=== PATIENT | female | born 1985 | race Caucasian/White ===

== ENCOUNTER 2019-08-16 16:07 | Emergency (ER) | payer OTHER, SELFPAY ==
--- NOTE | 2019-08-16 16:17 | PC.NURSE ---
Paper documentation exists on this patient due to [employer] downtime on 08/16/19 from 1520 to [???] .
--- NOTE | 2019-08-16 16:49 | ED_ITS ---
HPI - Wound/Laceration General Chief Complaint: Wound/Laceration Time Seen by Provider: 08/16/19 16:29 Source: patient Mode of arrival: ambulatory Limitations: no limitations History of Present Illness HPI narrative: This is a 33-year-old female that presents emergency department for laceration sustained 2 days ago. Reports she was in [place] walking into a spot and hit her escobedo on a concrete wall. Reports she has been cleaning the area daily. Reports she declined any treatment initially. Reports she is worried about infection due to being on immunosuppressive medications. Reports she is up-to-date on tetanus. Denies fever, erythema, or abnormal drainage. Review of Systems Review of Systems: Narrative: CONSTITUTIONAL: Denies fever SKIN: Reports laceration. Denies erythema All systems reviewed & are unremarkable except as noted in HPI and below PMFSH Past Medical History Medical History (Updated 08/16/19 @ 17:00 by Heidi Purcell PA-C) History of systemic lupus erythematosus Social History Social History (Updated 08/16/19 @ 16:55 by Heidi Purcell PA-C) Substance use: never Gender identity (if verbalized by the patient): Female Exam Narrative: Exam Narrative: GENERAL: Well-appearing, well-nourished, and in no acute distress. HEAD: Normocephalic, atraumatic. EYES: EOMI. EXTREMITIES: Normal range of motion. 1cm linear laceration into subcutaneous tissue over left escobedo. No edema, erythema or abnormal drainage. SKIN: Warm, dry, no rash. NEURO: No focal deficits. Alert and oriented x3. PSYCH: Normal mood and affect MDM - Wound/Laceration MDM Narrative Medical decision making narrative: Patient presents the emergency department for left escobedo laceration sustained 2 days ago. Patient is afebrile and nontoxic- appearing. No erythema or normal drainage to the wound to suggest infection at this time. With patient being on immunosuppressive medications and having an open wound, I will start her on a prophylactic antibiotic. She is already up-to-date on tetanus. She was instructed on wound care. She is to follow-up with primary care doctor. She was given warnings to return to the ER Critical Care Time Critical Care Time Critical Care Time: No Discharge Plan Discharge Clinical Impression: Laceration Patient Disposition: Home, Self-Care Condition: Stable Instructions: Antibiotic Form, Laceration Without Closure (ED) Additional Instructions: Return to the emergency department if you experience fever, redness or swelling of your wound, abnormal drainage from your wound, or any other symptoms that are concerning to you. Apply antibiotic ointment daily. Do not soak the wound. Clean with mild soap and water daily Follow-up with your primary care doctor Prescriptions: New cephalexin 500 mg capsule 500 mg PO Q6H 5 Days Qty: 20 RF: 0 Follow-up/Referrals: Isak Lou MD [Primary Care Provider] - 1 Week Time of Disposition: 16:50
[2019-08-16 17:02] VITALS: BP 113/73; PULSE 110; RESP 18; TEMP 37.2; O2SAT 99
== END 2019-08-16 17:03 | disposition home or self-care (01) ==
PROVIDERS: Emergency Provider Emergency Medicine; PCP Family Medicine
DX: S81.812A Laceration without foreign body, left lower leg, initial encounter (principal); M32.9 Systemic lupus erythematosus, unspecified; W22.01XA Walked into wall, initial encounter
CPT/HCPCS: 99283

== ENCOUNTER 2020-01-12 12:37 | Outpatient (CLI) | payer OTHER, SELFPAY ==
--- NOTE | ~2020-01-12 | MR_ITS ---
EXAMINATION: MR lumbar spine wo con DATE: 01/12/2020 13:27 INDICATION: Low back pain. TECHNIQUE: Magnetic resonance imaging (MRI) of the lumbar spine was performed without intravenous con trast. Sequences included sagittal T2-weighted FSE, sagittal T2-weighted FS FSE, sagittal T1-weighted FSE, and axial T2-weighted FSE. COMPARISON: Lumbar spine radiographs 04/22/2015 FINDINGS: Bone alignment is normal. Vertebral body heights are normal. There is moderately decreased disc height at L5-S1. The distal spinal cord signal intensity is normal. The conus medullaris is at T 12. The following disc levels are specifically discussed: L1-L2: The disc does not extend beyond the endplate margin. There is mild bilateral facet joint osteo arthritis. There is no neural foraminal stenosis. There is no central canal stenosis. L2-L3: There is a left central extrusion. There is mild bilateral facet joint osteoarthritis. There i s mild bilateral neural foraminal stenosis. There is mild central canal stenosis. L3-L4: The disc is bulging and has an annular fissure. There is mild bilateral facet joint osteoarthr itis. There is mild bilateral neural foraminal stenosis. There is mild central canal stenosis. L4-L5: There is a broad-based central extrusion. There is mild bilateral facet joint osteoarthritis. There is mild bilateral neural foraminal stenosis. There is mild central canal stenosis. L5-S1: The disc is bulging and has an annular fissure. There is mild bilateral facet joint osteoarthr itis. There is mild bilateral neural foraminal stenosis. There is mild central canal stenosis. IMPRESSION: 1. Moderate lumbar spondylosis. Reviewed, dictated and finalized at location A.
== END 2020-01-12 12:38 | disposition home or self-care (01) ==
PROVIDERS: PCP Family Medicine; Visit Provider Anesthesiology Pain Medicine
DX: M47.896 Other spondylosis, lumbar region (principal)
CPT/HCPCS: 72148

== ENCOUNTER 2020-05-20 09:30 | Outpatient (RCR) | payer OTHER, SELFPAY ==
--- NOTE | 2020-03-05 16:39 | PTOPEVAL ---
Thank you for referring Raine Bucio to [facility] The patient is scheduled to be seen for therapy? 2x/week for 8 weeks. Please review, sign, date and return this plan of care MIGUELANGEL. I agree with and certify that the following plan of care is medically necessary. Referring Physician Date Admitting Provider: Attending Provider: Hari Lima, *PT Outpatient Evaluation Start: 03/05/20 09:24 Freq: Status: Active Protocol: Document 03/05/20 09:22 REBECCA (Rec: 03/05/20 10:04 [email or web address] [id number]) Therapy Assessment Status Assessment Status Assessment Status Evaluation Outpatient Past Medical History Past Medical History Source of Past Medical History Patient Neurological History Hx Neurological Disorders No Significant History Cardiovascular History Hx Cardiac Disorders No Significant History Respiratory History Hx Respiratory Disorders No Significant History Musculoskeletal History Hx Arthritis Yes: RA and OA of back Hx Back Pain Yes: chronic Endocrine History Hx Systemic Lupus Erythematosus Yes Evaluation Information Problem Diagnosis lumbago Onset 08/29 Cause unknown. Additional Evaluation Detail last bout of therapy [id number] for back and feet and again in 2018 for back she has not been working since 07/2018 Subjective Information She has been having back pain Query Text:As Reported By Patient/ since 08/29. She did take Family narcotics for the pain, but was weaned off in October. She was seen at the ED 01/26 due to the increased pain. She had a steriod injection to her back without relief. She performs stretching to keep the back from locking up . She reports left hip pain that radiating to back and left LE. Reports her left LE turns out when walking. She feels like her back pain is a disease that just attacks her. Reports difficulty with sleeping, walking or standing for prolonged time. She is limited with lifting to light objects due to the pain. She is unable to lift her 38# child. She does not
--- NOTE | 2020-04-01 12:52 | PCPTNOTE ---
Patient did not show up for scheduled appointment this date. Pt states she was running late for her appointment and was not going to make it. She was rescheduled for a treatment next wk. Then reschedule her re-eval.
--- NOTE | 2020-04-14 10:32 | PTOPEVAL ---
Thank you for referring Raine Bucio to [facility].? She has attended 7 therapy visits with limited progress with strength, function and tolerance with HEP. The patient is scheduled to be seen for therapy? 1-2 x/week for 3-4 weeks for 6 additional therapy visits. Please review, sign, date and return this plan of care MIGUELANGEL. I agree with and certify that the following plan of care is medically necessary. Referring Physician Date Attending Provider: Hari Lima, *PT Outpatient Evaluation Start: 03/05/20 09:24 Freq: Status: Active Protocol: Document 04/14/20 08:00 CAP (Rec: 04/14/20 08:50 CAP [id number]) Therapy Assessment Status Assessment Status Assessment Status Re-evaluation Evaluation Information Problem Diagnosis lumbago Onset 08/29 Cause unknown. Additional Evaluation Detail last bout of therapy [id number] for back and feet and again in 2018 for back she has not been working since 07/2018 She has been having back pain since 08/29. She did take narcotics for the pain, but was weaned off in October. She was seen at the ED 01/26 due to the increased pain. She had a steriod injection to her back without relief. Subjective Information She is performing the Query Text:As Reported By Patient/ exercises to keep the back Family loose. She reports no changes in the left hip pain that radiating to back and left LE. She sleeps on an incline with pillows due the pain. Denies any progress with her yousif with walking or standing. She is limited with lifting to light objects of 20-25# due to the pain. She is unable to lift her 38# child. She is performing only light food task of warming up food. Her sister helps with information systems professor and food prep. Pain Assessment Timing of Pain Assessment Timing of Pain Assessment Re-assessment Pain Scale Pain Scale Used Numeric (1 - 10) Self Report Pain Assessment Left Back Reported Pain Level 7 Pain Description Aching,Dull,Radiating,Sharp
--- NOTE | 2020-04-23 09:51 | PCPTNOTE ---
Patient arrived to appointment 30 min early and was unable to stay for her scheduled visit time.
--- NOTE | 2020-05-01 13:50 | PCPTNOTE ---
Patient called & cancelled scheduled appointment this date due to being sick.
--- NOTE | 2020-05-12 10:58 | PTOPEVAL ---
Thank you for referring Raine Bucio to [facility].? The patient is scheduled to be seen for therapy? 1 x/week for 3-4 weeks. Please review, sign, date and return this plan of care MIGUELANGEL. I agree with and certify that the following plan of care is medically necessary. Referring Physician Date Attending Provider: Hari Lima, Referring Provider: *PT Outpatient Evaluation Start: 03/05/20 09:24 Freq: Status: Active Protocol: Document 05/12/20 09:55 REBECCA (Rec: 05/12/20 10:34 REBECCA [id number]) Therapy Assessment Status Assessment Status Assessment Status Re-evaluation/Progress Note Evaluation Information Problem Diagnosis lumbago Onset 08/29 Cause unknown. Additional Evaluation Detail last bout of therapy [id number] for back and feet and again in 2018 for back she has not been working since 07/2018 She has been having back pain since 08/29. She did take narcotics for the pain, but was weaned off in October. She was seen at the ED 01/26 due to the increased pain. She had a steriod injection to her back without relief. Subjective Information She reports increased pain Query Text:As Reported By Patient/ with lifting, walking > 30 min Family , standing > 30 min, prolonged sitting. She does feel like the exercises are helping. She is performing HEP 5-7x/wk. She report pain is staying in the back vs radiating into the hip region. She sleeps occasionally incline with pillows due the pain. She is unable to lift light objects of 20-25# due to the pain. Pain Assessment Timing of Pain Assessment Timing of Pain Assessment Re-assessment Pain Scale Pain Scale Used Numeric (1 - 10) Self Report Pain Assessment Left Back Reported Pain Level 6 Pain Description Aching,Dull,Radiating,Sharp Pain Frequency Chronic,Continuous Lowest Pain Intensity 5 Greatest Pain Intensity 8 Pain Aggravating Factors ADL's,Bending,Exercise/ Activity,Lifting,Prolonged
--- NOTE | 2020-05-20 09:43 | PCPTNOTE ---
Patient did not show up for scheduled appointment this date.Called pt to inform her she had exceeded the cancellation/no show policy. Her remaining appointments will be removed.
--- NOTE | 2020-05-22 09:37 | PCPTNOTE ---
Admitting Provider: Attending Provider: Hari LimaMD Patient:Raine Bucio Date of :1985 Discharge Note Patient has not returned for any further treatments since 05/12/2020, therefore she will be discharged at this time. Patient?s initial visit was on 03/05/2020 09:15 and she had a total of 9 visits. She had 5 no show/cancelled visits. No changes in function or goals since update on 05/12/20. The goals have been partially met. Thank you for referring this patient to [facility]. Please review, sign, date and return this discharge summary MIGUELANGEL. I have been updated about the patient's current status and I agree with discharge from the above service at this time. Referring Physician Date
== END 2020-05-22 11:49 | disposition home or self-care (01) ==
LOC: ANHPT 09:30
PROVIDERS: PCP Family Medicine; Visit Provider Anesthesiology Pain Medicine
DX: M54.5 Low back pain (principal)
CPT/HCPCS: 97014; 97110; 97140; 97163; 97530; G0283

== ENCOUNTER 2020-05-25 10:02 | Outpatient (CLI) | payer OTHER, SELFPAY ==
--- NOTE | ~2020-05-25 | XR_ITS ---
EXAMINATION: XR chest 2V DATE: 05/25/2020 10:21 INDICATION: Encounter for therapeutic drug monitoring. Lupus and rheumatoid arthritis. TECHNIQUE: Frontal and lateral views of the chest were obtained. COMPARISON: Chest single view 03/01/2008 FINDINGS: The chest demonstrates clear lungs without pneumonia, pleural effusion, or pneumothorax. Th e heart size is normal. There are bilateral breast implants. IMPRESSION: 1. No acute cardiopulmonary disease. Reviewed, dictated and finalized at location A. GER GAS
== END 2020-05-25 10:03 | disposition home or self-care (01) ==
LOC: ANHIMG 10:09
PROVIDERS: PCP Family Medicine; Visit Provider Internal Medicine Rheumatology
DX: Z51.81 Encounter for therapeutic drug level monitoring (principal)
CPT/HCPCS: 71046

== ENCOUNTER 2021-01-14 11:48 | Emergency (ER) | payer MEDICARE, MEDICAID, SELFPAY ==
--- NOTE | ~2021-01-14 | XR_ITS ---
EXAMINATION: XR chest 1V DATE: 01/14/2021 12:31 INDICATION: Speech deficit. TECHNIQUE: A single frontal view of the chest was obtained. COMPARISON: Chest 2 views 05/25/2020 FINDINGS: The chest demonstrates clear lungs without pneumonia, pleural effusion, or pneumothorax. Th e heart size is normal. Breast implants are noted. IMPRESSION: 1. No acute cardiopulmonary disease. Reviewed, dictated and finalized at location A.
--- NOTE | ~2021-01-14 | CT_ITS ---
EXAMINATION: CT brain wo con DATE: 01/14/2021 12:27 INDICATION: Expressive aphasia TECHNIQUE: Computed tomography (CT) of the head was performed without intravenous contrast. The mA wa s adjusted according to patient size. Iterative reconstruction technique was employed. Exam dose: 68 1.00 mGy-cm total exam DLP. COMPARISON: 10/14/2007 CT brain FINDINGS: No intracranial mass lesion or hemorrhage or cerebrovascular accident is evident. No midlin e shift or mass effect effect. Normal ortega-white matter differentiation. Normal ventricular size. No subdural or epidural hematoma. The mastoid air cells and included paranasal sinuses are normally aerated. The frontal sinuses are vi rtually undeveloped. No fracture or bone destruction of the cranial vault. IMPRESSION: No significant abnormality Reviewed, dictated and finalized at Location A. Reviewed, dictated and finalized at location A. IMPRESSION: No significant abnormality
[2021-01-14 12:02] VITALS: BP 112/45; PULSE 100; RESP 16; TEMP 37.5; O2SAT 99
--- NOTE | 2021-01-14 12:04 | ECG_ITS ---
Measurements Intervals [place] Rate: 88 P: 73 WI: 122 QRS: 30 QRSD: 91 T: 53 QT: 370 QTc: 450 Interpretive Statements SINUS RHYTHM POSSIBLE LEFT ATRIAL ENLARGEMENT BORDERLINE ST-T WAVE ABNORMALITY- ANTEROLAT/INF LEADS BORDERLINE ECG Electronically Signed On 01-14-2021 15:32:27 CDT by Tad Munguia D.O.
[2021-01-14 12:20] LABS: Basophils Percent Auto 0.3 % (0.2-1.2); Eosinophils Percent Auto 0.1 % (0-4.4); Hematocrit 38.5 % (37.0-47.0); Immature Granulocyte Absolute 0.02 K/mm3 (0.00-0.031); Immature Granulocyte Percent A 0.3 % (0-0.5); Lymphocytes Absolute Auto 0.94 K/mm3 (0.9-3.2); Lymphocytes Percent Auto 12.1 % (18.3-44.2); Mean Corpuscular HGB Conc 33.8 g/dl (32-36); Mean Corpuscular Hemoglobin 31.2 pg (26-34); Mean Corpuscular Volume 92.3 fl (80-100); Mean Platelet Volume 9.1 fl (7.4-10.4); Monocytes Absolute Auto 0.4 K/mm3 (0.1-0.6); Neutrophils Absolute Auto 6.4 K/mm3 (1.3-6.7); Neutrophils Percent Auto 82.2 % (45.5-73.1); Platelet Count Result 236 k/mm3 (150-375); Red Blood Count 4.17 M/mm3 (4.2-5.4); Red Cell Distribution Width 12.5 % (11.5-14.5); White Blood Count 7.8 K/mm3 (4.5-10.0)
[2021-01-14 12:40] LABS: Prothrombin Time 13.2 Seconds (11.1-14.7); Troponin I < 0.012 ng/mL (0.000-0.034)
[2021-01-14 12:48] LABS: Anion Gap 5 mmol/L (8-16); Blood Urea Nitrogen 12 mg/dL (7-17); Calcium 9.4 mg/dL (8.4-10.2); Carbon Dioxide 29 mmol/L (22-30); Chloride 105 mmol/L (98-107); Estimated CRCL calculation 45 ml/min; Estimated Glomerular Filt Rate 43; Glucose 98 mg/dL (65-105); Potassium 4.5 mmol/L (3.4-5.0); Sodium 139 mmol/L (137-145)
[2021-01-14 14:52] VITALS: BP 106/52; PULSE 65; RESP 16; TEMP 37.2; O2SAT 99
--- NOTE | 2021-01-14 15:35 | ED.GENADULT ---
HPI - General Adult General Chief complaint: Neuro Symptoms/Deficit Stated complaint: difficulty speaking for 2 months Time Seen by Provider: 01/14/21 15:08 Source: patient and RN notes reviewed Mode of arrival: ambulatory Limitations: no limitations History of Present Illness HPI narrative: Patient is a 35-year-old female who presents for evaluation of some difficulty with expressing herself noting that she knows what she wants to say but has difficulty getting the words out this is been going on for 2 months patient has not seen primary care for above presents per request of primary patient notes she has had some intermittent mild head denies any other deficits or complaints or similar occurrence Related Data Allergies Allergy/AdvReac Type Severity Reaction Status Date / Time No Known Allergies Allergy Verified 01/14/21 15:31 Review of Systems Review of Systems: All systems reviewed & are unremarkable except as noted in HPI and below PMFSH Past Medical History Medical History History of systemic lupus erythematosus Social History Social History Smoking status: Former smoker Alcohol intake: never Substance use: never Gender identity (if verbalized by the patient): Female Exam Narrative: Exam Narrative: GENERAL: Well-appearing, well-nourished, and in no acute distress. HEAD: Normocephalic, atraumatic. EYES: PERRLA and EOMI. ENT: Nares clear, no rhinorrhea or epistaxis. Mucous membranes moist. CHEST: Clear to auscultation. No respiratory distress. No wheezes rales or rhonchi HEART: Regular rate and rhythm. No murmur heard. Normal peripheral pulses. ABDOMEN: Soft, nontender, nondistended EXTREMITIES: Normal range of motion. No edema. SKIN: Warm, dry, no rash. NEURO: No focal deficits. Alert and oriented x3. Cranial nerves II through XII grossly intact. Normal speech. Normal gait. Cerebellar intact. No pronator drift. Equal rn allergy. PSYCH: Normal mood and affect. Course Course Emergency Course: Patient evaluated for expressive aphasia no concerning findings on her evaluation today will be discharged back for follow-up with her primary care for reevaluation referrals if necessary provided with reasons to return. ABCs and vital signs intact and stable Vital Signs Vital signs: Vital Signs Temperature 99.5 F 01/14/21 12:02 Pulse Rate 100 01/14/21 12:02 Respiratory Rate 16 01/14/21 12:02 Blood Pressure 112/45 L 01/14/21 12:02 Pulse Oximetry 99 01/14/21 12:02 Temperature 99.0 F 01/14/21 14:52 Pulse Rate 65 01/14/21 14:52 Respiratory Rate 16 01/14/21 14:52 Blood Pressure 106/52 L 01/14/21 14:52 Pulse Oximetry 99 01/14/21 14:52 Medical Decision Making MDM Narrative Medical decision making narrative: On presentation patient is with no focal neurological deficits on exam. Subarachnoid hemorrhage is felt to be unlikey at this time. There is no history of fever, and neck is supple without meningismus, making meningitis unlikely. No traumatic history or signs of trauma on exam. No risk factors for CVA, risk factors reviewed. NO ocular signs on exam and in history to suggest acute glaucoma. Patients headache is felt to be a reasonable candidate for outpatient evaluation Vital Signs Vital Signs: Vital Signs Temperature 99.5 F 01/14/21 12:02 Pulse Rate 100 01/14/21 12:02 Respiratory Rate 16 01/14/21 12:02 Blood Pressure 112/45 L 01/14/21 12:02 Pulse Oximetry 99 01/14/21 12:02 Temperature 99.0 F 01/14/21 14:52 Pulse Rate 65 01/14/21 14:52 Respiratory Rate 16 01/14/21 14:52 Blood Pressure 106/52 L 01/14/21 14:52 Pulse Oximetry 99 01/14/21 14:52 Lab Data Result diagrams: 01/14/21 12:08 01/14/21 12:08 Labs: Lab Results 01/14/21 01/14/21 01/14/21 Range/Units 12:08 12:08 12:08 WBC 7.8 (4.
== END 2021-01-14 16:12 | disposition home or self-care (01) ==
LOC: ANHED 16:00
PROVIDERS: Emergency Provider Emergency Medicine
DX: F80.1 Expressive language disorder (principal); M32.9 Systemic lupus erythematosus, unspecified; Z87.891 Personal history of nicotine dependence
CPT/HCPCS: 36415; 70450; 71045; 80048; 84484; 85025; 85610; 85730; 93005; 99284

== ENCOUNTER 2021-02-05 10:30 | Emergency (ER) | payer MEDICARE, MEDICAID, SELFPAY ==
--- NOTE | ~2021-02-05 | XR_ITS ---
EXAMINATION: XR ankle LT min 3V EXAM DATE: 02/05/2021 11:14 INDICATION: Initial encounter following injury, with pain of the left ankle laterally. TECHNIQUE: Left ankle frontal, lateral and oblique projections obtained and reviewed. Comparison is m inocente to prior examination from 11/13/2018. FINDINGS: The left ankle mortise appears intact. There are no acute fractures or dislocations ident ified. There is no subcutaneous gas. There is soft tissue swelling ankle laterally. There are no r adiopaque foreign bodies. IMPRESSION: 1. XR ankle LT min 3V exam without acute osseous findings. 2. Soft tissue swelling. Reviewed, dictated and finalized at location B.
[2021-02-05 11:00] VITALS: BP 112/68; PULSE 95; RESP 12; O2SAT 99
[2021-02-05 11:06] VITALS: BP 111/71; PULSE 98; RESP 14; TEMP 37.4; O2SAT 99
[2021-02-05] MEDS: IBUPROFEN 600 MG TABLET PO (11:13)
--- NOTE | 2021-02-05 12:09 | ED.GENADULT ---
HPI - General Adult General Chief complaint: Extremity Injury, Lower <Thony Neumann PA-C - Last Filed: 02/05/21 12:14> Stated complaint: fall, Left ankle injury <Thony Neumann PA-C - Last Filed: 02/05/21 12:14> Time Seen by Provider: 02/05/21 10:42 <Thony Neumann PA-C - Last Filed: 02/05/21 12:14> Source: patient and RN notes reviewed <Thony Neumann PA-C - Last Filed: 02/05/21 12:14> Mode of arrival: ambulatory <Thony Neumann PA-C - Last Filed: 02/05/21 12:14> Limitations: no limitations <Thony Neumann PA-C - Last Filed: 02/05/21 12:14> History of Present Illness HPI narrative: Patient 35-year-old female who presents with left ankle injury that occurred last night after rolling the ankle while walking notes abrasion to the escobedo patient notes aching pain at the ankle joint worse with weightbearing and activity denies any other injuries or complaints presents in no distress has not taken anything for her symptoms <Thony Neumann PA-C - Last Filed: 02/05/21 12:14> Related Data Allergies/adverse reactions: Allergies Allergy/AdvReac Type Severity Reaction Status Date / Time No Known Allergies Allergy Verified 01/14/21 15:31 <Thony Neumann PA-C - Last Filed: 02/05/21 12:14> Review of Systems Review of Systems: All systems reviewed & are unremarkable except as noted in HPI and below <Thony Neumann PA-C - Last Filed: 02/05/21 12:14> [facility] Past Medical History Medical History: Medical History History of systemic lupus erythematosus <Thony Neumann PA-C - Last Filed: 02/05/21 12:14> Social History Social History: Social History Smoking status: Former smoker Alcohol intake: never Substance use: never Gender identity (if verbalized by the patient): Female <Thony Neumann PA-C - Last Filed: 02/05/21 12:14> Exam Narrative: GENERAL: Well-appearing, well-nourished, and in no acute distress. HEAD: Normocephalic, atraumatic. EYES: PERRLA and EOMI. ENT: Nares clear, no rhinorrhea or epistaxis. Mucous membranes moist. NECK: Supple. No adenopathy or masses. CHEST: Clear to auscultation. No respiratory distress. No wheezes rales or rhonchi HEART: Regular rate and rhythm. No murmur heard. Normal peripheral pulses. ABDOMEN: Soft, nontender, nondistended. EXTREMITIES: Bruising swelling and tenderness of the left ankle joint, abrasion of the left escobedo SKIN: Warm, dry, no rash. NEURO: No focal deficits. Alert and oriented x3. Cranial nerves II through XII grossly intact, neurovascularly intact PSYCH: Normal mood and affect. <Thony Neumann PA-C - Last Filed: 02/05/21 12:14> Course Course Emergency Course: Patient in the room no distress aware of case findings treatment plan diagnosis Eze wrap crutches applied will be discharged home provided with orthopedic follow-up <Thony Neumann PA-C - Last Filed: 02/05/21 12:14> Vital Signs Vital signs: Vital Signs Pulse Rate 95 02/05/21 11:00 Respiratory Rate 12 02/05/21 11:00 Blood Pressure 112/68 02/05/21 11:00 Pulse Oximetry 99 02/05/21 11:00 Temperature 99.4 F 02/05/21 11:06 Pulse Rate 98 02/05/21 11:06 Respiratory Rate 14 02/05/21 11:06 Blood Pressure 111/71 02/05/21 11:06 Pulse Oximetry 99 02/05/21 11:06 <Thony Neumann PA-C - Last Filed: 02/05/21 12:14> Vital Signs Pulse Rate 95 02/05/21 11:00 Respiratory Rate 12 02/05/21 11:00 Blood Pressure 112/68 02/05/21 11:00 Pulse Oximetry 99 02/05/21 11:00 Temperature 99.4 F 02/05/21 11:06 Pulse Rate 98 02/05/21 11:06 Respiratory Rate 14 02/05/21 11:06 Blood Pressure 111/71 02/05/21 11:06 Pulse Oximetry 99 02/05/21 11:06 <Tami Dominguez MD - Last Filed: 02/05/21 17:14> Medical Decision Making MDM Shanika M
== END 2021-02-05 12:25 | disposition home or self-care (01) ==
PROVIDERS: Emergency Provider General Practice
DX: S93.402A Sprain of unspecified ligament of left ankle, initial encounter (principal); S96.912A Strain of unspecified muscle and tendon at ankle and foot level, left foot, initial encounter; M32.9 Systemic lupus erythematosus, unspecified; Z87.891 Personal history of nicotine dependence; X50.9XXA Other and unspecified overexertion or strenuous movements or postures, initial encounter; Y93.01 Activity, walking, marching and hiking
CPT/HCPCS: 73610; 99283; A9270

== ENCOUNTER 2022-03-18 09:45 | Emergency (ER) | payer OTHER, SELFPAY ==
[2022-03-18] VITALS (9 sets, daily range): BP systolic 118–122; BP diastolic 65–68; PULSE 86–100; RESP 13–20; O2SAT 96–100
--- NOTE | ~2022-03-18 | XR_ITS ---
EXAMINATION: XR chest 1V portable INDICATION: Shortness of breath and fever, COVID 19 positive TECHNIQUE: Portable AP chest at 1057 hours COMPARISON: 01/14/2021 FINDINGS: The lungs are free of acute opacities. No pleural effusion or pneumothorax. The cardiomedia stinal silhouette is normal. IMPRESSION: 1. No acute cardiopulmonary abnormality. Reviewed, dictated and finalized at location B.
--- NOTE | 2022-03-18 10:36 | ED.URI ---
HPI - URI/Sore Throat General Chief Complaint: Upper Respiratory Infection Stated Complaint: covid+, cough Time Seen by Provider: 03/18/22 09:58 History of Present Illness HPI Narrative: 36-year-old female history of rheumatoid arthritis presents emergency room for evaluation of a productive cough. Patient states that she was diagnosed with COVID on Monday and has been experiencing a productive cough since. has been taking Mucinex DM and Robitussin with little resolution of symptoms. Also complains of a labile temperature. Has been taking Tylenol and ibuprofen for her fevers and body aches. Denies any shortness of breath or difficulty breathing. Related Data Home Medications Medication Instructions Recorded Confirmed celecoxib 200 mg capsule 200 mg PO DAILY 02/17/21 04/02/21 duloxetine 20 mg capsule,delayed 20 mg PO DAILY 02/17/21 04/02/21 release etanercept 50 mg/mL (1 mL) 50 mg subcut WEEKLY 02/17/21 04/02/21 subcutaneous syringe (Enbrel) gabapentin 300 mg capsule 300 mg PO TID 02/17/21 04/02/21 hydroxychloroquine 200 mg tablet 200 mg PO DAILY 02/17/21 04/02/21 prednisone 50 mg tablet 60 mg PO DAILY 02/17/21 04/02/21 Allergies Allergy/AdvReac Type Severity Reaction Status Date / Time No Known Allergies Allergy Verified 03/18/22 10:16 Review of Systems Review of Systems: CONSTITUTIONAL: Denies fever, chills, or sweats. EYES: Denies visual changes, redness, or discharge. ENT: Denies rhinorrhea, congestion, sore throat, or otalgia. CARDIOVASCULAR: Denies chest pain, palpitations, or edema. RESPIRATORY: Reports cough GASTROINTESTINAL: Denies abdominal pain, nausea, vomiting, or diarrhea. GENITOURINARY: Denies dysuria or hematuria. SKIN: Denies rash or itching. MUSCULOSKELETAL: Denies back pain, joint pain, or myalgia. NEUROLOGIC: Denies headache, numbness, dizziness, or weakness. PSYCHIATRIC: Denies anxiety or depression. [facility] Past Medical History Medical History Anxiety Arthritis History of systemic lupus erythematosus Family History Family History Mother Skin cancer Depression Anxiety Social History Social History Smoking status: Former smoker Alcohol intake: never Substance use: never Gender identity (if verbalized by the patient): Female Exam Narrative: GENERAL: Well-appearing, well-nourished, no physical limitations, and in no acute distress. HEAD: Normocephalic, atraumatic. EYES: Conjunctivae normal, PERRLA and EOMI. CHEST: Clear to auscultation. No respiratory distress. No wheezes rales or rhonchi. No tenderness. HEART: Regular rate and rhythm. No murmur heard. Normal peripheral pulses. EXTREMITIES: Normal range of motion. No edema. No clubbing or cyanosis SKIN: Warm, dry, no rash. No noted wounds NEURO: No focal deficits. Alert and oriented x3. MAEW. CN's II-XI intact bilaterally, normal gait PSYCH: Cooperative. Normal mood and affect. Course Vital Signs Vital signs: Vital Signs Pulse Rate 86 03/18/22 10:08 Respiratory Rate 13 03/18/22 10:08 Pulse Oximetry 98 03/18/22 10:08 Pulse Rate 87 03/18/22 11:00 Respiratory Rate 14 03/18/22 11:00 Blood Pressure 118/68 03/18/22 10:15 Pulse Oximetry 100 03/18/22 11:04 Oxygen Delivery Room Air 03/18/22 11:04 MDM - URI/Sore Throat Imaging Data Radiologist's impression: Impressions Chest X-Ray 03/18/22 11:02 IMPRESSION: 1. No acute cardiopulmonary abnormality. Discharge Plan Discharge Clinical Impression: COVID, Upper respiratory infection, Cough Patient Disposition: Home, Self-Care Condition: Stable Instructions: Antibiotic Form, COVID-19 (Coronavirus Disease 2019) (ED) Prescriptions: New prednisone 20 mg tablet 60 mg PO DAILY 5 Days Qty: 15 0RF albuterol sulfate [Proventil
--- NOTE | 2022-03-18 11:04 | PC.NURSE ---
Patient report given to JOHANA Summers. All questions answered and care of patient transferred.
== END 2022-03-18 11:41 | disposition home or self-care (01) ==
PROVIDERS: Emergency Provider Nurse Practitioner Family; PCP Nurse Practitioner Family
DX: U07.1 COVID-19 (principal); M06.9 Rheumatoid arthritis, unspecified; F41.9 Anxiety disorder, unspecified; M32.9 Systemic lupus erythematosus, unspecified; Z87.891 Personal history of nicotine dependence
CPT/HCPCS: 71045; 96372; 99283; J1100

== ENCOUNTER 2024-08-16 10:36 | Emergency (ER) | payer MEDICARE, SELFPAY ==
--- NOTE | ~2024-08-16 | CT_ITS ---
CLINICAL INDICATION: Abdominal pain COMPARISON: 08/15/2006 TECHNIQUE: Multiple contiguous axial images of the abdomen and pelvis were performed following the ad ministration of with 100 mL Omnipaque-350 intravenous contrast The dose-length product (DLP) was 296.14 mGy-cm. Automated exposure control and iterative reconstruction technique were employed. FINDINGS/OBSERVATIONS: Visualized lower thorax: The bilateral lung bases are clear. The heart is of normal size, without pericardial effusion. Small hiatal hernia is present. Liver: The liver enhances homogeneously and is enlarged measuring 22 cm in longitudinal dimension. Trace per iportal edema. Gallbladder and biliary system: The gallbladder is only minimally distended, and otherwise unremarkable. Pancreas: The pancreas enhances homogeneously without ductal dilatation. Spleen: The spleen enhances homogeneously and is not enlarged measuring 10 cm in longitudinal dimension. Kidneys: The bilateral kidneys enhance symmetrically without hydronephrosis or renal calculi. Adrenal glands: Unremarkable. Gastrointestinal tract: Moderate fecal stasis. Appendix: The appendix is not definitively visualized. However, no pericecal inflammatory change is identified suggest the presence of acute appendicitis. Vasculature: Unremarkable. No aneurysmal dilatation or significant stenosis. Lymph nodes: No pathologically enlarged or morphologically suspicious lymph nodes within the retroperitoneum or at the root of the mesentery. Pelvic structures: The bladder is only minimally distended and otherwise unremarkable. The uterus is anteverted and anteflexed. Body wall and musculoskeletal: Trace degenerative disease of the level of L5/S1. IMPRESSION: No acute intra-abdominal pathology. Innumerable nonacute findings, as detailed above. Reviewed, dictated and finalized at location A. RWALKER
[2024-08-16 10:40] VITALS: BP 118/90; PULSE 60; RESP 14; TEMP 36.5; O2SAT 100
--- OUTSIDE RECORDS SUMMARY | 2024-08-16 11:19 | XMS_ITS | Encounter Summary ---
Author Organization [facility] [employer] Address [address] [place] [address] Care Team Providers Care Purchaser Name Role Phone Isaac Verdugo MD Primary Care Provider [phone] Encounter Details Date Type Department Care Team (Late st Contact Info) Description 08/20/2007 Outpatient Historical [facility] Conversion, History Social History Tobacco Use Types Packs/Day Years Used Date Smoking Tobacco: Never Assessed Comments Unknown Sex and Gender Information Value Date Recorded Sex Assigned at Not on file Legal Sex Female 3:53 AM ISSUER Gender Identity Not on file Sexual Orientation Not on file documented as of this encounter Plan of Treatment Not on file documented as of this encounter Visit Diagnoses Not on filedocumented in this encounter Care Teams Purchaser Relationship Specialty Start Date End Date Isaac Verdugo MD PCP - General 07/18/08 09/10/19 documented as of this encounter
--- OUTSIDE RECORDS SUMMARY | 2024-08-16 11:19 | XMS_ITS | Data Portability ---
Author Organization [facility] Address [address] [place] [address] Assessment Encounter Date Assessment Date Assessment LastModified by Organization Details LastModified Time 06/23/2021 06/23/2021 Annual gynecological exam performed. Patient will come back in a year unless there are new symptoms. Not available 06/23/2021 12:50:11 06/28/2022 06/28/2022 Annual gynecological exam performed. Patient will come back in a year unless there are new symptoms. [email or web address] Not available 06/28/2022 14:37:54 Plan of Treatment Reminders Order Date Submit Date Provider Last Modified By Organization Details Last Modified Time Details Appointments None recorded. Lab None recorded. Referral urogynecolo gist referral - Please contact Faby to schedule an appt. If you have any questions or require further information , please contact me at [phone]. Thank you, LANIE Dennis 2020 021 [email or web address] Marcello Hercules MD, [address], [place], [address], 10:04:45 gastroenter ology surgery referral - External hemorrhoids Please contact this patient to schedule an appointment . This patients insurance is [employer] [place].Rojas ched are the patients demographic s and most recent office visit notes.If you have any questions, please contact me at [phone].Thank you,Nunu, Referral's 2021 022 [email or web address] [email or web address] Baljit Guevara MD, [address] [place], [address], 3 16:52:17 Procedures None recorded. Surgeries None recorded. Imaging None recorded. Medication Orders None recorded. Patient TargetsNo targets recorded. Patient InstructionsNo instructions recorded. Reason for Referral Urogynecologist Referral for Urinary incontinence Please contact Faby to schedule an appt. If you have any questions or require further information, please contact me at [phone]. Thank you, LANIE Dennis Referring Physician: Dawna Car, [employer], Encounter Date: 06/23/2021 Gastroenterology Surgery Ref erral for External hemorrhoids External hemorrhoids External hemorrhoidsPlease contact this patient to schedule an appointment. This patients insurance is [employer] Integrated Medicare-Medicaid.Attached are the patients demographics and most recent office visit notes.If you have any questions, please contact me at [phone].Thank you,Agueda Eddy's Referring Physician: Dawna Car [employer]CH[employer], Encounter Date: 06/28/2022 Results Created Date Observation Date Name Description Value Unit Range Abnormal Flag Note LastModifiedBy Organization Detail LastModifiedTime 06/23/20 21 06/23/2021 urina lysis , dipst ick Leukocytes neg Not Available Starla yadav [address], [place], [address], 06/23/2021 16:16:22 06/23/20 21 06/23/2021 urina lysis , dipst ick Nitrite neg Not Available [place] [address], [place], [address], 06/23/2021 16:16:22 06/23/20 21 06/23/2021 urina lysis , dipst ick Urobilinogen 0.2 Not Available Ce orellana [address], [place], [address], 06/23/2021 16:16:22 06/23/20 21 06/23/2021 urina lysis , dipst ick Protein neg Not Available [place] [address], [place], [address], 06/23/2021 16:16:22 06/23/20 21 06/23/2021 urina lysis , dipst ick pH 5 Not Available [place] [address], [place], [address], 06/23/2021 16:16:22 06/23/20 21 06/23/2021 urina lysis , dipst ick Specific [place] 1.020 Not Available Dhiraj hernandez [address], [place], [address], 06/23/2021 16:16:22 06/23/20 21 06/23/2021 urina lysis , dipst ick Ketone neg Not Available [place] [address], [place], [address], 06/23/2021 16:16:22 06/23/20 21 06/23/2021 urina lysis , dipst ick Bilirubin neg Not Available Domingo woody [address], [place], [address], 06/23/2021 16:16:22 06/23/20 21 06/23/2021 urina lysis , dipst ick Glucose neg Not Available [place] [address], [place], [address], 06/23/2021 16:16:22 06/23/20 21 06/23/2021 urina lysis , dipst ick Appearance clear Not Available Starla yadav [address], [place], [address], 06/23/2021 16:16:22 06/23/20 21 06/23/2021 urina lysis , dipst ick Color straw Not Available [place] [address], [place], [address], 06/23/2021 16:16:22 06/24/20 21 06/24/2021 CULTU RE: URINE result report SEE RESULT S BELOW Test: Cultu re: Urine Speci men Sourc e: Urine Voide d Speci men Type: Urine Speci men Date: 06/24 12:12 PM Resul t Date: 06/25 9:55 PM Resul t Statu s: Final resul t Abnor mal: No Resul ting Lab: [facility] [address] [facility] [address] [facility] [address] Tel: CULTU RE ----- ----- ----- --- No growt h in 1 day (dete ction level of 10,00 0 colon ies / ml.) Not Available [facility] (Lab) [address], [place], [address], 06/25/2021 22:58:30 06/24/20 21 06/24/2021 IMAGE GUIDE D PAP AND HPV REGAR DLESS image guided Pap, HPV regardless of Pap result SEE RESULT S BELOW CASE REPOR T: Cytol ogy Gynec ologi tommy Repor t Case: [id number] Autho naty lim Provi swapnil: Braxton Sena Colle cted: 06/24 1352 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 Elect ruby miller alise d by Jonny Mobley on 07/06 at 3:36 PM ----- ----- ----- ----- ----- ----- ----- ----- ----- ----- ----- ----- ----- ----- ----- ----- ----- ---- HPV RESUL TS: HPV mRNA E6/E7 : No HPV mRNA Detec tangela NOTE: This high risk HPV mRNA assay detec ts fourt een high- risk HPV types (16, 18, 31, 33, 35, 39, 45, 51, 52, 56, 58, 59, 66, 68) witho ut diffe renti ation . COMME NT: Note: This speci men was revie wed by a Cytot echno logis t and/o r Patho logis t (as indic ated in this repor t) after evalu ation using the Thinp rep Imagi ng Syste m. CLINI TOMMY INFOR MATIO N: Menst rual Statu s: LMP (if appli cable ): Clini tommy Histo ry/Pr eviou s Pap: Type of Neopl piero (if appli cable ): Signi fican t Clini tommy Findi ngs: Other Histo ry: Hormo gregory (if appli cable ): PAP EDUCA SOMMER L NOTE: The Pap Test is a scree michaela test with an inher ent false negat aris rate. Liqui d-bas e sampl ing may decre ase, but will not elimi antoinette, false negat aris resul ts. A negat aris resul t does not precl ude the prese nce and/o r devel opmen t of disea se, since the prese nce of abnor mal cells in the sampl e depen ds on the locat ion of the lesio n and sampl ing techn ique. Alondra nued regul ar scree michaela is the best metho d of cance r preve ntion . If repor tangela cytol ogic findi ng do not corre late with physi tommy and/o r histo rical findi ngs, furth er inves tigat ion is recom ina d, as clini kamila barrera nted. Not Available [facility] (Lab) [address], [place], [address], 07/06/2021 16:40:25 06/24/20 21 06/24/2021 TRICH OMONA S VAGIN BRENDA (RRNA ) trichomonas vaginalis ribosomal RNA (rrna) Negati ve negati ve Not Available [facility] (Lab) [address], [place], [address], 07/06/2021 16:40:25 06/24/20 21 06/24/2021 CT/GC (DENIA) , THINP REP VIAL chlamydia trachomatis, PCR Negati ve negati ve Not Available [facility] (Lab) [address], [place], [address], 07/06/2021 16:40:26 06/24/20 21 06/24/2021 CT/GC (DENIA) , THINP REP VIAL neisseria gonorrhoeae, PCR Negati ve negati ve Not Available [facility] (Lab) [address], [place], [address], 07/06/2021 16:40:26 06/28/20 22 06/28/2022 IMAGE GUIDE D PAP AND HPV REGAR DLESS image guided Pap, HPV regardless of Pap result SEE RESULT S BELOW CASE REPOR T: Cytol ogy Gynec ologi tommy Repor t Case: [id number] Autho naty carina Provi swapnil: Braxton Sena Colle cted: 06/28 1734 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 Funga l organ isms morph ologi kamila consi stent with Alka da spp. Elect ruby miller alise d by Lucas Toth, CT on 06/30 at 11:07 AM ----- ----- ----- ----- ----- ----- ----- ----- ----- ----- ----- ----- ----- ----- ----- ----- ----- ---- HPV RESUL TS: HPV mRNA E6/E7 : No HPV mRNA Detec tangela NOTE: This high risk HPV mRNA assay detec ts fourt een high- risk HPV types (16, 18, 31, 33, 35, 39, 45, 51, 52, 56, 58, 59, 66, 68) witho ut diffe renti ation . COMME NT: Note: This speci men was revie wed by a Cytot echno logis t and/o r Patho logis t (as indic ated in this repor t) after evalu ation using the Thinp rep Imagi ng Syste m. CLINI TOMMY INFOR MATIO N: Menst rual Statu s: LMP (if appli cable ): Clini tommy Histo ry/Pr eviou s Pap: Type of Neopl piero (if appli cable ): Signi fican t Clini tommy Findi ngs: Other Histo ry: Hormo gregory (if appli cable ): PAP EDUCA SOMMER L NOTE: The Pap Test is a scree michaela test with an inher ent false negat aris rate. Liqui d-bas ed sampl ing may decre ase, but will not elimi antoinette, false negat aris resul ts. A negat aris resul t does not precl ude the prese nce and/o r devel opmen t of disea se, since the prese nce of abnor mal cells in the sampl e depen ds on the locat ion of the lesio n and sampl ing techn ique. Alondra nued regul ar scree michaela is the best metho d of cance r preve ntion . If repor tangela cytol ogic findi ng do not corre late with physi tommy and/o r histo rical findi ngs, fur er inves tigat ion is recom ina d, as clini kamila barrera nted. Not Available [facility] (Lab) [address], [place], [address], 06/30/2022 12:11:16 Result Notes Documentation Provider Name and Address Organization Details Recorded Time Pap, Ig + Hr Hpv : ok to file neg no pp la,rma Dawna Car, [facility]- [address], [place], [address], [place] [facility] 07/11/2021 20:06:51 Problems Name Problem SNOMED Code Status Onset Date Resolution Date Notes Provider Name and Address Organization Details Recorded Time Human papillom avirus deoxyrib onucleic acid detected , high risk on cervical specimen 540726790 Completed 201606/22/2021 Cervical high risk HPV DNA test positive ;Practic e ID: [address] [facility] 14:40:11 Acute vaginiti s [id number] Completed 201606/22/2021 Acute vaginiti s;Practi ce ID: [address] [facility] 14:39:08 Syphilis test finding [id number] Completed 201606/22/2021 Encntr screen for infectio ns w sexl mode of transmis s;Practi ce ID: [address] [facility] 14:40:42 Infectio n screenin g Completed 201606/22/2021 Encounte r for screenin g for oth infec/pa rastc diseases ;Practic e ID: [address] [facility] 14:40:13 Pregnanc y test negative [id number] Completed 201606/22/2021 Encounte r for pregnanc y test, result negative ;Practic e ID: [address] [facility] 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 14:40:37 Pelvic and perineal pain [id number] Completed 201606/22/2021 Pelvic and perineal pain;Pra ctice ID: [address] [facility] 14:40:22 Lesion of ovary Completed 201606/22/2021 Other ovarian cyst, right side;Pra ctice ID: [address] [facility] 14:40:03 Low grade squamous intraepi thelial lesion on vaginal Papanico laou smear [id number] 9105 Completed 201606/22/2021 Low grade intrepit h lesion cyto smr vagn (LGSIL); Practice ID: [address] [facility] 14:40:18 Herpes simplex [id number] Completed 201606/22/2021 Herpesvi ral infectio n, unspecif ied;Prac chandrakant ID: [address] [facility] 14:40:09 Low grade squamous intraepi thelial lesion on cervical Papanico laou smear [id number] 105 Completed 201706/22/2021 Low grade intrepit h lesion cyto smr crvx (LGSIL); Practice ID: [address] [facility] 14:40:17 Surveill ance of contrace ption Completed 201706/22/2021 Encounte r for surveill ance of contrace ptives, unspecif ied;Prac chandrakant ID: [address] [facility] 14:40:40 Condylom a acuminat um of the anogenit al region [id number] Completed 201406/22/2021 Condylom a acuminat um;Recor ded Elsewher e: No Locat ion: [facility] S ource: EHR Molding Cutter jessi: N Practi ce ID: 0001 Diomedes lable Time: 03:30:00 PM [facility] 14:39:14 Primigra florence [id number] Completed 201406/22/2021 Supervis ion of normal first pregnanc y;Record ed Elsewher e: No Locat ion: [facility] S ource: EHR Molding Cutter jessi: N Practi ce ID: 0001 Diomedes lable Time: 02:00:00 PM [facility] 14:40:32 Speciali zed medical examinat ion Completed 201306/22/2021 Routine gynecolo gical examinat ion;Prac chandrakant ID: [address] [facility] 14:40:38 Pregnanc y test positive [id number] Completed 201306/22/2021 Positive Pregnanc y Test;Pra ctice ID: 0001 Ashley Scott [facility], [facility] 14:40:30 Antenata l screenin g Completed 201306/22/2021 ANTENATA L SCREENIN G NEC;Prac chandrakant ID: 0001 Ashley arciniega [facility] 14:39:10 Ultrason ography Completed 201306/22/2021 Antenata l screenin g for malforma tion using ultrason ics;Prac chandrakant ID: 0001 Ashley arciniega [facility] 14:40:43 Congenit al malforma tion [id number] Completed 201306/22/2021 Antenata l screenin g for malforma tion using ultrason ics;Prac chandrakant ID: [address] [facility] 14:39:16 anatomy study Completed 201406/22/2021 [facility] ANATMC SURVEY;P moisés ID: 0001 Ashley arciniega [facility] 14:40:06 Delivery normal [id number] Completed 201406/22/2021 Normal delivery ;Practic e ID: 0001 Ashley arciniega [facility] 14:40:00 Single live [id number] Completed 201406/22/2021 Mother with single liveborn ;Practic e ID: [address] [facility] 14:40:33 Inflamma tory disorder of breast 648562453 Completed 201406/22/2021 Inflamma tory disease of breast;P moisés ID: [address] [facility] 14:40:14 Postpart um care Completed 201406/22/2021 Postpart um care and examinat ion of lactatin g mother;P moisés ID: [address] [facility] 14:40:27 Depressi ve disorder [id number] Completed 201406/22/2021 DEPRESSI VE DISORDER NEC;Prac chandrakant ID: [address] [facility] 14:40:01 Mental disorder s during pregnanc y, childbir th and the puerperi um [id number] Completed 201406/22/2021 Mental disorder s of mother, complica ting pregnanc y, childbir th, or the puerperi um, unspecif ied as to episode of care;Pra ctice ID: [address] [facility] 14:40:19 Fissure of nipple [id number] Completed 201406/22/2021 Fissure of nipple;P ractice ID: 0001 Ashley arciniega, [facility] 14:40:08 Uses combined oral contrace ption [id number] Completed 201506/22/2021 Encounte r for initial prescrip tion of contrace ptive pills;Pr actice ID: [address] [facility] 14:39:13 Placenta previa without hemorrha ge - not delivere d [id number] Completed 201406/22/2021 Placenta previa without hemorrha ge, antepart um;Pract ice ID: [address] [facility] 14:40:25 Congenit al OR acquired abnormal ity of cervix affectin g pregnanc y Completed 201406/22/2021 Other congenit al or acquired abnormal ity of cervix, antepart um conditio n or complica tion;Pra ctice ID: [address] [facility] 14:39:17 Acute upper respirat ory infectio n [id number] Completed 201406/22/2021 Acute upper respirat ory infectio ns of unspecif ied site;Pra ctice ID: [address] [facility] 14:39:07 Antenata l ultrasou nd scan for slow growth [id number] Completed 201406/22/2021 Antenata l screenin g for growth retardat ion using ultrason ics;Prac chandrakant ID: [address] [facility] 14:39:[address] Concept Completed 201706/22/2021 Encntr for general adult medical exam w/o abnormal findings ;Recorde d Elsewher e: No Locat ion: Domingo woody [facility] S ource: EHR Molding Cutter jessi: N Practi ce ID: 0001 Diomedes lable Time: 03:29:00 PM Ashley Scott [facility] 14:40:35 Evaluati on finding Completed 201606/22/2021 Unsp abnormal cytolog findings in specmn from cervix uteri;Re corded Elsewher e: No Locat ion: [facility] S ource: EHR Molding Cutter jessi: N Practi ce ID: 0001 Diomedes lable Time: 03:00:00 PM [facility] 14:40:05 Cyst of ovary Completed 201606/22/2021 Unspecif ied ovarian cyst, unspecif ied side;Rec orded Elsewher e: No Locat ion: [facility] S ource: EHR Molding Cutter jessi: N Kenya ce ID: 0001 Diomedes lable Time: 08:24:28 AM Ashley Scott [facility] 14:39:19 Problem Notes None recorded. Procedures Surgical History Date Name Laterality Status Provider Name and Address Organization Details Recorded Time 06/24/20 21 Date of Last Pap Smear completed Flower Crocker [facility] 06/28/2022 14:38:34 06/14/20 21 Breast augmentation w/implt completed ABDIAZIZ Cohen- [address], [place], [address], [facility] 06/28/2022 14:45:25 03/21/20 17 Colposcopy completed [facility] 06/22/2021 17:24:23 Removal of adenoids completed [facility] 06/22/2021 17:26:54 cryosurgery completed [facility] 06/22/2021 17:27:05 Imaging Results None recorded. Procedure Notes None recorded. Medical Equipment None Reported. Allergies No known drug allergies Medications Name Sig Start Date Stop Date Status Note LastModified by Organization Details LastModified Time dicloxaci llin 500 mg capsule take 1 capsule by oral route every 6 hours 1 hour before a meal or 2 hours after a meal 12/07 completed Prescrib ed Elsewher e: No Locat ion: Domingo woody [facility] odify By: prashant Encounte r DateTime : 01/14/20 15 02:45:00 PM Not Available Not Available Not Available Plaquenil 200 mg tablet take 1 tablet by oral route every day 2016 active Prescrib ed Elsewher e: Yes Loca tion: Domingo woody [facility] odify By: prashant Brarte r DateTime : 12/08/19 17 01:00:00 PM Not Available Not Available Not Available Topamax 25 mg tablet take 2 tablet by oral route 2 times every day in the morning and evening 12/07 completed Prescrib ed Elsewher e: Yes Loca tion: Domingo woody [facility] odify By: prashant Encounte r DateTime : 05/06/20 14 11:00:00 AM Not Available Not Available Not Available azithromy nicole 250 mg tablet take 2 tablet by oral route every day for 1 day then 1 tablet (250 mg) by oral route once daily for 4 days 09/21 completed Prescrib ed Elsewher e: No Locat ion: Domingo woody [facility] odify By: lisa Rasheed er DateTime : 09/18/19 15 03:00:00 PM Not Available Not Available Not Available Adderall 5 mg tablet take 1 tablet by oral route 2 times every day before breakfas t and at noon 12/07 completed Prescrib ed Elsewher e: Yes Loca tion: Domingo [facility] odify By: prashant Brarte r DateTime : 05/06/20 14 11:00:00 AM Not Available Not Available Not Available Diflucan 150 mg tablet take 1 tablet by oral route once 2021 active Not Available Not Available Not Avai lable acyclovir 400 mg tablet TAKE 1 TABLET BY MOUTH EVERY 12 HOURS for suppress aris therapy. 2022 active Not Available Not Available Not Avai lable tramadol 50 mg tablet take 1 tablet by oral route every 6 hours as needed 12/07 completed Prescrib ed Elsewher e: No Locat ion: Domingo woody [facility] odify By: prashant Soares r DateTime : 01/14/20 15 02:45:00 PM Not Available Not Available Not Available Zoloft 50 mg tablet take 1 tablet by oral route every day 12/07 completed Prescrib ed Elsewher e: No Locat ion: Domingo woody [facility] odify By: prashant Brarte r DateTime : 01/31/20 15 01:00:00 PM Not Available Not Available Not Available Diflucan 100 mg tablet take 1 tablet by oral route twice daily x7 days 12/07 completed Prescrib ed Elsewher e: No Locat ion: Domingo woody [facility] odify By: prashant Soares r DateTime : 01/17/20 15 12:41:38 PM Not Available Not Available Not Available methylpre dnisolone 8 mg tablet take 1 tablet by oral route every day with food 06/22 completed Prescrib ed Elsewher e: Yes Loca tion: Domingo woody [facility] odify By: prashant Soares r DateTime : 12/08/19 17 01:00:00 PM Not Available Not Available Not Available Valtrex 1 gram tablet take 1 tablet by oral route every 24 hours 03/26 completed Prescrib ed Elsewher e: No Locat ion: Dhiraj annalise [facility] odify By: sherry yi DateTime : 09/13/19 19 01:14:57 PM Not Available Not Available Not Available Anusol-HC 25 mg rectal supposito ry insert 1 supposit ory by rectal route 2 times every day for 2 weeks 02/12 completed Prescrib ed Elsewher e: No Locat ion: Domingo [facility] odify By: lisa Rasheed er DateTime : 01/31/20 15 01:00:00 PM Not Available Not Available Not Available Zoloft 100 mg tablet TAKE 1 TABLET BY ORAL ROUTE EVERY DAY 12/07 completed Prescrib ed Elsewher e: No Locat ion: Domingo woody [facility] odify By: prashant Brarte r DateTime : 06/29/20 15 08:13:44 AM Not Available Not Available Not Available norethimark veras (contrace ptive) 0.35 mg tablet take 1 tablet by oral route every day 12/07 completed Prescrib ed Elsewher e: No Locat ion: Domingo woody [facility] odify By: prashant Encounte r DateTime : 01/31/20 15 01:00:00 PM Not Available Not Available Not Available 07/29 (28) 1 mg-20 mcg (21)/75 mg (7) tablet take 1 tablet by oral route every day 12/07 completed Prescrib ed Elsewher e: No Locat ion: Domingo woody [facility] odify By: prashant Soares r DateTime : 10/23/19 16 09:15:00 AM Not Available Not Available Not Available Cymbalta 20 mg capsule,d elayed release Take 1 capsule every day by oral route. active Not Available Not Available No t Available Complete 14 mg iron-400 mcg tablet take one tablet daily 12/07 completed Prescrib ed Elsewher e: No Locat ion: Domingo woody [facility] odify By: prashant Brarte r DateTime : 07/30/19 15 03:30:00 PM Not Available Not Available Not Available Orencia 125 mg/mL subcutane ous syringe inject 1 millilit er by subcutan eous route every week 06/23 completed Prescrib ed Elsewher e: Yes Loca tion: Domingo woody [facility] odify By: prashant Brarte r DateTime : 12/08/19 17 01:00:00 PM Not Available Not Available Not Available Anusol-HC 2.5 % topical cream with perineal applicato r apply by topical route 2 times every day to the affected area(s) for 2 weeks 12/07 completed Prescrib ed Elsewher e: No Locat ion: Domingo woody [facility] odify By: prashant lynch DateTime : 01/31/20 01:00:00 PM Not Available Not Available Not Available Xatmep 2.5 mg/mL oral solution 06/23 completed Prescrib darien woody: Yes [facility]: katiuska lynch DateTime : 03/19/20 10:00:00 AM Not Available Not Available Not Available Vitals Date Recorded Body height Body mass index (BMI) Body weight Systolic blood pressure Diastolic blood pressure Provider Name and Address Organization Details Last Updated DateTime 06/23/2021 165.74 cm 22.5 kg/m2 04387.56 g 107 mm[Hg] 62 mm[Hg] Ashley Scott [facility] 12:50:51 Date Recorded Body height Body mass index (BMI) Body weight Systolic blood pressure Diastolic blood pressure Provider Name and Address Organization Details Last Updated DateTime 06/28/2022 165.74 cm 23.2 kg/m2 06203.65 g 120 mm[Hg] 70 mm[Hg] Flower Crocker [facility] 2 14:38:21 Social History Question Answer Notes LastModified by Organizat ion Details LastModified Time Tobacco Smoking Status Former Smoker Ashley [facility] 06/22/2021 17:18:40 What Is Your Level Of Alcohol Consumption? Occasional Information not available 06/22/2021 Are You Blind Or Do You Have Difficulty Seeing? No Information not available 06/22/2021 What Is Your Level Of Caffeine Consumption? Occasional Information not available 06/22/2021 Are You Deaf Or Do You Have Serious Difficulty Hearing? No Information not available 06/22/2021 What Type Of Diet Are You Following? REGULAR Information not available 06/22/2021 Do You Use Your Seat Belt Or Car Seat Routinely? Yes Information not available 06/22/2021 Are You Sexually Active? Yes Information not available 06/22/2021 Do You Have Smoke And Carbon Monoxide Detectors In Your Home? Yes Information not available 06/22/2021 Do You Feel Stressed (tense, Restless, Nervous, Or Anxious, Or Unable To Sleep At Night)? [id number] Information not available 06/22/2021 Do You Use Any Illicit Or Recreational Drugs? No Information not available 06/22/2021 Do You Use Sunscreen Routinely? Yes Information not available 06/22/2021 Sex: Unknown Functional Status Question Answer Note LastModified by Organizat ion Details LastModified Time Do you have difficulty walking or climbing stairs? No Information not available 06/28/2022 Are you able to walk? YESWOREST Information not available 06/22/2021 Are you able to care for yourself? Yes Information not available 06/28/2022 Do you have difficulty dressing or bathing? No Information not available 06/28/2022 What is your exercise level? Occasional Information not available 06/22/2021 Mental Status None recorded. Family History Relationship Description Onset Age of this Age Resolved Age Notes LastModified by Organization Details LastModified Time Father Malignant tumor of colon Not available 2020 17:15:51 Maternal Grandfather Blood coagulation disorder Not available 2020 17:16:00 Maternal Grandfather Heart disease Not available 2020 17:16:13 Maternal Grandmother Malignant tumor of breast Not available 2020 17:16:56 Maternal Grandmother Blood coagulation disorder Not available 2020 17:17:06 Maternal Grandmother Diabetes mellitus Not available 2020 17:17:34 Mother Blood coagulation disorder Not available 2020 17:17:51 Mother Malignant tumor of breast Not available 2020 17:17:58 Medical History Condition Response Allergies (Food, seasonal, environmental ) N Other N Breast Cancer N Drug/Latex Allergies/Reactions N Blood Transfusion N Dermatologic Disorders N Lung Disease N Defects or Inherited Disease N Breast Problem N Gestational Diabetes N Hematologic disorders N Anesthesia Complications N History of STI N Deep Vein Thrombosis N Polycystic ovary syndrome N Anxiety Disorder N Autoimmune disease N Arthritis N Infertility N Polyps N Acid Reflux (GERD) N History of abnormal pap N Cancer N Stroke N Varicosities N Neurologic/Epilepsy N Endometriosis N High Cholesterol N Headaches N Fibromyalgia N Kidney Disease N Heart Problems N Kidney or Bladder Problems N Thyroid Problems N GI Problems N Eating Disorder N Anemia N Art (IVF or FET) N Psychiatric Illness N Ovarian Cancer N Diabetes N Pulmonary (TB, Asthma) N Hepatitis/Liver Disease N No Past Medical History N Eczema N Urinary Tract Infection N Abuse/Domestic Violence N Asthma N Trauma/Violence N Depression/ depression N Heart Disease N Pre-Eclampsia N Hypertension N Osteoporosis N Thrombophilias N Gynecological History Statement/Question Response Abnormal Pap Y Flow Moderate Date of LMP 06/15/2022 Was last menstrual period normal N STIs/STDs Y HPV Vaccine Y Colposcopy 03/21/2017 Duration of Flow (days) 6 Current Control Method None Are cycles usually normal N Sexually Active? Y Menses Monthly Y Age of first menstrual cycle 13 Date of Last Pap Smear 06/24/2021 Sexual Problems? Y LMP Approximate Obstetrics History GPAL:G 2 P 0 0 1 1 Type Value Induced 1 Living 1 Total 2 Past Encounters Encounter ID Performer Location Encounter Start Date Encounter Closed Date Diagnosis/Indication Diagnosis SNOMED-CT Code Diagnosis ICD10 Code Diagnosis Note [id number] Dawna Car [facility] [address] [address] 06/23/2021 12:37:33 06/23/2021 13:45:22 Gynecologic examination 62967467 Z01.419 Take Calcium with Vitamin D 1200mg daily if not receiving in daily diet. It is strongly advised to have an annual flu shot and up can obtain at most pharmacies . If you have not had a TDap shot in the last 10 years you should obtain one as well. Discussed with patient & provided with informatio n regarding Gardisil vaccine to prevent the 4 strains for HPV that cause cervical cancer if under age 26. Encourage safe sexual practices, to use condoms and limit partners if not already in a monogamous relationsh ip. Do monthly self breast exams. Have mammogram yearly or every other year depending on family history. BRCA testing is now available for patients with strong genetic history of female cancer. If interested contact the office. Engage in daily exercise of low impact aerobic exercise 45-60 minutes 4-5 times weekly. Avoid tobacco and illicit drugs as well as using moderation with alcohol intake less than 1-2 8 oz beverages daily. This lifestyle behavior pattern will lead to less health conditions and longer life span. If BMI greater than 25 weight watchers or dietary consult advised. Patient received above instructio ns, and questions have been answered. If you have any questions please call or respond to this email. Patient was made aware of the patient portal and may obtain a paper copy of today's plan if desired. Pap/hpv sentSTD sentMammo n/aGenetic screen discussedE ngaged Urinary incontinence 165 [id number] R32 Urine sample takenWill call with resultsRef erral sent [id number] [facility] [address] [address] 06/28/2022 14:26:19 06/28/2022 15:55:20 Gynecologic examination [id number] Z01.419 Z11.51 Z11.3 Z11.8 Take Calcium with Vitamin D 1200mg daily if not receiving in daily diet. It is strongly advised to have an annual flu shot and up can obtain at most pharmacies . If you have not had a TDap shot in the last 10 years you should obtain one as well. Discussed with patient & provided with informatio n regarding Gardisil vaccine to prevent the 4 strains for HPV that cause cervical cancer if under age 26. Encourage safe sexual practices, to use condoms and limit partners if not already in a monogamous relationsh ip. Do monthly self breast exams. Have mammogram yearly or every other year depending on family history. BRCA testing is now available for patients with strong genetic history of female cancer. If interested contact the office. Engage in daily exercise of low impact aerobic exercise 45-60 minutes 4-5 times weekly. Avoid tobacco and illicit drugs as well as using moderation with alcohol intake less than 1-2 8 oz beverages daily. This lifestyle behavior pattern will lead to less health conditions and longer life span. If BMI greater than 25 weight watchers or dietary consult advised. Patient received above instructio ns, and questions have been answered. If you have any questions please call or respond to this email. Patient was made aware of the patient portal and may obtain a paper copy of today's plan if desired. Pap/hpv sentSTD Screen declinedGe netic Screen discussedC christie Screen naDexa Screen naRoutine Labs PCPMammo discussed family history will start at age 40yo since mother was >55yo and neg BRCA genetic testing. External hemorrhoids [id number] 39453 K64.4 Requests referral for one ext hemorrhoid present on exam that is very painful when flared up which can be often. Wishes to discuss other options other than OTC that are available. Health Concerns Section Related Observation LastModified by Organization Detai ls LastModified Time None Recorded Concern Status LastModified by Organization Details LastModified Time None Recorded Advance Directives Directive None Recorded Payers Encounter Date Sequence Insurance Name Policy Number Policy Marina Covered Member ID Marina Member ID Guarantor Name 06/23/2021 1 [employer] (MEDICARE REPLACEMENT/A DVANTAGE - PPO) Min Bucio [id number] D Cecilia Bucio 06/23/2021 2 [place] Min Bucio [id number] D Cecilia Bucio 06/28/2022 1 [employer] (MEDICARE REPLACEMENT/A DVANTAGE - PPO) Min Bucio [id number] Raine Bcuio 06/28/2022 2 [place] [facility] Min Bucio [id number] D Cecilia Bucio Notes Date Note Type Note Provider Name and Address Organization Details Recorded Time 06/23/2021 text/html Annual GYNReport ed bypatient.Menstrua l cycle:Normal menses Urinary symptoms:No hematuria;Stress incontinence;Urge incontinence Vulva:No genital lesion Vagina:Normal vaginal discharge Breast:No breast pain; No breast lump; No nipple discharge Current Contraception:Sati sfied with current contraception; Monogamous relationship; Withdrawal method Sexual complaints:No sexual complaints; No pain during intercourse; Normal libido Menopausal Symptoms:No menopausal symptoms; Normal vaginal lubrication Psychological symptoms:No depression; No anxiety; No PMDD Preventive measures:Encourage self breast examination; Encourage regular exercise; Encourage no tobacco use; Encourage regular mammograms starting age 40; Followed with Q3 year pap smear and high risk HPV typing; History of abnormal pap smear/cervical dysplasia Dawna Car, [facility] [address], [place], [address], [facility] 06/23/2021 13:44:02 06/28/2022 text/html Annual GYNReport ed bypatient.History: no gynecologic complaints Menstrual cycle:Normal menses Urinary symptoms:No hematuria; No incontinence Vulva:No genital lesion Vagina:Normal vaginal discharge Breast:No breast pain; No breast lump; No nipple discharge Current Contraception:Nathalia h control not practiced Sexual complaints:No sexual complaints; No pain during intercourse; Normal libido Menopausal Symptoms:No menopausal symptoms; Normal vaginal lubrication Psychological symptoms:No depression; No anxiety; No PMDD Preventive measures:Encourage self breast examination; Encourage regular exercise; Encourage no tobacco use; Encourage regular mammograms starting age 40; Followed with yearly pap smears; History of abnormal pap smear/cervical dysplasia Dawna Car, [facility] [address], [place], [address], [facility] 06/28/2022 14:54:22 OBGyn Episode Ob Episode Information Episode Created Date Number of Fetuses Patient Bloodtype Patient rh Status Prepregnancy Weight lbs Domestic Partner Domestic Partner Phone Father Name [employer]isher Status 06/22/20 21 1 CLOSED Fetus Data First Name Last Name Admitted to NICU Weight (g) Sex Living Outcome Pediatric Complications Fetus ID Race Codes Race Delivery Type 3288.54 2 F Full Term [id number] Vaginal Delivery Seven Calculation Initial Seven Date Initial Exam Date Initial Exam Provider Initial Ultrasound Date Last Menstrual Period Date Ultra Sound Weeks Gestation 0 Eighteen To Twenty Week Seven Update Ultra Sound Date Fundal Height At Umbil Quickening Date Ultra Sound Latest Weeks Gestation Final Seven Confirmed By Final Seven Confirmed Date Final Seven Date Ultra Sound Latest Days Gestation 0 0 Menstrual History Last Menstrual Date Menses Monthly On Bcp Conception Prior Menses Frequency Hcg Plus Date Menarche Onset Age Delivery Information Delivery Date Delivery Type Labor Anesthesia Weeks Gestation Incision Type Labor Labor Length Hrs Delivered By Post Complications Tubal Sterilization Discharge Date Comments 5 40 Discharge Information Feeding Method Contraceptive Method Maternal HG B and HCT Levels Ob Episode Information Episode Created Date Number of Fetuses Patient Bloodtype Patient rh Status Prepregnancy Weight lbs Domestic Partner Domestic Partner Phone Father Name [employer] Polisher Status 06/22/20 21 1 CLOSED Fetus Data First Name Last Name Admitted to NICU Weight (g) Sex Living Outcome Pediatric Complications Fetus ID Race Codes Race Delivery Type , Induced [id number] Calculation Initial Seven Date Initial Exam Date Initial Exam Provider Initial Ultrasound Date Last Menstrual Period Date Ultra Sound Weeks Gestation 0 Eighteen To Twenty Week Seven Update Ultra Sound Date Fundal Height At Umbil Quickening Date Ultra Sound Latest Weeks Gestation Final Seven Confirmed By Final Seven Confirmed Date Final Seven Date Ultra Sound Latest Days Gestation 0 0 Menstrual History Last Menstrual Date Menses Monthly On Bcp Conception Prior Menses Frequency Hcg Plus Date Menarche Onset Age Delivery Information Delivery Date Delivery Type Labor Anesthesia Weeks Gestation Incision Type Labor Labor Length Hrs Delivered By Post Complications Tubal Sterilization Discharge Date Comments 5 Discharge Information Feeding Method Contraceptive Method Maternal HG B and HCT Levels
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
--- OUTSIDE RECORDS SUMMARY | 2024-08-16 11:19 | XMS_ITS | Encounter Summary ---
Author Organization [employer] Address [address] [place] [address] Care Team Providers Care Boiler/Chiller Operator Name Role Phone Isaac Verdugo MD Primary Care Provider [phone] Encounter Details Date Type Department Care Team (Late st Contact Info) Description 07/06/2007 Outpatient Historical [facility] Er, Authorized P NO ADDRESS ON FILE Jama Mccarthy, DO [address] [facility] [address] [place] [address] Nondependent Alcohol Abuse, Unspecified Drunkenness Social History Tobacco Use Types Packs/Day Years Used Date Smoking Tobacco: Never Assessed Comments Unknown Sex and Gender Information Value Date Recorded Sex Assigned at Not on file Legal Sex Female 3:53 AM BAKER PIE Gender Identity Not on file Sexual Orientation Not on file documented as of this encounter Plan of Treatment Not on file documented as of this encounter Procedures Procedure Name Priority Date/Time Associated Diagnosis Comments DRUG SCREEN, URINE Routine 07/06/2007 10 :15 PM BAKER PIE URINALYSIS W/REFLEX MICROSCOPIC Routine 07/06/2007 10:15 PM BAKER PIE ETHANOL LEVEL Routine 07/06/2007 10:15 PM BAKER PIE POC , URINE Routine 07/06/2007 10:00 PM BAKER PIE POC URINALYSIS DIPSTICK NON AUTOMATED Routine 07/06/2007 10:00 PM BAKER PIE documented in this encounter Results * DRUG SCREEN, URINE (07/06/2007 10:15 PM BAKER PIE) COMMENT, TOXICOLOGY See Separate Comment INTERFACE SYSTEM Comment: Urine sample was not handled as a legal specimen and was received without a chain of custody. The result should be used only for medical purposes. False positive and erroneous results can occur due to cross-reacting sub stances and other factors. Depending on the clinical context, confirmation of all presumptive positive results by a more specific alternate method is recommended. A negative result indicates the analyte, if present, is below the screening threshold. Drug Ref. Range Screening Threshold Amphetamines Negative 1000 ng/mL Barbituates Negative 200 ng/mL Benzodiazepines Negative 300 ng/mL Cannabinoids Negative 50 ng/mL Cocaine Metabolites Negative 300 ng/mL Opiates Negative 300 ng/mL Phencycldine Negative 25 ng/mL The cut-off threshold, known cross-reactive compounds, drugs,and specificity information for each of the urine drugs of abuse are available on the [facility] [employer] enrich-inet at: [email or web address] Select: Drugs of Abuse ? [facility] To inquire about any potential cross-reactivity of a specific drug not listed at this site, please contact the Chemistry Lab at . AMPHETAMINE QUAL, URINE Negative Negative INTERFACE SYSTEM BARBITURATE QUAL, URINE Negative Negative INTERFACE SYSTEM BENZODIAZEPINE QUAL, URINE Negative Negative INTERFACE SYSTEM CANNABINOIDS QUAL, URINE Negative Negative INTERFACE SYSTEM COCAINE QUAL URINE Negative Negative I NTERFACE SYSTEM OPIATE QUAL, URINE Negative Negative I NTERFACE SYSTEM PCP QUAL, URINE Negative Negative INTE RFACE SYSTEM 07/06/2007 10:1 5 PM BAKER PIE Jama Mccarthy DO URINE ORDERABLES Edited INTERFACE SYSTEM Refer to clinic/hospital department * URINALYSIS (07/06/2007 10:15 PM BAKER PIE) COLOR UA Colorless INTERFACE SYSTEM CLARITY UA Clear Clear INTERFACE SYSTEM SPECIFIC GRAVITY UA 1.003 1.001 - 1.035 INTERFACE SYSTEM PH UA 5.5 5.0 - 8.0 INTERFACE SYSTEM LEUKOCYTE ESTERASE UA Negative Negative INTERFACE SYSTEM NITRITE UA Negative Negative INTERFACE SYSTEM PROTEIN UA Negative Negative INTERFACE SYSTEM GLUCOSE UA Negative Negative INTERFACE SYSTEM KETONES UA Negative Negative INTERFACE SYSTEM UROBILINOGEN UA <1 <=1 mg/dL INTE RFACE SYSTEM BILIRUBIN UA Negative Negative INTERFA CE SYSTEM BLOOD UA Negative Negative INTERFACE SYSTEM 07/06/2007 10:1 5 PM BAKER PIE [facility] DO URINE ORDERABLES Edited Performing Organization Address [facility] Phone Number INTERFACE SYSTEM Refer to clinic/hospital department * (ABNORMAL) ETHANOL (07/06/2007 10:15 PM BAKER PIE) ETHANOL 301(AA) mg/dL INTERFACE SYSTEM Comment:Results called to [facility] at 07/06/07 10:59 PM and read back verified. 07/06/2007 10:1 5 PM BAKER PIE [facility] DO CHEMISTRY ORDERABLES Edited Performing Organization Address [facility] Phone Number INTERFACE SYSTEM Refer to clinic/hospital department * POC , URINE (07/06/2007 10:00 PM BAKER PIE) SPECIFIC GRAVITY UA 1.005 1.001 - 1.035 INTERFACE SYSTEM , URINE POC Negative Negative INTERFACE SYSTEM HCG QUAL URINE COMMENT See Below INTERFACE SYSTEM Comment:Urine resu lts may be falsely negative due to low specific gravity 07/06/2007 10:0 0 PM BAKER PIE Authorized P Er POINT OF CARE TESTING Edited Performing Organization Address [facility] Phone Number INTERFACE SYSTEM Refer to clinic/hospital department * POC URINALYSIS DIPSTICK (07/06/2007 10:00 PM BAKER PIE) COLOR UA Yellow INTERFACE SYSTEM CLARITY UA Clear INTERFACE SYSTEM SPECIFIC GRAVITY UA 1.005 1.001 - 1.030 INTERFACE SYSTEM PH UA 7.0 5.0 - 8.0 INTERFACE SYSTEM LEUKOCYTE ESTERASE UA Negative Negative INTERFACE SYSTEM NITRITE UA Negative Negative INTERFACE SYSTEM PROTEIN UA Negative Negative INTERFACE SYSTEM GLUCOSE UA Negative Negative INTERFACE SYSTEM KETONES UA Negative Negative INTERFACE SYSTEM UROBILINOGEN UA Normal Normal INTE RFACE SYSTEM BILIRUBIN UA Negative Negative INTERFA CE SYSTEM BLOOD UA Negative Negative INTERFACE SYSTEM COMMENT, URINE Test not chrgd/to repeat INTERFACE SYSTEM 07/06/2007 10:0 0 PM BAKER PIE us Authorized P Er POINT OF CARE TESTING Edited INTERFACE SYSTEM Refer to clinic/hospital department documented in this encounter Visit Diagnoses Diagnosis Alcohol abuse, unspecified documented in this encounter Care Teams Boiler/Chiller Operator Relationship Specialty Start Date End Date Isaac Verdugo MD PCP - General 07/18/08 09/10/19 documented as of this encounter
--- OUTSIDE RECORDS SUMMARY | 2024-08-16 11:19 | XMS_ITS | Encounter Summary ---
Author Organization [facility] Address [address] [place] [address] Care Team Providers Care Dryer Operator Name Role Phone Garcia Ng DO Primary Care Provider + Reason for Visit * Reason Onset Date Comments Lab Results 08/13/2024 Encounter Details Date Type Department Care Team (Late st Contact Info) Description 08/13/2024 Telephone [facility] Family & Internal Medicine [facility] [address] [place] [address] Garcia Ng DO [address] [place], [place] [id number] Lab Results Social History Tobacco Use Types Packs/Day Years Used Date Smoking Tobacco: Former Cigarettes 0.5 6 2 009 - 2014 Smokeless Tobacco: Never Alcohol Use Standard Drinks/Week Comments Not Currently 0 (1 standard drink = 0.6 oz pur e alcohol) PHQ-2 Answer Date Recorded Patient Health Questionnaire-2 Score 0 08/01/2024 Comments No Sex and Gender Information Value Date Recorded Sex Assigned at Female 08/01/2024 1:24 PM INFORMATION LEAD Legal Sex Female 7:28 PM CDT Gender Identity Not on file Sexual Orientation Not on file documented as of this encounter Progress Notes * Melody Pablo MA - 08/15/2024 4:32 PM CST Pt v/u of results. RMATION LEAD * Melody Pablo MA - 08/13/2024 10:06 AM CST Images from the original note were not included. LMOM to please call office for lab results. ----- Message from Ashley Valero sent at 08/09/2024 3:44 PM INFORMATION LEAD ----- PAP negative. Repeat in 3 years MARI Mejía Holly Nurse HPV is negative MARI Mejía Holly Nurse GC negative RMATION LEAD RMATION LEAD documented in this encounter Plan of Treatment Upcoming Encounters Date Type Department Care Team (Late st Contact Info) Description 09/12/2024 9:00 AM INFORMATION LEAD Office Visit [facility] Family & Internal Medicine [address] [phone] Garcia Ng DO [address] [place] [address] documented as of this encounter Visit Diagnoses Not on filedocumented in this encounter Additional Health Concerns Assessment Noted Time PHQ-9 Depression Total Score: 2 02/25/20 21 1:22 PM CDT documented as of this encounter Care Teams Dryer Operator Relationship Specialty Start Date End Date Garcia Ng DO [address] [place] [address] PCP - General FAMILY PRACTICE 05/13/22 documented as of this encounter
--- OUTSIDE RECORDS SUMMARY | 2024-08-16 11:19 | XMS_ITS | Encounter Summary ---
Author Organization [employer] Address [address] [place] [address] Care Team Providers Care Plastics Seasoner Operator Name Role Phone Isaac Verdugo MD Primary Care Provider [phone] Encounter Details Date Type Department Care Team (Latest Contact Info) Description 12/19/2008 Outpatient [facility] [address] [facility] [address] [address] [place] [address] Isaac Verdugo MD [address] [facility] [address] [place] [address] Unspecified Neuralgia, Neuritis, and Radiculitis Social History Tobacco Use Types Packs/Day Years Used Date Smoking Tobacco: Every Day Cigarettes Alcohol Use Standard Drinks/Week Comments No 0 (1 standard drink = 0.6 oz pur e alcohol) Comments No Sex and Gender Information Value Date Recorded Sex Assigned at Not on file Legal Sex Female 3:53 AM CUFF CUTTER Gender Identity Not on file Sexual Orientation Not on file documented as of this encounter Plan of Treatment Not on file documented as of this encounter Visit Diagnoses Diagnosis Neuralgia, neuritis, and radiculitis, unspecified documented in this encounter Care Teams Plastics Seasoner Operator Relationship Specialty Start Date End Date Isaac Verdugo MD PCP - General 07/18/08 09/10/19 documented as of this encounter
--- OUTSIDE RECORDS SUMMARY | 2024-08-16 11:19 | XMS_ITS | Clinical Summary ---
Author Organization [facility] Address [address] [place] [address] Care Team Providers Care Jewel Hole Driller Name Role Phone Garcia Ng Primary Care Provider + Allergies No known active allergies Medications albuterol sulfate HFA 108 (90 Base) MCG/ACT inhaler 2 puffs. 08/13/19 21 Active cholecalciferol 125 MCG (5000 UT) Tab Take 1 tablet (5,000 Units total) by mouth daily. Active cloNIDine 0.1 MG tablet Take 1 tablet (0.1 mg total) by mouth 3 (three) times daily. 02/18/20 21 Active vitamin B-12 1000 MCG tablet Take 1 tablet (1,000 mcg total) by mouth daily. Active cyclobenzaprine 10 MG tablet 02/24/20 21 Active hydroxychloroqui ne 200 MG tablet Take 1 tablet (200 mg total) by mouth daily. 02/11/20 21 Active NARCAN 4 MG/0.1ML nasal spray INSTILL INTRANASALLY ONCE DIRECTED 12/31/19 21 Active HYDROcodone-acet aminophen 10-325 MG tablet Take 1 tablet by mouth daily. Active Magnesium Malate Powder Take 200 mg by mouth 2 (two) times daily. Active DULoxetine (CYMBALTA) 20 MG capsule TAKE 1 CAPSULE BY MOUTH EVERY DAY DIRECTED 04/19/20 22 Active traZODone (DESYREL) 100 MG tablet Take 2 tablets (200 mg total) by mouth nightly as needed. 04/14/20 22 Active predniSONE (DELTASONE) 20 MG tablet TAKE 3 TABLETS BY MOUTH DAILY FOR 5 DAYS as needed 05/13/20 22 Active gabapentin (NEURONTIN) 300 MG capsule Take 1 capsule (300 mg total) by mouth 3 (three) times daily as needed. 90 capsule 05/13/20 22 Active ALPRAZolam (XANAX) 1 MG tablet Take 0.5 tablets (0.5 mg total) by mouth nightly as needed. Active valACYclovir (VALTREX) 1 g tabletIndication s:Herpes zoster without complication Take 1 tablet (1,000 mg total) by mouth 3 (three) times daily. 21 tablet 08/22/19 23 Active Additional Information Patient taking differently:1,000 mg OralDaily, Reported on 08/01/2024 pramipexole (MIRAPEX) 0.125 MG tabletIndication s:RLS (restless legs syndrome) Take 2 tablets (0.25 mg total) by mouth nightly at bedtime. 180 tablet 11/24/19 23 Active chlorhexidine (PERIDEX) 0.12 % solution SWISH AND SPIT 5 MLS BY MOUTH EVERY 12 HOURS DIRECTED 11/17/19 24 Active ciclopirox (PENLAC) 8 % solution APPLY TO NAIL DAILY 05/30/20 24 Active clindamycin (CLEOCIN T) 1 % lotion Apply to affected area on acne bumps daily. 30 day supply. 05/30/20 24 Active methylphenidate (RITALIN) 5 MG tablet Take 1 tablet (5 mg total) by mouth. 08/01/19 25 Active MOVANTIK 25 MG tablet TAKE 1 TABLET BY MOUTH EVERY DAY EITHER 2 HOURS PRIOR TO FIRST MEAL OF THE DAY OR 1 HOUR AFTER 11/14/19 24 Active tretinoin (RETIN-A) 0.1 % cream Pea sized amount to entire face at night. 30 days supply. 05/30/20 24 Active clotrimazole-bet amethasone cream APPLY TOPICALLY TO THE AFFECTED AND SURROUNDING AREAS TWICE DAILY IN THE MORNING AND IN THE EVENING FOR 2 WEEKS 12/16/19 21 025 Discontin ued(Arelia py completed ) Zinc 30 MG Tab Take 30 mg by mouth daily. 025 Discontin ued(Radha py completed ) Active Problems Problem Noted Date Diagnosed Date Fibromyalgia 08/07/2020 Overview (05/13/2022): Last Assessment & Plan: Stable, taking meds as directed. Does have occasional flares Raynaud's disease without gangrene 08/07/2020 Overview (05/13/2022): Last Assessment & Plan: Stable, no meds Extrinsic asthma without complication ([facility]) 08/07/2020 Overview (05/13/2022): Last Assessment & Plan: Hortencia, only has to use albuterol as needed Generalized anxiety disorder 08/07/2020 Overview (05/13/2022): Dr Botello Last Assessment & Plan: Hortencia, followed by Psychiatry Herpes simplex 08/07/2020 Overview (05/13/2022): Last Assessment & Plan: Hortencia, takes daily preventative meds Vitamin D deficiency 08/07/2020 Overview (05/13/2022): Last Assessment & Plan: Continue vitamin-D Seronegative rheumatoid arthritis ([facility]) 07/19/2016 Overview (05/13/2022): Rheumatology: Dr. Carpio Last Assessment & Plan: Followed by Rheumatology Lupus erythematosus 03/29/2016 Overview (05/13/2022): Last Assessment & Plan: Hortencia, patient taking meds. Followed by Rheumatology Insomnia 11/26/2009 Attention deficit hyperactivity disorder (ADHD) 08/24/2008 Overview (05/13/2022): Last Assessment & Plan: Hortencia, not on meds. Followed by Psychiatry Current mild episode of ramu r depressive disorder without prior episode 08/24/2008 Overview (05/13/2022): Last Assessment & Plan: Hortencia, followed by Psychiatry Migraine 08/24/2008 Overview (05/13/2022): Last Assessment & Plan: Hortencia p.r.nMiquel meds Encounters Date Type Department Care Team Description 08/13/2024 Telephone [facility] Family & Internal [address] [address] Garcia Ng, DO Lab Results 08/01/2024 1:20 PM HORTICULTURAL SPECIALTY GROWER Office Visit [facility] Family & Internal [address] [address] Leroy Valero APNP Police Lieutenant Patrol Exam 08/01/2024 11:39 AM HORTICULTURAL SPECIALTY GROWER - 08/01/2024 11:59 PM HORTICULTURAL SPECIALTY GROWER Hospital Encounter [facility] [address] [place] [address] Leroy Valero APNP Discharge Disposition: Home or Self Care (Routine Discharge) 08/01/2024 - 08/01/2024 11:38 AM HORTICULTURAL SPECIALTY GROWER Hospital Encounter [facility] [address] [place] [address] Leroy Valero APNP Discharge Disposition: Home or Self Care (Routine Discharge) 08/01/2024 Travel 07/24/2024 Scan [facility] Scanned, [facility] 06/19/2024 [facility] Scanned, [facility] 05/22/2024 Scan [facility] Scanned, [facility] from Last 3 Months Immunizations Name Administration Dates Next Due Hepatitis A (Havrix [address]) 02/26/2009 Tdap (Generic) 10/09/2015 Family History Medical History Relation Comments Breast Cancer Maternal Grandmother Breast Cancer Mother Relation Status Comments Maternal Grandmother Mother Social History Tobacco Use Types Packs/Day Years Used Date Smoking Tobacco: Former Cigarettes 0.5 6 2 009 - 2015 Smokeless Tobacco: Never Tobacco Cessation:Counseling Given: Yes Alcohol Use Standard Drinks/Week Comments Not Currently 0 (1 standard drink = 0.6 oz pur e alcohol) PHQ-2 Answer Date Recorded Patient Health Questionnaire-2 Score 0 08/01/2024 Comments No Sex and Gender Information Value Date Recorded Sex Assigned at Female 08/01/2024 1:24 PM HORTICULTURAL SPECIALTY GROWER Legal Sex Female 7:28 PM CDT Gender Identity Not on file Sexual Orientation Not on file Last Filed Vital Signs Vital Sign Reading Time Taken Comments Blood Pressure 116/64 08/01/2024 1:24 PM HORTICULTURAL SPECIALTY GROWER Pulse 91 08/01/2024 1:24 PM HORTICULTURAL SPECIALTY GROWER Temperature 36.8 C (98.2 F) 08/01/2024 1:24 PM HORTICULTURAL SPECIALTY GROWER Respiratory Rate 16 08/01/2024 1:24 PM HORTICULTURAL SPECIALTY GROWER Oxygen Saturation 96% 08/01/2024 1:24 PM HORTICULTURAL SPECIALTY GROWER Inhaled Oxygen Concentration - - Weight 66.8 kg (147 lb 3.2 oz) 08/01/2024 1:24 P M HORTICULTURAL SPECIALTY GROWER Height 166.4 cm (5' 5.5 ) 08/01/2024 1:24 PM HORTICULTURAL SPECIALTY GROWER Body Mass Index 24.12 08/01/2024 1:24 PM HORTICULTURAL SPECIALTY GROWER Plan of Treatment Upcoming Encounters Date Type Department Care Team (Late st Contact Info) Description 09/12/2024 9:00 AM HORTICULTURAL SPECIALTY GROWER Office Visit [facility] Family & Internal Medicine [address] [phone] Garcia Ng, [address] [place] [address] Health Maintenance Due Date Last Done Comments Annual Physical 10/30/1987 Pneumococcal Vaccine: Pediatrics (0 to 5 Years) and At-Risk Patients (6 to 64 Years) (1 of 2 - PCV) 1990 Hepatitis B Vaccines (1 of 3 - 19+ 3-dose series) 10/30/2003 COVID-19 Vaccine ( - 2023- season) 2024 Influenza Adult (#1) 2024 DTaP, Tdap and Td Vaccines (2 - Td or Tdap) 10/08/2025 10/09/2015 Cervical Cancer Screening Pap Smear (Age 30 to 64) Every 3 Years 08/01/2027 08/01/2024, 06/28/2022, 06/24/2021, Additional history exists Cervical Cancer Screening Pap with HPV Testing (Age 30 to 64) Every 5 Years 08/01/2029 08/01/2024, 06/24/2021 Cervical Cancer Screening with HPV 08/01/2029 Hepatitis C Completed 06/23/2021, 06/09, 06/23/2021, Additional history exists PHQ-2 (Physician [place]) Completed 08/01/2024 HPV Vaccines Aged Out No longer eligi ble based on patient's age to complete this topic Meningococcal B Vaccine Aged Out No l onger eligible based on patient's age to complete this topic Meningococcal Vaccine Aged Out No sharmin gaby eligible based on patient's age to complete this topic RSV Immunizations Under 20 Months Aged Out No longer eligible based on patient's age to complete this topic Procedures Procedure Name Priority Date/Time Associated Diagnosis Comments CHLAM/GC/TRICHOMONA S PROFILE Routine 08/01/2024 3:52 PM HORTICULTURAL SPECIALTY GROWER Screen for STD (sexually transmitted disease) HUMAN PAPILLOMAVIRUS, HIGH-RISK TYPES Routine 08/01/2024 12:00 PM HORTICULTURAL SPECIALTY GROWER CYTOPATH CERV/VAG THIN LAYER Routine 08/01/2024 12:00 AM HORTICULTURAL SPECIALTY GROWER from Last 3 Months Results * CHLAM/GC/TRICHOMONAS PROFILE (08/01/2024 3:52 PM HORTICULTURAL SPECIALTY GROWER) SPEC DESCRIPTION VAGINAL SPECIMEN 08/01/2024 3:52 PM HORTICULTURAL SPECIALTY GROWER [facility] CHLAMYDIA RNA TMA NEGATIVE NEGATIVE 025 4:46 PM HORTICULTURAL SPECIALTY GROWER [facility] Comment:PERFORMED BY NUCLEIC ACID AMPLIFICATION N.GONORRHOEAE RNA TMA NEGATIVE NEGATIVE 08/02/2024 4:46 PM HORTICULTURAL SPECIALTY GROWER [facility] Comment:PERFORMED BY NUCLEIC ACID AMPLIFICATION TRICHOMONAS NEGATIVE NEGATIVE 08/02/2024 4:46 PM HORTICULTURAL SPECIALTY GROWER [facility] Comment:PERFORMED BY NUCLEIC ACID AMPLIFICATION VAGINAL STRUCTURE / Unknown 08/01/2024 3:52 PM HORTICULTURAL SPECIALTY GROWER Leroy GUERRA MICROBIOLOGY - GENERAL ORDE RABLES Final Result Performing Organization Address [facility]/ZIP Co de Phone Number [facility] [address] [place] [address], * HUMAN PAPILLOMAVIRUS, HIGH-RISK TYPES (08/01/2024 12:00 PM HORTICULTURAL SPECIALTY GROWER) SPEC DESCRIPTION CERVIX 08/05/19 10:08 AM HORTICULTURAL SPECIALTY GROWER [facility] HPV DNA HIGH RISK NEGATIVE NEGATIVE 08/05/2024 2:04 PM HORTICULTURAL SPECIALTY GROWER [facility] Comment:SEE CYTOLOGY REPORT 08/01/2024 12:0 0 PM HORTICULTURAL SPECIALTY GROWER Leroy GUERRA PATHOLOGY/CYTOLOGY ORDERABL ES Final Result Performing Organization Address [facility]/ZIP Co de Phone Number [facility] [address] [place] [address], * Cytopath Cerv/Vag Thin Layer (08/01/2024 12:00 AM HORTICULTURAL SPECIALTY GROWER) THIN PREP PAP [facility] [address] [place] [address] Department of Pathology Pathology Report CERVICAL/VAGINAL PAP SMEAR REPORT Name: VIDAL HARPER Age: 4 1985 (Age: 38) Location: [facility] Sex: F Collected Date: 08/01/2024 [facility] #: [id number] Date Received: 08/02/2024 Date Reported: 08/09/2024 Provider: LEROY GUERRA INTERPRETATION CERVICAL/ENDOCERVI ADELINA: SATISFACTORY FOR EVALUATION. ENDOCERVICAL/TRANS FORMATION ZONE COMPONENT ABSENT. NEGATIVE FOR INTRAEPITHELIAL LESION OR MALIGNANCY. NEGATIVE FOR HIGH RISK HPV. The FDA approved Aptima HPV assay is an in vitro nucleic acid amplification test for the qualitative detection of E6/E7 viral messenger RNA (mRNA) from 14 high-risk types of human papillomavirus (HPV) in cervical specimens. The high-risk HPV types detected by the assay include: 16,18,31,33,35,39, 45,51,52,56,58,59, 66, and 68. Electronically Signed Out [facility] (ASCP) CLINICAL HISTORY Z12.4 PAP SMEAR FOR CERVICAL CANCER SCREENING Z01.419 ENCOUNTER FOR WELL WOMAN EXAM WITH ROUTINE GYNECOLOGICAL EXAM SCREENING PAP PERTINENT HISTORY CRYO, LEEP ThinPrep Pap Test with HR HPV testing requested. Date of Last Menstrual Period: 07/02/2024 Menstrual Status: Regular SPECIMEN SUBMITTED CERVICAL/ENDOCERVI ADELINA Specimen Received:1 Thin Prep Vial, Image Assisted Pap (SMD) Please note: The Pap smear is not a diagnostic test. It is a screening test. Negative results on combined screening (Pap test and HPV-DNA) have a high negative predictive value (99.1-100 percent) for cervical cancer. The pap test is not effective in detecting cervical adenocarcinoma. [facility] 08/01/2024 08/02/2024 1:5 2 PM [employer] Comment:CERVICAL/ENDOCERVICA L Leroy GUERRA PATHOLOGY/CYTOLOGY ORDERABL ES Final Result [facility] [address] [place] [address], from Last 3 Months Insurance MEDICARE MEDICAID R Care Teams Jewel Hole Driller Relationship Specialty Start Date End Date Garcia Ng DO [address] [place] [id number] PCP - General FAMILY PRACTICE 05/13/22
--- OUTSIDE RECORDS SUMMARY | 2024-08-16 11:19 | XMS_ITS | Encounter Summary ---
Author Organization [facility] Address [address] [place] [address] Care Team Providers Care Dragger Name Role Phone Isaac Verdugo MD Primary Care Provider [phone] Encounter Details Date Type Department Care Team (Late st Contact Info) Description 07/20/2007 Outpatient Historical [facility] Conversion, History Social History Tobacco Use Types Packs/Day Years Used Date Smoking Tobacco: Never Assessed Comments Unknown Sex and Gender Information Value Date Recorded Sex Assigned at Not on file Legal Sex Female 3:53 AM PIPE ORGAN TUNER AND REPAIRER Gender Identity Not on file Sexual Orientation Not on file documented as of this encounter Plan of Treatment Not on file documented as of this encounter Visit Diagnoses Not on filedocumented in this encounter Care Teams Dragger Relationship Specialty Start Date End Date Isaac Verdugo MD PCP - General 07/18/08 09/10/19 documented as of this encounter
--- OUTSIDE RECORDS SUMMARY | 2024-08-16 11:19 | XMS_ITS | Encounter Summary ---
Author Organization [facility] Address [address] [place] [address] Care Team Providers Care Dredge Pipe Installer Name Role Phone Isaac Verdugo MD Primary Care Provider [phone] Encounter Details Date Type Department Care Team (Late st Contact Info) Description 07/09/2007 Outpatient Historical [facility] Duran Beard MD [address] [place] [address] Social History Tobacco Use Types Packs/Day Years Used Date Smoking Tobacco: Never Assessed Comments Unknown Sex and Gender Information Value Date Recorded Sex Assigned at Not on file Legal Sex Female 3:53 AM ELECTRICAL INSTRUMENT TECHNICIAN Gender Identity Not on file Sexual Orientation Not on file documented as of this encounter Plan of Treatment Not on file documented as of this encounter Procedures Procedure Name Priority Date/Time Associated Diagnosis Comments DRUGS OF ABUSE W/REFLEX THC QUANT Routine 07/11/2007 1:47 PM ELECTRICAL INSTRUMENT TECHNICIAN documented in this encounter Results * DRUGS OF ABUSE W/REFLEX THCSQ (07/11/2007 1:47 PM ELECTRICAL INSTRUMENT TECHNICIAN) COMMENT, TOXICOLOGY See Separate Comment INTERFACE SYSTEM [...] drugs of abuse are available on the [facility] TranscribeMeet at: [email or web address] Select: Drugs of Abuse ? [facility] To inquire about any potential [...] QUAL, URINE Negative Negative INTE RFACE SYSTEM 07/11/2007 1:47 PM ELECTRICAL INSTRUMENT TECHNICIAN us Duran Melendez MD URINE ORDERABLES Edited INTERFACE SYSTEM Refer to clinic/hospital department documented in this encounter Visit Diagnoses Not on filedocumented in this encounter Care Teams Dredge Pipe Installer Relationship Specialty Start Date End Date Isaac Verdugo MD PCP - General 07/18/08 09/10/19 documented as of this encounter
--- OUTSIDE RECORDS SUMMARY | 2024-08-16 11:20 | XMS_ITS | Clinical Summary ---
Author Organization [facility] Address [address] [place] [address] Phone Care Team Providers Care Project Consultant Name Role Phone Dawna Car APN, DAILY SALES AUDIT CLERK Primary Care Pro vider Mitchell Quintana MD Unavailable Allergies No known active allergies Medications MAGNESIUM MALATE PO Take 200 mg by mouth. Active acyclovir (ZOVIRAX) 400 MG Tablet Take 1 Tablet by mouth daily. 9 Active albuterol 108 (90 Base) MCG/ACT Aerosol Solution every 4 hours 0 Active ALPRAZolam (XANAX) 1 MG Tablet Take 0.5 mg by mouth. Active Vitamin D3 (CHOLECALCIFERO L) 125 MCG Tablet Take 5,000 Units by mouth. Active cloNIDine (CATAPRES) 0.1 MG Tablet Take 0.1 mg by mouth. 1 Active Cyanocobalamin (VITAMIN B-12) 1000 MCG Tablet Take 1 Tablet by mouth daily. Active cyclobenzaprine (FLEXERIL) 10 MG Tablet Take 10 mg by mouth. 9 Active DULoxetine (CYMBALTA) [address] Particles Take 20 mg by mouth. 2 Active fexofenadine (KADEN) 180 MG Tablet TK 1 T PO QD 8 Active folic acid (FOLVITE) 1 MG Tablet Take 1 mg by mouth. 8 Active HYDROcodone-cynthia taminophen (NORCO) 10-325 MG Tablet Take 1 Tablet by mouth daily. Active naloxone HCl (Narcan) 4 MG/0.1ML Liquid INSTILL INTRANASALLY ONCE DIRECTED 1 Active ondansetron (ZOFRAN-ODT) 4 MG TABLET DISPERSIBLE Take 4 mg by mouth. 9 Active predniSONE (DELTASONE) 20 MG Tablet TAKE 3 TABLETS BY MOUTH DAILY FOR 5 DAYS as needed 2 Active Spacer/Aero-Hol ding Chambers (EasiVent) Misc 1 Device. 0 Active Spacer/Aero-Hol ding Chambers (Microchamber) Misc 1 Device. 0 Active propranolol (INDERAL) 10 MG Tablet Take 10 mg by mouth. 0 Active traZODone (DESYREL) 100 MG Tablet 2 Active valACYclovir (VALTREX) 1 GM Tablet Take 1,000 mg by mouth. 3 Active Zinc 30 MG Tablet Take 30 mg by mouth. Active hydroxychloroqu ine (PLAQUENIL) 200 MG Tablet Take 1 Tablet by mouth daily. 0 Active Active Problems No known active problems Family History Medical History Relation Name Comments No Known Problems Daughter Cancer Father skin Breast Cancer Mother Cancer Mother Breast Cancer Sister skin Relation Name Status Comments Daughter Alive Father Alive Maternal Grandfather Maternal Grandmother Mother Paternal Grandfather Paternal Grandmother Sister Alive Social History Tobacco Use Types Packs/Day Years Used Date Smoking Tobacco: Former Cigarettes 0.3 13 2 - 2013 Smokeless Tobacco: Never Tobacco Cessation:Counseling Given: Not Answered Alcohol Use Standard Drinks/Week Comments Yes 0 (1 standard drink = 0.6 oz pur e alcohol) social Sexually Active Control Partners Comments Yes Male Comments Unknown Sex and Gender Information Value Date Recorded Sex Assigned at Not on file Legal Sex Female 8:50 PM CDT Gender Identity Not on file Sexual Orientation Not on file Last Filed Vital Signs Vital Sign Reading Time Taken Comments Blood Pressure 122/76 10/18/2022 1:40 PM CDT Pulse 98 10/18/2022 1:40 PM CDT Temperature 36.9 C (98.4 F) 10/18/2022 1:40 PM CDT Respiratory Rate 16 10/18/2022 1:40 PM CDT Oxygen Saturation 98% 10/18/2022 1:40 PM CDT Inhaled Oxygen Concentration - - Weight 61.2 kg (135 lb) 10/18/2022 1:40 PM CDT Height 167.6 cm (5' 6 ) 10/18/2022 1:40 PM CDT Body Mass Index 21.79 10/18/2022 1:40 PM CDT Plan of Treatment Health Maintenance Due Date Last Done Comments Hepatitis C Virus (HCV) Screening 1984 SARS-COV-2 Immunization (#1) 1989 Hepatitis B Immunization (1 of 3 - 19+ 3-dose series) 10/30/2003 Pap Smear 2005 Cervical Cancer Screening (CCS) 2014 HPV/Cotest 2014 Influenza Immunization (#1) 2024 Respiratory Syncytial Virus (RSV) Immunization (Adult) (1 - 1-dose 75+ series) 10/30/2059 DTaP/Tdap/Td Immunization Discontinued 10/09/2015 TdaP Immunization Completed 10/09/2015 Meningococcal Immunization (ACWY) Aged Out No longer eligible based on patient's age to complete this topic Pneumococcal Immunization Combined Aged Out No longer eligible b ased on patient's age to complete this topic Rotavirus Immunization Aged Out No lo nger eligible based on patient's age to complete this topic Insurance [place]ICAID [place] Member Subscriber Plan / Payer (Ef fective 2022-Present) Name:VIDAL Bucio Relation to Subscriber:Self Name:VIDAL Bucio Payer ID:[id number] Group ID:Not on file Type:Not on file Address: [address] MEDICARE Care Teams Project Consultant Relationship Specialty Start Date End Date Dawna Car, PERIODICALS CLERK, DAILY SALES AUDIT CLERK [address] [place] [address] PCP - General Advanced Practice Nurse 08/12/22 Mitchell Quintana MD [id number] [address] Consulting Physician Colon and Rectal Surgery 10/05/22
--- OUTSIDE RECORDS SUMMARY | 2024-08-16 11:20 | XMS_ITS | Clinical Summary ---
Author Organization [facility] Address [address] [place] [address] Care Team Providers Care Program Coordinator For Residence Life Name Role Phone Unavailable Primary Care Provider Unavailabl e Allergies Active Allergy Reactions Criticality Noted Date Comments Penicillins Rash Low 07/18/2008 Medications desoximetasone (TOPICORT) 0.25 % Topical CreaIndications :Rash Apply to affected area 2 times daily. 30 Gram 0 06/08/20 09 Active albuterol (VENTOLIN HFA) 90 mcg/Actuation Inhalation HFAAIndications :Respiratory infection Take 2 Puffs by inhalation every 6 hours as needed. 1 Inhaler 2 09/09/19 10 Active inhalational spacing device (MICROCHAMBER) Mis Inha 1 Device by [facility].(Non-Drug; Combo Route) route. 1 Device 0 11/25/19 10 Active omeprazole (PRILOSEC) 20 mg Oral CpDR Take 1 Cap by mouth daily. 30 Cap 0 11/25/19 10 Active Albuterol Sulfate 1.25 mg/3 mL Inhalation NebuIndications :Pneumonia, organism unspecified(486 ) Take 3 mL by inhalation 4 times daily. 120 Vial 0 12/11/19 10 Active zolpidem (AMBIEN) 5 mg Oral tablet Take 1 Tab by mouth nightly as needed for Insomnia. 15 Tab 0 01/19/20 10 Active mirtazapine (REMERON) 15 mg Oral tabletIndicatio ns:Major depressive disorder, single episode, unspecified Take 1 Tab by mouth daily at bedtime. 30 Tab 2 04/08/20 10 Active HYDROcodone-cynthia taminophen (NORCO) 5-325 mg Oral tabletIndicatio ns:Lumbar pain with radiation down right leg Take 1 Tab by mouth every 4 hours as needed for Pain. 60 Tab 0 11/10/19 11 Active clonazePAM (KLONOPIN) 0.5 mg Oral TabIndications: Restless legs Take 1 Tab by mouth see administration instructions. 1 BID and 2 QHS 120 Tab 2 11/10/19 11 Active amphetamine-dex troamphetamine (ADDERALL) 10 mg Oral tabletIndicatio ns:ADD (attention deficit disorder with hyperactivity) Take 1 Tab by mouth 3 times daily. 90 Tab 0 11/10/19 11 Active Active Problems Problem Noted Date Diagnosed Date MRSA (methicillin resistant staph aureus) cultur e positive 02/26/2010 Abscess 02/24/2010 Pneumonia, organism unspecified(486) 12/10/2009 Chronic back pain 11/26/2009 Insomnia 11/26/2009 Fever 11/26/2009 Pneumonia 11/23/2009 Lumbar pain with radiation down right leg 2008 Restless legs 08/24/2008 ADD (attention deficit disorder with hyperactivi ty) 08/24/2008 Migraine 08/24/2008 Major depressive disorder, single episode, unspe cified 08/24/2008 Resolved Problems Problem Noted Date Diagnosed Date Resolved Date Rash 06/08/2009 11/23/2009 Pain in limb 07/19/2008 11/23/2009 Immunizations Immunization Administration Dates Next Due (HAVRIX/VAQTA)(19 YRS UP) HE PATITIS A VACCINE ADULT DOSAGE 1 ML IMM 02/26/2009 Family History Medical History Relation Name Comments High Cholesterol Father Asthma Mother Depression Mother High Cholesterol Mother Relation Name Status Comments Father Mother Social History Tobacco Use Types Packs/Day Years Used Date Smoking Tobacco: Every Day Cigarettes Alcohol Use Standard Drinks/Week Comments No 0 (1 standard drink = 0.6 oz pur e alcohol) Comments No Sex and Gender Information Value Date Recorded Sex Assigned at Not on file Legal Sex Female 3:53 AM HEALTHCARE ADMINISTRATOR Gender Identity Not on file Sexual Orientation Not on file Last Filed Vital Signs Vital Sign Reading Time Taken Comments Blood Pressure 118/72 03/22/2010 8:45 AM CDT Pulse 104 02/02/2010 9:34 AM CDT Temperature 37.5 C (99.5 F) 02/26/2010 9:34 AM CDT Respiratory Rate 18 11/29/2009 6:00 AM CDT Oxygen Saturation 99% 02/02/2010 9:34 AM CDT Inhaled Oxygen Concentration - - Weight 51.7 kg (114 lb) 03/22/2010 8:45 AM CDT Height 168.9 cm (5' 6.5 ) 11/27/2009 12:00 AM CD T Body Mass Index 18.12 11/27/2009 12:00 AM CDT Plan of Treatment Health Maintenance Due Date Last Done Comments DTAP/TDAP/TD VACCINES (1 - Tdap) 10/30/2003 HEPATITIS B VACCINES (1 of 3 - 19+ 3-dose series) 10/30/2003 CERVICAL CANCER SCREENING 2014 INFLUENZA VACCINE (#1) 2024 HPV VACCINES Aged Out No longer eligi ble based on patient's age to complete this topic Advance Directives For more information, please contact: [phone] * Full Code (Latest Code Status on File) Date Activated Date Inactivated Comments 11/26/2009 10:54 PM 11/29/2009 6:13 PM * Full Code Date Activated Date Inactivated Comments 11/23/2009 4:52 PM 11/24/2009 6:35 PM
--- OUTSIDE RECORDS SUMMARY | 2024-08-16 11:20 | XMS_ITS | Referral Summary ---
Author Organization [facility] Address [address] [place] [address] Care Team Providers Care Environmental Emergencies Assistant Name Role Phone Jak Neal MD Unavailable [phone] Gabriela Constantino NP Primary Care Provider [phone] Encounters Date Type Department Care Team Description 07/31/2024 10:30 AM TAXI SERVICER Telemedicine [facility] Stroke [address] [facility] [address] [place] [address] Moises Dumont MD PhD Restless legs (Primary Dx); Attention deficit hyperactivity disorder (ADHD), unspecified ADHD type from Last 3 Months Allergies No known active allergies Medications ondansetron ODT (ZOFRAN-ODT) 4 mg disintegrating tablet Take 1 tablet (4 mg total) by mouth every 8 hours 07/04/20 09 Active HYDROcodone-acetam inophen (NORCO) 7.5-325 mg per tabletIndications: Pain Take 2 tablets by mouth every 6 (six) hours as needed for pain Active DULoxetine DR (CYMBALTA) 20 mg capsule Take 1 capsule (20 mg total) by mouth daily Active fexofenadine (KADEN) 180 mg tablet TK 1 T PO QD 10 04/21/20 18 Active magnesium malate, bulk, 16.2 % powder Take 200 mg by mouth 2 (two) times a day Active acyclovir (ZOVIRAX) 400 mg tablet Take 1 tablet (400 mg total) by mouth daily 03/26/20 19 Active albuterol HFA (PROVENTIL HFA,VENTOLIN HFA,PROAIR HFA) 90 mcg/actuation inhaler Inhale 2 puffs every 6 hours as needed 09/09/19 10 Active celecoxib (CeleBREX) 200 mg capsule Take 1 capsule (200 mg total) by mouth daily 08/04/19 21 Active cholecalciferol (VITAMIN D-3) 5,000 unit tablet Take 1 tablet (5,000 Units total) by mouth daily Active cyanocobalamin (Vitamin B-12) 1,000 mcg tablet Take 1 tablet (1,000 mcg total) by mouth daily Active gabapentin (NEURONTIN) 300 mg capsule 07/19/19 21 Active hydrOXYchloroQUINE (PLAQUENIL) 200 mg tablet TAKE 1 TABLET BY MOUTH EVERY DAY 10/22/19 20 Active inhalational spacing device spacer 1 Device 11/25/19 10 Active OLANZapine (ZyPREXA) 15 mg tablet 07/23/19 21 Active ondansetron (ZOFRAN) 4 mg tablet 12/10/19 20 Active perphenazine (TRILAFON) 4 mg tablet 07/23/19 21 Active zinc gluconate 30 mg tablet Take 30 mg by mouth daily Active cyclobenzaprine (FLEXERIL) 10 mg tabletIndications: Chronic bilateral low back pain without sciatica Take 1 tablet (10 mg total) by mouth 3 (three) times a day as needed for muscle spasms 90 tablet 08/07/19 21 Active traZODone (DESYREL) 100 mg tablet 07/15/19 22 Active suvorexant (Belsomra) 20 mg tablet Take 1 tablet (20 mg total) by mouth daily 01/22/20 21 Active propranoloL (INDERAL) 10 mg tablet Take 1 tablet (10 mg total) by mouth 3 (three) times a day 03/20/20 20 Active naloxone (Narcan) 4 mg/actuation spray,non-aerosol 12/31/19 21 Active naloxegoL (Movantik) 25 mg tablet 09/11/19 21 Active cloNIDine (CATAPRES) 0.1 mg tablet Take 1 tablet (0.1 mg total) by mouth 3 (three) times a day 02/18/20 21 Active pramipexole (MIRAPEX) 0.125 mg tablet TAKE 2 TABLETS BY MOUTH EVERY NIGHT AT BEDTIME. MAY TAKE AN EXTRA TABLET IF NEEDED 90 tablet 11 06/21/20 24 Active methylphenidate HCl (RITALIN) 5 mg tabletIndications: Attention-Deficit Hyperactivity Disorder Take 1 tablet (5 mg total) by mouth 2 (two) times a day as needed (impaired attention and fatigue) 60 tablet 09/01/19 25 Active methylphenidate HCl (RITALIN) 5 mg tabletIndications: Attention-Deficit Hyperactivity Disorder Take 1 tablet (5 mg total) by mouth 2 (two) times a day as needed (impaired attention and fatigue) 60 tablet 08/01/19 25 025 Discontin ued(Reord er) Active Problems Problem Noted Date Diagnosed Date Health maintenance examination 08/07/2020 Overview (08/07/2020): PMH: 08/07/2020 Last pap: [facility] Last mammogram: 2013 Last dexa: Last colonoscopy/cologuard: Last tdap:10/09/2015 Last Prevnar/pneumovax: Last Shingrix: Last eye exam: 2019 Assessment & Plan (08/07/2020 4:01 PM TAXI SERVICER): PMH: 08/07/2020 Last pap: [facility] Last mammogram: 2013 Last dexa: Last colonoscopy/cologuard: Last tdap:10/09/2015 Last Prevnar/pneumovax: Last Shingrix: Last eye exam: 2019 Raynaud's disease without gangrene 08/07/2020 Assessment & Plan (08/07/2020 4:02 PM TAXI SERVICER): Hortencia, no meds Generalized anxiety disorder 08/07/2020 Overview (08/07/2020): Dr Botello Assessment & Plan (08/07/2020 4:01 PM TAXI SERVICER): Hortencia, followed by Psychiatry Herpes simplex 08/07/2020 Assessment & Plan (08/07/2020 4:02 PM TAXI SERVICER): Hortencia, takes daily preventative meds Extrinsic asthma without complication 08/07/2020 Assessment & Plan (08/07/2020 4:01 PM TAXI SERVICER): Stable, only has to use albuterol as needed Vitamin D deficiency 08/07/2020 Assessment & Plan (08/07/2020 4:02 PM TAXI SERVICER): Continue vitamin-D Seasonal allergies 08/07/2020 Assessment & Plan (08/07/2020 4:02 PM TAXI SERVICER): Stable, takes allergy meds daily Seronegative rheumatoid arthritis (CMS/HCC) 07/10 Overview (08/07/2020): Rheumatology: Dr. Carpio Assessment & Plan (08/07/2020 4:02 PM TAXI SERVICER): Followed by Rheumatology Lupus erythematosus 03/29/2016 Assessment & Plan (08/07/2020 4:02 PM TAXI SERVICER): Stable, patient taking meds. Followed by Rheumatology Chronic back pain 11/26/2009 Assessment & Plan (08/07/2020 4:01 PM TAXI SERVICER): Stable, taking meds as needed Attention deficit hyperactivity disorder (ADHD) 08/24/2008 Assessment & Plan (08/07/2020 4:01 PM TAXI SERVICER): Stable, not on meds. Followed by Psychiatry Current mild episode of ramu r depressive disorder without prior episode 08/24/2008 Assessment & Plan (08/07/2020 4:01 PM TAXI SERVICER): Stable, followed by Psychiatry Restless legs 08/24/2008 Assessment & Plan (08/07/2020 4:02 PM TAXI SERVICER): Stable, no meds Resolved Problems Problem Noted Date Diagnosed Date Resolved Date Difficulty speaking 07/20/2021 08/06/19 Chronic urticaria 06/14/2017 08/07/2020 Diarrhea 05/01/2017 08/07/2020 Abdominal pain, epigastric 07/04/2009 0 08/07/2020 Migraine 08/24/2008 12/13/2022 Assessment & Plan (08/07/2020 4:02 PM TAXI SERVICER): Stable p.r.n. meds Immunizations Name Administration Dates Next Due Hep A, Adult 02/26/2009 Tdap 10/09/2015 Social History Tobacco Use Types Packs/Day Years Used Date Smoking Tobacco: Former Cigarettes Q uit: 07/10/2014 Smokeless Tobacco: Never Tobacco Cessation:Counseling Given: Not Answered Alcohol Use Standard Drinks/Week Comments No 0 (1 standard drink = 0.6 oz pur e alcohol) PHQ-2 Answer Date Recorded PHQ-2 Total Score (If total score is 3 or more points, staff should administer the PHQ-9) 0 08/07/2020 Comments No Sex and Gender Information Value Date Recorded Sex Assigned at Not on file Legal Sex Female 10:50 PM TAXI SERVICER Gender Identity Female 06/04/2018 10:25 AM TAXI SERVICER Sexual Orientation Not on file Last Filed Vital Signs Vital Sign Reading Time Taken Comments Blood Pressure 113/70 12/19/2023 11:43 AM CDT Pulse 98 12/19/2023 11:43 AM CDT Temperature 37 C (98.6 F) 08/07/2020 9:48 AM TAXI SERVICER Respiratory Rate - - Oxygen Saturation 98% 08/07/2020 9:48 AM TAXI SERVICER Inhaled Oxygen Concentration - - Weight 65.3 kg (144 lb) 12/19/2023 11:43 AM CDT Height 167.6 cm (5' 6 ) 12/19/2023 11:43 AM CDT Body Mass Index 23.24 12/19/2023 11:43 AM CDT Plan of Treatment Not on file Insurance MEDICARE IDPA [facility] HMO/PPO Address: [address] [address] [place] [address] [facility] MEDICAID [facility] MEDICARE Care Teams Environmental Emergencies Assistant Relationship Specialty Start Date End Date Gabriela Constantino NP [address] [place] [address] PCP - General Nurse Practitioner 03/11/21 Jak Neal MD [address] [place] [address] Consulting Physician Family Medicine 07/28/20
--- OUTSIDE RECORDS SUMMARY | 2024-08-16 11:20 | XMS_ITS | Clinical Summary ---
Author Organization [facility] Address [address] [address] Care Team Providers Care Driver Guide Name Role Phone Jak Neal MD Unavailable [phone] Gabriela Constantino NP Primary Care Provider [phone] Allergies No known active allergies Medications ondansetron [...] 08/07/2020 Overview (08/07/2020): PMH: 08/07/2020 Last pap: [facility] Last mammogram: 2013 Last dexa: Last colonoscopy/cologuard: Last tdap:10/09/2015 Last Prevnar/pneumovax: Last Shingrix: Last eye exam: 2019 Assessment & Plan (08/07/2020 4:01 PM BARREL LOADER AND CLEANER): PMH: 08/07/2020 [facility] mammogram: 2013 Last dexa: Last colonoscopy/cologuard: Last tdap:10/09/2015 Last Prevnar/pneumovax: Last Shingrix: Last eye exam: 2019 Raynaud's disease without gangrene 08/07/2020 Assessment & Plan (08/07/2020 4:02 PM BARREL LOADER AND CLEANER): Hortencia, no meds Generalized anxiety disorder 08/07/2020 Overview (08/07/2020): Dr Botello Assessment & Plan (08/07/2020 4:01 PM BARREL LOADER AND CLEANER): Hortencia, followed by Psychiatry Herpes simplex 08/07/2020 Assessment & Plan (08/07/2020 4:02 PM BARREL LOADER AND CLEANER): Hortencia, takes daily preventative meds Extrinsic asthma without complication 08/07/2020 Assessment & Plan (08/07/2020 4:01 PM BARREL LOADER AND CLEANER): Hortencia, only has to use albuterol as needed Vitamin D deficiency 08/07/2020 Assessment & Plan (08/07/2020 4:02 PM BARREL LOADER AND CLEANER): Continue vitamin-D Seasonal allergies 08/07/2020 Assessment & Plan (08/07/2020 4:02 PM BARREL LOADER AND CLEANER): Stable, takes allergy meds daily Seronegative rheumatoid arthritis ([facility]/HCC) 07/10 Overview (08/07/2020): Rheumatology: Dr. Carpio Assessment & Plan (08/07/2020 4:02 PM BARREL LOADER AND CLEANER): Followed by Rheumatology Lupus erythematosus 03/29/2016 Assessment & Plan (08/07/2020 4:02 PM BARREL LOADER AND CLEANER): Hortencia, patient taking meds. Followed by Rheumatology Chronic back pain 11/26/2009 Assessment & Plan (08/07/2020 4:01 PM BARREL LOADER AND CLEANER): Stable, taking meds as needed Attention deficit hyperactivity disorder (ADHD) 08/24/2008 Assessment & Plan (08/07/2020 4:01 PM BARREL LOADER AND CLEANER): Stable, not on meds. Followed by Psychiatry Current mild episode of ramu r depressive disorder without prior episode 08/24/2008 Assessment & Plan (08/07/2020 4:01 PM BARREL LOADER AND CLEANER): Stable, followed by Psychiatry Restless legs 08/24/2008 Assessment & Plan (08/07/2020 4:02 PM BARREL LOADER AND CLEANER): Stable, no meds Resolved Problems Problem Noted Date Diagnosed Date Resolved Date Difficulty speaking 07/20/2021 08/06/19 25 Chronic urticaria 06/14/2017 08/07/2020 Diarrhea 05/01/2017 08/07/2020 Abdominal pain, epigastric 07/04/2009 0 08/07/2020 Migraine 08/24/2008 12/13/2022 Assessment & Plan (08/07/2020 4:02 PM BARREL LOADER AND CLEANER): Hortencia p.r.n. meds Encounters Date Type Department Care Team Description 07/31/2024 10:30 AM BARREL LOADER AND CLEANER Telemedicine [facility] Stroke [address] [place] [address] Moises Dumont MD PhD Restless legs (Primary Dx); Attention deficit hyperactivity disorder (ADHD), unspecified ADHD type from Last 3 Months Immunizations Name Administration Dates Next Due Hep A, Adult 02/26/2009 Tdap 10/09/2015 Surgical History Surgery Date Site/Laterality Comments RHINOPLASTY TYMPANOSTOMY ADENOIDECTOMY 07/10/1995 - 07/09/1996 COLONOSCOPY ESOPHAGOGASTRODUODENOSCOPY Medical History Medical History Date Comments Abdominal pain Abdominal pain - (Added by TW Conv) Lupus Rheumatoid arthritis (HCC) Chronic urticaria 06/14/2017 Abdominal pain, epigastric 07/04/2009 Difficulty speaking 07/20/2021 Family History Medical History Relation Name Comments Breast cancer Mother mets to lung Rheum arthritis Mother Family histo ry of rheumatoid arthritis - (Added by TW Conv) Melanoma Sister Skin cancer Sister Family history of skin cancer - (Added by TW Conv) Relation Name Status Comments Father Alive Mother Sister Alive Social History Tobacco Use Types [...] on file Legal Sex Female 10:50 PM BARREL LOADER AND CLEANER Gender Identity Female 06/04/2018 10:25 AM BARREL LOADER AND CLEANER Sexual Orientation Not on file Obstetrics History Last Filed Vital Signs Vital Sign Reading Time Taken Comments Blood Pressure 113/70 12/19/2023 11:43 AM CDT Pulse 98 12/19/2023 11:43 AM CDT Temperature 37 C (98.6 F) 08/07/2020 9:48 AM BARREL LOADER AND CLEANER Respiratory Rate - - Oxygen Saturation 98% 08/07/2020 9:48 AM BARREL LOADER AND CLEANER Inhaled Oxygen Concentration - - Weight 65.3 kg (144 lb) 12/19/2023 11:43 AM CDT Height 167.6 cm (5' 6 ) 12/19/2023 11:43 AM CDT Body Mass Index 23.24 12/19/2023 11:43 AM CDT Plan of Treatment Health Maintenance Due Date Last Done Comments Cervical Cancer Screening 1984 Hepatitis C Screening 1984 Pneumococcal vaccine <65 (1 of 2 - PCV) 1990 Hepatitis B Screening 2002 Zoster Vaccine (1 of 2) 10/30/2003 Depression Screening 08/07/2021 08/07/2020 Regular Well Visit/Exam 18-64 08/07/2021 08/07/2020, 08/07/2020 Influenza Vaccine (#1) 2024 DTaP/Tdap/Td Vaccine (2 - Td or Tdap) 10/08/2025 10/09/2015 HPV Vaccines Aged Out No longer eligi ble based on patient's age to complete this topic Varicella Vaccines Discontinued Insurance MEDICARE [facility] MEDICAID [facility] MEDICARE Care Teams Driver Guide Relationship Specialty Start Date End Date Gabriela Constantino NP [address] [facility] [address] PCP - General Nurse Practitioner 03/11/21 Jak Neal MD [address] [facility] [place] [address] Consulting Physician Family Medicine 07/28/20
[2024-08-16] MEDS: SODIUM CHLORIDE 0.9% IV 1,000 ML 999 ML (14:28)
[2024-08-16] MEDS: ONDANSETRON INJ 4 MG/2 ML VIAL (14:28)
[2024-08-16 14:50] VITALS: BP 140/86; PULSE 80; RESP 14; O2SAT 96
[2024-08-16 14:51] LABS: Basophils Percent Auto 0.2 % (0.2-1.2); Hematocrit 40.9 % (37.0-47.0); Hemoglobin 13.8 g/dL (12.0-15.0); Immature Granulocyte Absolute 0.01 K/mm3 (0.00-0.031); Immature Granulocyte Percent A 0.2 % (0-0.5); Lymphocytes Absolute Auto 0.51 K/mm3 (0.9-3.2); Lymphocytes Percent Auto 10.8 % (18.3-44.2); Mean Corpuscular HGB Conc 33.7 g/dl (32-36); Mean Corpuscular Hemoglobin 31.2 pg (26-34); Mean Corpuscular Volume 92.5 fl (80-100); Mean Platelet Volume 10.8 fl (7.4-10.4); Monocytes Absolute Auto 0.1 K/mm3 (0.1-0.6); Monocytes Percent Auto 2.7 % (2.6-8.5); Neutrophils Absolute Auto 4.1 K/mm3 (1.3-6.7); Neutrophils Percent Auto 86.1 % (45.5-73.1); Platelet Count Result 212 k/mm3 (150-375); Red Blood Count 4.42 M/mm3 (4.2-5.4); Red Cell Distribution Width 12.1 % (11.5-14.5); White Blood Count 4.7 K/mm3 (4.5-10.0)
[2024-08-16 14:57] LABS: Add Urine Microscopic? YES; Appearance Urine Clear (Clear); Bacteria Urine None Seen /hpf; Bilirubin Urine Negative (Negative); Blood Urine Negative (Negative); Color Urine Yellow (Yellow); Glucose Urine UA Negative (Negative); Ketones Urine 2+ mg/dL (Negative); Leukocyte Esterase Ur Negative LEU/UL (Negative); Nitrate Urine Negative (Negative); Non Pathogenic Casts 0-2; Protein Urine 1+ mg/dL (Negative); RBC Urine 0-2 /hpf (0-2); Specific Grav Ur 1.026 (1.001-1.035); Squamous Epithelial Cell Urine None Seen /hpf (Few); WBC Urine 0-5 /hpf (0-3); pH Urine 6.5 (5.0-9.0)
--- OUTSIDE RECORDS SUMMARY | 2024-08-16 14:57 | XMS_ITS | Encounter Summary ---
Author Organization [facility] Address [address] [place] [address] Care Team Providers Care Child Adolescent Psychiatrist Name Role Phone Garcia Ng DO Primary Care Provider + Reason for Visit * Reason Onset Date Comments Lab Results 08/13/2024 Encounter Details Date Type Department Care Team (Late st Contact Info) Description 08/13/2024 Telephone [facility] Family & Internal Medicine [facility] [address] [place] [address] Garcia Ng DO [address] [place], [place] [id number] Lab Results Social History Tobacco Use Types [...] Sex Assigned at Female 08/01/2024 1:24 PM DAYLIGHT DRILLER Legal Sex Female 7:28 PM CDT Gender Identity Not on file Sexual Orientation Not on file documented as of this encounter Progress Notes * Melody Pablo MA - 08/15/2024 4:32 PM CST Pt v/u of results. IGHT DRILLER * Melody Pablo MA - 08/13/2024 10:06 AM CST Images from the original note were not included. LMOM to please call office for lab results. ----- Message from Ashley Valero sent at 08/09/2024 3:44 PM DAYLIGHT DRILLER ----- PAP negative. Repeat in 3 years MARI Mejía Holly Nurse HPV is negative MARI Mejía Holly Nurse GC negative IGHT DRILLER IGHT DRILLER documented in this encounter Plan of Treatment Upcoming Encounters Date Type Department Care Team (Late st Contact Info) Description 09/12/2024 9:00 AM DAYLIGHT DRILLER Office Visit [facility] Family & Internal Medicine [address] [address] Garcia Ng DO [address] [place] [address] documented as of this encounter Visit Diagnoses Not on filedocumented in this encounter Additional Health Concerns Assessment Noted Time PHQ-9 Depression Total Score: 2 02/25/20 21 1:22 PM CDT documented as of this encounter Care Teams Child Adolescent Psychiatrist Relationship Specialty Start Date End Date Garcia Ng DO [address] [place] [address] PCP - General FAMILY PRACTICE 05/13/22 documented as of this encounter
--- OUTSIDE RECORDS SUMMARY | 2024-08-16 14:57 | XMS_ITS | Encounter Summary ---
Author Organization [employer] Address [address] [place] [address] Care Team Providers Care Plaster Mechanic Name Role Phone Isaac Verdugo MD Primary Care Provider [phone] Encounter Details Date Type Department Care Team (Late st Contact Info) Description 07/06/2007 Outpatient Historical [facility] Er, Authorized P NO ADDRESS ON FILE Jama Mccarthy, DO [address] [facility] [address] [place] [address] Nondependent Alcohol Abuse, Unspecified Drunkenness Social History Tobacco Use Types Packs/Day Years Used Date Smoking Tobacco: Never Assessed Comments Unknown Sex and Gender Information Value Date Recorded Sex Assigned at Not on file Legal Sex Female 3:53 AM METAL TRADES INSTRUCTOR Gender Identity Not on file Sexual Orientation Not on file documented as of this encounter Plan of Treatment Not on file documented as of this encounter Procedures Procedure Name Priority Date/Time Associated Diagnosis Comments DRUG SCREEN, URINE Routine 07/06/2007 10 :15 PM METAL TRADES INSTRUCTOR URINALYSIS W/REFLEX MICROSCOPIC Routine 07/06/2007 10:15 PM METAL TRADES INSTRUCTOR ETHANOL LEVEL Routine 07/06/2007 10:15 PM METAL TRADES INSTRUCTOR POC , URINE Routine 07/06/2007 10:00 PM METAL TRADES INSTRUCTOR POC URINALYSIS DIPSTICK NON AUTOMATED Routine 07/06/2007 10:00 PM METAL TRADES INSTRUCTOR documented in this encounter Results * DRUG SCREEN, URINE (07/06/2007 10:15 PM METAL TRADES INSTRUCTOR) COMMENT, TOXICOLOGY See Separate Comment INTERFACE SYSTEM [...] drugs of abuse are available on the [facility] iOpener Som[employer] Therapeuticset at: [email or web address] Select: Drugs of Abuse ? [facility] To inquire about any potential cross-reactivity [...] INTE RFACE SYSTEM 07/06/2007 10:1 5 PM METAL TRADES INSTRUCTOR Jama Mccarthy DO URINE ORDERABLES Edited INTERFACE SYSTEM Refer to clinic/hospital department * URINALYSIS (07/06/2007 10:15 PM METAL TRADES INSTRUCTOR) COLOR UA Colorless INTERFACE SYSTEM CLARITY UA [...] Negative INTERFACE SYSTEM 07/06/2007 10:1 5 PM METAL TRADES INSTRUCTOR Jama Bellmetricbone DO URINE ORDERABLES Edited Performing Organization Address [facility] Phone Number INTERFACE SYSTEM Refer to clinic/hospital department * (ABNORMAL) ETHANOL (07/06/2007 10:15 PM METAL TRADES INSTRUCTOR) ETHANOL 301(AA) mg/dL INTERFACE SYSTEM Comment:Results called to [facility] at 07/06/07 10:59 PM and read back verified. 07/06/2007 10:1 5 PM METAL TRADES INSTRUCTOR Jama [facility] DO CHEMISTRY ORDERABLES Edited Performing Organization Address [facility] Phone Number INTERFACE SYSTEM Refer to clinic/hospital department * POC , URINE (07/06/2007 10:00 PM METAL TRADES INSTRUCTOR) SPECIFIC GRAVITY UA 1.005 1.001 - 1.035 INTERFACE SYSTEM , URINE POC Negative Negative INTERFACE SYSTEM HCG QUAL URINE COMMENT See Below INTERFACE SYSTEM Comment:Urine resu lts may be falsely negative due to low specific gravity 07/06/2007 10:0 0 PM METAL TRADES INSTRUCTOR Authorized P Er POINT OF CARE TESTING Edited Performing Organization Address [facility] Phone Number INTERFACE SYSTEM Refer to clinic/hospital department * POC URINALYSIS DIPSTICK (07/06/2007 10:00 PM METAL TRADES INSTRUCTOR) COLOR UA Yellow INTERFACE SYSTEM CLARITY UA [...] repeat INTERFACE SYSTEM 07/06/2007 10:0 0 PM METAL TRADES INSTRUCTOR us Authorized P Er POINT OF CARE TESTING Edited INTERFACE SYSTEM Refer to clinic/hospital department documented in this encounter Visit Diagnoses Diagnosis Alcohol abuse, unspecified documented in this encounter Care Teams Plaster Mechanic Relationship Specialty Start Date End Date Isaac Verdugo MD PCP - General 07/18/08 09/10/19 documented as of this encounter
--- OUTSIDE RECORDS SUMMARY | 2024-08-16 14:57 | XMS_ITS | Encounter Summary ---
Author Organization [facility] Address [address] [place] [address] Care Team Providers Care Personal Computer Specialist Name Role Phone Isaac Verdugo MD Primary Care Provider Encounter Details Date Type Department Care Team (Late st Contact Info) Description 07/14/2008 Outpatient Historical [facility], Authorized P NO ADDRESS ON FILE Miguel Palomares MD NO ADDRESS ON FILE Lumbago; Unspecified Epilepsy without Mention of Intractable Epilepsy (CMS/HCC); Other, Mixed, or Unspecified Nondependent Drug Abuse, Unspecified (CMS/HCC); Tobacco Use Disorder; Encounter for Long-Term (Current) Use of Other Medications Social History Tobacco Use Types Packs/Day Years Used Date Smoking Tobacco: Never Assessed Comments Unknown Sex and Gender Information Value Date Recorded Sex Assigned at Not on file Legal Sex Female 3:53 AM MERCHANDISE SUPPORT ASSOCIATE Gender Identity Not on file Sexual Orientation Not on file documented as of this encounter Plan of Treatment Not on file documented as of this encounter Procedures Procedure Name Priority Date/Time Associated Diagnosis Comments CBC WITH DIFFERENTIAL Stat 07/14/2008 3:21 PM MERCHANDISE SUPPORT ASSOCIATE SEDIMENTATION RATE Stat 07/14/2008 3: 21 PM MERCHANDISE SUPPORT ASSOCIATE COMPREHENSIVE METABOLIC PANEL Stat 07/14/2008 3:21 PM MERCHANDISE SUPPORT ASSOCIATE documented in this encounter Results * SEDIMENTATION RATE (07/14/2008 3:21 PM MERCHANDISE SUPPORT ASSOCIATE) ESR (SEDIMENTATION RATE) 8 0 - 20 mm/hr [facility] Blood specimen (specimen) 07/14/2008 3:21 PM MERCHANDISE SUPPORT ASSOCIATE 07/14/2008 3:39 PM MERCHANDISE SUPPORT ASSOCIATE us Miguel Palomares MD HEMATOLOGY ORDERABLES Final Result INTERFACE SYSTEM Refer to clinic/hospital department [facility] CLIA# [id number] [address] [place] [address] * COMPREHENSIVE METABOLIC PANEL (07/14/2008 3:21 PM MERCHANDISE SUPPORT ASSOCIATE) ALKALINE PHOSPHATASE 47 35 - 104 U/L [facility] BILIRUBIN TOTAL 0.4 0.2 - 1.0 mg/dL [facility] CO2 26 22 - 30 mmol/L [facility] TOTAL PROTEIN 7.1 6.3 - 8.6 g/dL [facility] POTASSIUM 3.9 3.5 - 4.9 mmol/L [facility] GLUCOSE 87 65 - 99 mg/dL [facility] AST 21 12 - 32 U/L [facility] BUN 11 6 - 20 mg/dL [facility] CALCIUM 9.8 8.6 - 10.2 mg/dL [facility] CHLORIDE 105 96 - 108 mmol/L [facility] ALBUMIN 4.6 3.4 - 4.8 g/dL [facility] CREATININE 0.84 0.51 - 0.95 mg/dL [facility] SODIUM 139 135 - 145 mmol/L [facility] ALT 21 0 - 31 U/L [facility] GFR, >60 >=60 mL/min/1.7 sq meter [facility] GFR >60 >=60 mL/min/1.7 sq meter [facility] Comment: Modification of Diet in Renal Disease (MDRD) study formula. Estimated GFR rate interpretative information for both Americans and non- Americans is available on the [facility] Intranet at: [email or web address] Select: Lab Policies and Procedures Select: Reference Ranges - GFR Blood specimen (specimen) 07/14/2008 3:21 PM MERCHANDISE SUPPORT ASSOCIATE 07/14/2008 3:39 PM MERCHANDISE SUPPORT ASSOCIATE Miguel Palomares MD CHEMISTRY ORDERABLES Edited INTERFACE SYSTEM Refer to clinic/hospital department [facility] CLIA# [id number] [address] [place] [address] * CBC WITH DIFFERENTIAL (07/14/2008 3:21 PM MERCHANDISE SUPPORT ASSOCIATE) HEMOGLOBIN 13.5 11.8 - 14.8 g/dL [facility] RDW 12.1 11.5 - 14.5 % [facility] WBC 5.8 4.0 - 9.8 K/uL [facility] MCH 31.0 27.2 - 32.6 pg [facility] MPV 10.8 9.3 - 12.4 fL [facility] HEMATOCRIT 39.8 35.5 - 44.0 % [facility] RDW-STDEV 40.5 37.1 - 48.7 fL [facility] RBC 4.35 3.90 - 4.90 M/uL [facility] MCHC 33.9 31.5 - 35.5 % [facility] MCV 91.5 82.0 - 99.0 fL [facility] PLATELETS 234 140 - 350 K/uL [facility] EOSINOPHILS 1 0 - 7 % [facility] EOSINOPHIL ABSOLUTE 0.06 0.00 - 0.70 K/uL [facility] LYMPHOCYTES 27 16 - 45 % [facility] LYMPHOCYTE ABSOLUTE 1.56 0.70 - 4.50 K/uL [facility] BASOPHILS 0 0 - 2 % [facility] BASOPHILS ABSOLUTE 0.01 0.00 - 0.20 K/uL [facility] MONOCYTES 8 3 - 13 % [facility] MONOCYTE ABSOLUTE 0.48 0.10 - 1.30 K/uL [facility] NEUTROPHILS 64 45 - 70 % [facility] NEUTROPHIL ABSOLUTE 3.68 1.90 - 7.00 K/uL [facility] Blood specimen (specimen) 07/14/2008 3:21 PM MERCHANDISE SUPPORT ASSOCIATE 07/14/2008 3:39 PM MERCHANDISE SUPPORT ASSOCIATE Miguel Palomares MD HEMATOLOGY ORDERABLES Edited INTERFACE SYSTEM Refer to clinic/hospital department [facility] CLIA# [id number] [address] [place] [address] documented in this encounter Visit Diagnoses Diagnosis Lumbago Unspecified epilepsy without mention of intractable epilepsy (CMS/HCC) Unspecified epilepsy without mention of intractable epilepsy Other, mixed, or unspecified nondependent drug abuse, unspecified (CMS/HCC) Other, mixed, or unspecified nondependent drug abuse, unspecified Tobacco use disorder Encounter for long-term (current) use of other medications documented in this encounter Care Teams Personal Computer Specialist Relationship Specialty Start Date End Date Isaac Verdugo MD PCP - General 07/18/08 09/10/19 documented as of this encounter
--- OUTSIDE RECORDS SUMMARY | 2024-08-16 14:57 | XMS_ITS | Encounter Summary ---
Author Organization [employer] Address [address] [place] [address] Care Team Providers Care Roving Changer Name Role Phone Isaac Verdugo MD Primary Care Provider [phone] Encounter Details Date Type Department Care Team (Late st Contact Info) Description 08/20/2007 Outpatient Historical [facility] [place] Conversion, History Social History Tobacco Use Types Packs/Day Years Used Date Smoking Tobacco: Never Assessed Comments Unknown Sex and Gender Information Value Date Recorded Sex Assigned at Not on file Legal Sex Female 3:53 AM BINDERY CHIEF Gender Identity Not on file Sexual Orientation Not on file documented as of this encounter Plan of Treatment Not on file documented as of this encounter Visit Diagnoses Not on filedocumented in this encounter Care Teams Roving Changer Relationship Specialty Start Date End Date Isaac Verdugo MD PCP - General 07/18/08 09/10/19 documented as of this encounter
--- OUTSIDE RECORDS SUMMARY | 2024-08-16 14:57 | XMS_ITS | Encounter Summary ---
Author Organization [employer] Address [address] [place] [address] Care Team Providers Care Vest Tailor Name Role Phone Isaac Verdugo MD Primary Care Provider [phone] Encounter Details Date Type Department Care Team (Late st Contact Info) Description 07/20/2007 Outpatient Historical [facility] [place] Conversion, History Social History Tobacco Use Types Packs/Day Years Used Date Smoking Tobacco: Never Assessed Comments Unknown Sex and Gender Information Value Date Recorded Sex Assigned at Not on file Legal Sex Female 3:53 AM FERMENTATION ENGINEER Gender Identity Not on file Sexual Orientation Not on file documented as of this encounter Plan of Treatment Not on file documented as of this encounter Visit Diagnoses Not on filedocumented in this encounter Care Teams Vest Tailor Relationship Specialty Start Date End Date Isaac Verdugo MD PCP - General 07/18/08 09/10/19 documented as of this encounter
--- OUTSIDE RECORDS SUMMARY | 2024-08-16 14:57 | XMS_ITS | Encounter Summary ---
Author Organization [employer] Address [address] [place] [address] Care Team Providers Care Footwear Sales Associate Name Role Phone Isaac Verdugo MD Primary Care Provider [phone] Encounter Details Date Type Department Care Team (Late st Contact Info) Description 07/09/2007 Outpatient Historical [facility] Duran Beard MD [address] [place] [address] Social History Tobacco Use Types Packs/Day Years Used Date Smoking Tobacco: Never Assessed Comments Unknown Sex and Gender Information Value Date Recorded Sex Assigned at Not on file Legal Sex Female 3:53 AM DOCUMENT CONTROL CLERK Gender Identity Not on file Sexual Orientation Not on file documented as of this encounter Plan of Treatment Not on file documented as of this encounter Procedures Procedure Name Priority Date/Time Associated Diagnosis Comments DRUGS OF ABUSE W/REFLEX THC QUANT Routine 07/11/2007 1:47 PM DOCUMENT CONTROL CLERK documented in this encounter Results * DRUGS OF ABUSE W/REFLEX THCSQ (07/11/2007 1:47 PM DOCUMENT CONTROL CLERK) COMMENT, TOXICOLOGY See Separate Comment INTERFACE SYSTEM [...] drugs of abuse are available on the [facility] Encapsonet at: [email or web address] Select: Drugs of Abuse ? [facility] To inquire about any potential [...] Negative INTE RFACE SYSTEM 07/11/2007 1:47 PM DOCUMENT CONTROL CLERK us Duran Melendez MD URINE ORDERABLES Edited INTERFACE SYSTEM Refer to clinic/hospital department documented in this encounter Visit Diagnoses Not on filedocumented in this encounter Care Teams Footwear Sales Associate Relationship Specialty Start Date End Date Isaac Verdugo MD PCP - General 07/18/08 09/10/19 documented as of this encounter
--- OUTSIDE RECORDS SUMMARY | 2024-08-16 14:57 | XMS_ITS | Encounter Summary ---
Author Organization [employer] Address [address] [place] [address] Care Team Providers Care Weight Shifter Name Role Phone Isaac Verdugo MD Primary Care Provider [phone] Encounter Details Date Type Department Care Team (Latest Contact Info) Description 12/19/2008 Outpatient [facility] [address] [place] [address] [place] [address] Isaac Verdugo MD [address] [facility] [address] [place] [address] Unspecified Neuralgia, Neuritis, and Radiculitis Social History Tobacco Use Types Packs/Day Years Used Date Smoking Tobacco: Every Day Cigarettes Alcohol Use Standard Drinks/Week Comments No 0 (1 standard drink = 0.6 oz pur e alcohol) Comments No Sex and Gender Information Value Date Recorded Sex Assigned at Not on file Legal Sex Female 3:53 AM CUSTOMER SECURITY CLERK Gender Identity Not on file Sexual Orientation Not on file documented as of this encounter Plan of Treatment Not on file documented as of this encounter Visit Diagnoses Diagnosis Neuralgia, neuritis, and radiculitis, unspecified documented in this encounter Care Teams Weight Shifter Relationship Specialty Start Date End Date Isaac Verdugo MD PCP - General 07/18/08 09/10/19 documented as of this encounter
--- OUTSIDE RECORDS SUMMARY | 2024-08-16 14:57 | XMS_ITS | Encounter Summary ---
Author Organization [employer] Address [address] [place] [address] Care Team Providers Care Short Piece Handler Name Role Phone Isaac Verdugo MD Primary Care Provider [phone] Encounter Details Date Type Department Care Team [...] on file Legal Sex Female 3:53 AM MORTUARY TECHNICIAN Gender Identity Not on file Sexual Orientation Not on file documented as of this encounter Plan of Treatment Not on file documented as of this encounter Procedures Procedure Name Priority Date/Time Associated Diagnosis Comments CT LUMBAR SPINE WO CONTRAST Routine 07/29/2008 11:[address] THORACIC SPINE WO CONTRAST Routine 07/29/2008 11:[address] CHEST ABDOMEN PELVIS W CONT Routine 07/29/2008 11:[address] HEAD CERVICAL SPINE WO CONTRAST Routine 07/29/2008 11:10 PM MORTUARY TECHNICIAN POC , URINE Routine 07/29/2008 10:47 PM MORTUARY TECHNICIAN POC URINALYSIS DIPSTICK NON AUTOMATED Routine 07/29/2008 10:47 PM MORTUARY TECHNICIAN DRUG SCREEN, URINE Stat 07/29/2008 10 :36 PM MORTUARY TECHNICIAN CBC WITH DIFFERENTIAL Stat 07/29/2008 10:32 PM MORTUARY TECHNICIAN ETHANOL LEVEL Stat 07/29/2008 10:32 PM MORTUARY TECHNICIAN COMPREHENSIVE METABOLIC PANEL Stat 07/29/2008 10:32 PM MORTUARY TECHNICIAN documented in this encounter Results * CT HEAD CERVICAL SPINE WO CONTRAST (07/29/2008 11:10 PM MORTUARY TECHNICIAN) Anatomical Region Laterality Modality Head Other 07/29/2008 11:1 0 PM MORTUARY TECHNICIAN Narrative 07/29/2008 11:26 PM MORTUARY TECHNICIAN [facility] [address], [place] [address] Admit Date: 07/29/2008 VIDAL HARPER Emmy Sex: F Admit Prov: DEANN NICOLE P Date: 1985 Primary Care Prov: CMRN: [id number] [facility] SS[facility]: [id number] IMAGING SERVICES Ordering Prov: N/A Accession Number: [id number] Interpretation Examination: CT head without contrast Clinical [...] Note Lev Friedman MD - 07/29/2008 [facility] [address] [place], [place] [address] Admit Date: 07/29/2008 VIDAL HARPER Sex: F Admit Prov: ER, AUTHORIZED P Date: 1985 Primary Care Prov: CMRN: [id number] Room: [facility] SSN: [id number] IMAGING SERVICES Ordering Prov: N/A Interpretation Examination: [...] LUMBAR SPINE WO CONTRAST (07/29/2008 11:10 PM MORTUARY TECHNICIAN) Anatomical Region Laterality Modality Spine Other 07/29/2008 11:1 0 PM MORTUARY TECHNICIAN Narrative 07/29/2008 11:53 PM MORTUARY TECHNICIAN [facility] [address] [place], [place] [address] Admit Date: 07/29/2008 VIDAL HARPER Sex: F Admit Prov: ER, AUTHORIZED P Date: 1985 [facility] Care Prov: CMRN: [id number] [id number] Ordering Prov: N/A Accession Number: [id number] Interpretation Examination: CT of the lumbar spine [...] Procedure Note Lev Friedman MD - 07/29/[address] [address] Admit Date: 07/29/2008 VIDAL HARPER Sex: F Admit Prov: ER, AUTHORIZED P Date: 1985 [facility] Prov: CMRN: [id number] Room: [facility] SSN: [id number] IMAGING SERVICES Ordering Prov: N/A Interpretation Examination: [...] THORACIC SPINE WO CONTRAST (07/29/2008 11:10 PM MORTUARY TECHNICIAN) Anatomical Region Laterality Modality Spine Other 07/29/2008 11:1 0 PM MORTUARY TECHNICIAN Narrative 07/29/2008 11:54 PM MORTUARY TECHNICIAN [place] [address] [place], [place] [address] Admit Date: 07/29/2008 VIDAL HARPER Sex: F Admit Prov: ER, AUTHORIZED P Date: 1985 Primary Care Prov: CMRN: [id number] [facility] N: [id number] IMAGING SERVICES Ordering Prov: N/A Accession Number: [id number] Interpretation Examination: CT of the thoracic spine [...] Procedure Note Lev Friedman MD - 07/29/2008 [place] [address] [place] [place] [address] Admit Date: 07/29/2008 VIDAL HARPER Sex: F Admit Prov: ER, AUTHORIZED P Date: 1985 Primary Care Prov: CMRN: [id number] [facility] N: [id number] IMAGING SERVICES Ordering Prov: N/A Interpretation Examination: [...] ABDOMEN PELVIS W CONT (07/29/2008 11:10 PM MORTUARY TECHNICIAN) Anatomical Region Laterality Modality Chest Other 07/29/2008 11:1 0 PM MORTUARY TECHNICIAN Narrative 07/29/2008 11:50 PM MORTUARY TECHNICIAN [facility] [address], [place] [address] Admit Date: 07/29/2008 MEREDITH EDWARDADELINE Booth Sex: F Admit Prov: ER, AUTHORIZED P Date: 1985 Primary Care Prov: CMRN: [id number] Room: [facility] SSN: [id number] IMAGING SERVICES Ordering Prov: N/A Accession Number: [id number] Interpretation Examination: CT chest with contrast. Clinical [...] Note Lev Friedman MD - 07/29/2008 [facility] [address] [place], [place] [address] Admit Date: 07/29/2008 VIDAL HARPER Sex: F Admit Prov: DEANN NICOLE Date: 1985 Primary Care Prov: CMRN: [id number] [facility] SSN: [id number] IMAGING SERVICES Ordering Prov: N/A Interpretation Examination: [...] * POC , URINE (07/29/2008 10:47 PM MORTUARY TECHNICIAN) , URINE POC Negative Negative [facility] SPECIFIC GRAVITY UA 1.005 1.001 - 1.035 [facility] HCG QUAL URINE COMMENT See Below [facility] Comment: Urine results may be falsely negative due to low specific gravity Urine specimen (specimen) 07/29/2008 10:47 PM MORTUARY TECHNICIAN 07/29/2008 10:47 PM MORTUARY TECHNICIAN us Authorized P Er POINT OF CARE TESTING Edited Performing Organization Address [facility] de Phone Number INTERFACE SYSTEM Refer to clinic/hospital department [facility] CLIA# [id number] [address] [place] [address] * (ABNORMAL) POC URINALYSIS DIPSTICK NON AUTOMATED (07/29/2008 10:47 PM MORTUARY TECHNICIAN) UROBILINOGEN UA Normal <=1 mg/dL [facility] SPECIFIC GRAVITY UA 1.005 1.001 - 1.030 [facility] GLUCOSE UA Negative Negative [facility] COLOR UA Yellow [facility] BILIRUBIN UA Negative Negative [facility] NITRITE UA Negative Negative [facility] PH UA 6.5 5.0 - 8.0 [facility] KETONES UA 1+ (Small)(A) Negative [facility] CLARITY UA Clear [facility] PROTEIN UA Negative Negative [facility] BLOOD UA Negative Negative [facility] LEUKOCYTE ESTERASE UA Negative Negative [facility] Urine specimen (specimen) 07/29/2008 10:47 PM MORTUARY TECHNICIAN 07/29/2008 10:47 PM MORTUARY TECHNICIAN us Authorized P Er POINT OF CARE TESTING Final Resu lt Performing Organization Address [facility] Co de Phone Number INTERFACE SYSTEM Refer to clinic/hospital department [facility] CLIA# [id number] [address] [place] [address] * DRUG SCREEN, URINE (07/29/2008 10:36 PM MORTUARY TECHNICIAN) COMMENT, TOXICOLOGY See Separate Comment [facility] Comment: Urine sample was not handled [...] drugs of abuse are available on the [facility] Intranet at: [email or web address] Select: Lab Policies & Procedures Select: Drugs of Abuse-[facility] To inquire about any potential cross-reactivity of a specific drug not listed at this site, please contact the Chemistry Lab at . AMPHETAMINE QUAL, URINE Negative Negative [facility] BARBITURATE QUAL, URINE Negative Negative [facility] BENZODIAZEPINE QUAL, URINE Negative Negative [facility] CANNABINOIDS QUAL, URINE Negative Negative [facility] COCAINE QUAL URINE Presumptive Positive Negative [facility] OPIATE QUAL, URINE Negative Negative [facility] PCP QUAL, URINE Negative Negative [facility] Urine specimen (specimen) 07/29/2008 10:36 PM MORTUARY TECHNICIAN 07/29/2008 10:55 PM MORTUARY TECHNICIAN us Jun Renteria MD URINE ORDERABLES Edited INTERFACE SYSTEM Refer to clinic/hospital department [facility] CLIA# [id number] [address] [place] [address] * ETHANOL LEVEL (07/29/2008 10:32 PM MORTUARY TECHNICIAN) ETHANOL 114 mg/dL [facility] Blood specimen (specimen) 07/29/2008 10:32 PM MORTUARY TECHNICIAN 07/29/2008 10:35 PM MORTUARY TECHNICIAN Jun Renteria MD CHEMISTRY ORDERABLES Final Result INTERFACE SYSTEM Refer to clinic/hospital department [facility] CLIA# [id number] [address] [place], [place] [address] * (ABNORMAL) COMPREHENSIVE METABOLIC PANEL (07/29/2008 10:32 PM MORTUARY TECHNICIAN) CREATININE 0.89 0.51 - 0.95 mg/dL [facility] SODIUM 139 135 - 145 mmol/L [facility] ALT 15 0 - 31 U/L [facility] ALKALINE PHOSPHATASE 47 35 - 104 U/L [facility] BILIRUBIN TOTAL 0.2 0.2 - 1.0 mg/dL [facility] CO2 27 22 - 30 mmol/L [facility] TOTAL PROTEIN 6.9 6.3 - 8.6 g/dL [facility] POTASSIUM 3.5 3.5 - 4.9 mmol/L [facility] GLUCOSE 84 65 - 99 mg/dL [facility] AST 21 12 - 32 U/L [facility] BUN 5(L) 6 - 20 mg/dL [facility] CALCIUM 9.3 8.6 - 10.2 mg/dL [facility] CHLORIDE 106 96 - 108 mmol/L [facility] ALBUMIN 4.6 3.4 - 4.8 g/dL [facility] GFR, >60 >=60 mL/min/1.7 sq meter [facility] GFR >60 >=60 mL/min/1.7 sq meter [facility] Comment: Modification of Diet in Renal Disease (MDRD) study formula. Estimated GFR rate interpretative information for both Americans and non- Americans is available on the [facility] Intranet at: [email or web address] Select: Lab Policies and Procedures Select: Reference Ranges - GFR Blood specimen (specimen) 07/29/2008 10:32 PM MORTUARY TECHNICIAN 07/29/2008 10:35 PM MORTUARY TECHNICIAN us Jun Renteria MD CHEMISTRY ORDERABLES Edited INTERFACE SYSTEM Refer to clinic/hospital department [facility] CLIA# [id number] [address] [facility] [place] [address] * CBC WITH DIFFERENTIAL (07/29/2008 10:32 PM MORTUARY TECHNICIAN) RDW-STDEV 39.2 37.1 - 48.7 fL [facility] RBC 4.02 3.90 - 4.90 M/uL [facility] MCHC 34.6 31.5 - 35.5 % [facility] MCV 90.5 82.0 - 99.0 fL [facility] PLATELETS 258 140 - 350 K/uL [facility] HEMOGLOBIN 12.6 11.8 - 14.8 g/dL [facility] RDW 11.9 11.5 - 14.5 % [facility] WBC 6.9 4.0 - 9.8 K/uL [facility] MCH 31.3 27.2 - 32.6 pg [facility] MPV 10.5 9.3 - 12.4 fL [facility] HEMATOCRIT 36.4 35.5 - 44.0 % [facility] MONOCYTES 8 3 - 13 % [facility] MONOCYTE ABSOLUTE 0.55 0.10 - 1.30 K/uL [facility] NEUTROPHILS 61 45 - 70 % [facility] NEUTROPHIL ABSOLUTE 4.24 1.90 - 7.00 K/uL [facility] EOSINOPHILS 0 0 - 7 % [facility] EOSINOPHIL ABSOLUTE 0.03 0.00 - 0.70 K/uL [facility] LYMPHOCYTES 30 16 - 45 % [facility] LYMPHOCYTE ABSOLUTE 2.09 0.70 - 4.50 K/uL [facility] BASOPHILS 0 0 - 2 % [facility] BASOPHILS ABSOLUTE 0.01 0.00 - 0.20 K/uL [facility] Blood specimen (specimen) 07/29/2008 10:32 PM MORTUARY TECHNICIAN 07/29/2008 10:35 PM MORTUARY TECHNICIAN us Jun Renteria MD HEMATOLOGY ORDERABLES Edite d INTERFACE SYSTEM Refer to clinic/hospital department [facility] CLIA# [id number] [address] [place], [place] [address] documented in this encounter Visit Diagnoses Not on filedocumented in this encounter Care Teams Short Piece Handler Relationship Specialty Start Date End Date Isaac Verdugo MD PCP - General 07/18/08 09/10/19 documented as of this encounter
--- OUTSIDE RECORDS SUMMARY | 2024-08-16 14:57 | XMS_ITS | Clinical Summary ---
Author Organization [facility] Address [address] [place] [address] Care Team Providers Care Lpn Per Diem Name Role Phone Garcia Ng Primary Care [...] Stable, no meds Extrinsic asthma without complication ([facility]) 08/07/2020 Overview (05/13/2022): Last Assessment & Plan: Hortencia, only has to use albuterol as needed Generalized anxiety disorder 08/07/2020 Overview (05/13/2022): Dr Botello Last Assessment & Plan: Hortencia, followed by Psychiatry Herpes simplex 08/07/2020 Overview (05/13/2022): Last Assessment & Plan: Hortencia, takes daily preventative meds Vitamin D deficiency 08/07/2020 Overview (05/13/2022): Last Assessment & Plan: Continue vitamin-D Seronegative rheumatoid arthritis ([facility]) 07/19/2016 Overview (05/13/2022): Rheumatology: Dr. Carpio [...] Type Department Care Team Description 08/13/2024 Telephone [facility] Family & Internal [address] [phone] Garcia Ng, DO Lab Results 08/01/2024 1:20 PM [facility] Office Visit [facility] Family & Internal [address] [phone] Leroy Valero APNP Machine Maintenance Exam 08/01/2024 11:39 AM [facility] - 08/01/2024 11:59 PM [facility] Hospital Encounter [facility] [address] [address] Leroy Valero APNP Discharge Disposition: Home or Self Care (Routine Discharge) 08/01/2024 - 08/01/2024 11:38 AM [facility] Hospital Encounter [facility] [address] [address] Leroy Valero APNP Discharge Disposition: Home or [...] Sex Assigned at Female 08/01/2024 1:24 PM [facility] Legal Sex Female 7:28 PM CDT Gender Identity Not on file Sexual Orientation Not on file Last Filed Vital Signs Vital Sign Reading Time Taken Comments Blood Pressure 116/64 08/01/2024 1:24 PM [facility] Pulse 91 08/01/2024 1:24 PM [facility] Temperature 36.8 C (98.2 F) 08/01/2024 1:24 PM [facility] Respiratory Rate 16 08/01/2024 1:24 PM [facility] Oxygen Saturation 96% 08/01/2024 1:24 PM [facility] Inhaled Oxygen Concentration - - Weight 66.8 kg (147 lb 3.2 oz) 08/01/2024 1:24 P M [facility] Height 166.4 cm (5' 5.5 ) 08/01/2024 1:24 PM [facility] Body Mass Index 24.12 08/01/2024 1:24 PM [facility] Plan of Treatment Upcoming Encounters Date Type Department Care Team (Late st Contact Info) Description 09/12/2024 9:00 AM [facility] Office Visit [facility] Family & Internal Medicine [address] [phone] Garcia Ng, [address] [place] [address] Health Maintenance Due Date Last Done Comments [...] 06/09, 06/23/2021, Additional history exists PHQ-2 (Physician [place]) Completed 08/01/2024 HPV Vaccines Aged Out No [...] CHLAM/GC/TRICHOMONA S PROFILE Routine 08/01/2024 3:52 PM [facility] Screen for STD (sexually transmitted disease) HUMAN PAPILLOMAVIRUS, HIGH-RISK TYPES Routine 08/01/2024 12:00 PM [facility] CYTOPATH CERV/VAG THIN LAYER Routine 08/01/2024 12:00 AM [facility] from Last 3 Months Results * CHLAM/GC/TRICHOMONAS PROFILE (08/01/2024 3:52 PM [facility]) SPEC DESCRIPTION VAGINAL SPECIMEN 08/01/2024 3:52 PM [facility] CHLAMYDIA RNA TMA NEGATIVE NEGATIVE 025 4:46 PM [facility] Comment:PERFORMED BY NUCLEIC ACID AMPLIFICATION N.GONORRHOEAE RNA TMA NEGATIVE NEGATIVE 08/02/2024 4:46 PM [facility] Comment:PERFORMED BY NUCLEIC ACID AMPLIFICATION TRICHOMONAS NEGATIVE NEGATIVE 08/02/2024 4:46 PM [facility] Comment:PERFORMED BY NUCLEIC ACID AMPLIFICATION VAGINAL STRUCTURE / Unknown 08/01/2024 3:52 PM [facility] Leroy GUERRA MICROBIOLOGY - GENERAL ORDE RABLES Final Result Performing Organization Address [facility]/ZIP Co de Phone Number [facility] [address] [place] [address], * HUMAN PAPILLOMAVIRUS, HIGH-RISK TYPES (08/01/2024 12:00 PM [facility]) SPEC DESCRIPTION CERVIX 08/05/19 10:08 AM [facility] HPV DNA HIGH RISK NEGATIVE NEGATIVE 08/05/2024 2:04 PM [facility] Comment:SEE CYTOLOGY REPORT 08/01/2024 12:0 0 PM [facility] Leroy GUERRA PATHOLOGY/CYTOLOGY ORDERABL ES Final Result Performing Organization Address [facility]/ZIP Co de Phone Number [facility] [address] [place] [address], * Cytopath Cerv/Vag Thin Layer (08/01/2024 12:00 AM [facility]) THIN PREP PAP [facility] [address] [place] [address] Department of Pathology Pathology Report CERVICAL/VAGINAL PAP SMEAR REPORT Name: VIDAL HARPER Age: 4 1985 (Age: 38) Location: [facility] Sex: F Collected Date: 08/01/2024 [facility] #: [id number] Date Received: 08/02/2024 Date Reported: 08/09/2024 Provider: [...] 45,51,52,56,58,59, 66, and 68. Electronically Signed Out [facility] XIMENA Gurrola (ASCP) CLINICAL HISTORY Z12.4 PAP [...] is not effective in detecting cervical adenocarcinoma. [facility] 08/01/2024 08/02/2024 1:5 2 PM [facility] Comment:CERVICAL/ENDOCERVICA L Leroy GUERRA PATHOLOGY/CYTOLOGY ORDERABL ES Final Result [facility] [address] [place] [address], from Last 3 Months Insurance MEDICARE MEDICAID R Care Teams Lpn Per Diem Relationship Specialty Start Date End Date Garcia Ng DO [address] [place] [id number] PCP - General FAMILY PRACTICE 05/13/22
--- OUTSIDE RECORDS SUMMARY | 2024-08-16 14:58 | XMS_ITS | Data Portability ---
Author Organization [facility], Main Office Address [address] [place] [address] Assessment No assessment recorded. Plan of Treatment Reminders Order Date Submit Date Provider Last Modified By Organization Details Last Modified Time Details Appointments None record ed. Lab None record ed. Referral None record ed. Procedures None record ed. Surgeries None record ed. Imaging None record ed. Medication Orders None record ed. Patient TargetsNo targets recorded. Patient InstructionsNo instructions recorded. Reason for Referral None Reported. Results Created Date Observation Date Name Description Value Unit Range Abnormal Flag Note LastModifiedBy Organization Detail LastModifiedTime 02/11/20 21 XR, ankle , 3 or more view [facility] [address] [place] [address] Patien t Name: Raine LOMBARDO Access ion #: [id number] Sex: F : 1985 6 Locati on: RE2 Attend ing Physic sincere: MICAELA MONCADA Orderi Physic sincere: MICAELA MONCADA Exam Date: 02/11/20 21 12:23 PM Exam Name: XR ANKLE LT 3V+ Admitt ing Diagno sis(es ): RADIOL OGY REPORT - FINAL EXAM: XR ANKLE LT 3V+ HISTOR Y: injury of left ankle 35-yea r-old female with left ankle pain after fall 4 days ago. COMPAR CRAIG: None availa ble. TECHNI QUE: Three views of the left ankle were perfor med. FINDIN GS: No acute fractu re or disloc ation are identi fied about the left ankle. The mortis e is intact . IMPRES WARREN: No acute fractu re of the left ankle. Page 1 of 2 [facility] Patien t Name: Raine LOMBARDO Access ion #: [id number] Sex: F : 1985 6 Exam Date: 02/11/20 21 12:23 PM Exam Name: XR ANKLE LT 3V+ Admitt ing Diagno sis(es ): Create d and electr onical ly signed by: Rudy woody MD Signed Date: 02/11/20 12:43 PM (CT) Dictat ed by: Rudy woody MD (CT) (CT) Page 2 of 2 [id number] [facility] (Imaging) [address] [place], [address], 09/07/2022 06:09:37 02/11/20 21 02/10/2021 XR, ankle , 3 or more view No observ ation record ed. [id number] [facility] [address] [place], [address], 09/07/2022 06:09:37 02/17/20 21 MRI, brain , w/o contr ast [facility] [address] [place] [address] Patidon t Name: Raine LOMBARDO Access ion #: [id number] Sex: F : 1985 2 Locati on: RA2 Attend ing Physic sincere: NICOL BAH Orderi Physic sincere: NICOL BAH Exam Date: 021 1:31 PM Exam Name: MRI BRAIN WO Admitt ing Diagno sis(es ): RADIOL OGY REPORT - FINAL EXAM: MRI BRAIN WO HISTOR Y: diffic ulty findin g words COMPAR CRAIG: None availa ble. TECHNI QUE: Multip lanar multis equenc e noncon trast MR images of the brain were perfor med. FINDIN GS: No intrac ranial mass, midlin e shift, hydroc ephalu s, or signal abnorm alitie s are identi fied. No eviden ce of acute infarc t on the diffus ion-we ighted images . Flow voids are presen t in the major intrac ranial vessel s. The corpus callos um, sella, pituit nicolás, and cranio cervic al juncti on are unrema rkable . The optic globes are symmet soo. The parana giovanna sinuse s are clear. The bilate ral mastoi d air cells are clear. Page 1 of 2 [facility] Patien t Name: NAWAF Raine Nolasco Access ion #: [id number] Sex: F : 1985 2 Exam Date: 1:31 PM Exam Name: MRI BRAIN WO Admitt ing Diagno sis(es ): IMPRES WARREN: Unrema rkable noncon trast MRI of the brain. Create d and electr onical ly signed by: Miguel Ángel Bryant ch, DO Signed Date: 2:30 PM (CT) Dictat ed by: Miguel Ángel Bryant ch, DO DD: 2:30 PM (CT) DT: 2:30 PM (CT) Page 2 of 2 [id number] [facility] (Imaging) [address] [place], [address], 09/07/2022 06:09:37 03/18/20 22 03/18/2022 XR, chest , 2 view No observ ation record ed. [id number] [facility], [place], [address], 09/07/2022 06:09:37 Result Notes None recorded. Problems Name Problem SNOMED Code Status Onset Date Resolution Date Notes Provider Name and Address Organization Details Recorded Time Lupus erythematosus 528106400 Active 2020 Not Available [facility] 3 06:02:47 Rheumatoid arthritis 33087036 Active 2020 Not Available [facility] 06:02:47 Problem Notes None recorded. Procedures Surgical History Date Name Laterality Status Provider Name and Address Organization Details Recorded Time Removal of adenoids completed Not Available [facility] 09/07/2022 05:56:38 Imaging Results Imaging Date Name Status LastModified by Organiz ation Details LastModified Time 02/10/2021 XR, ankle, 3 or more view completed [id number] [facility] (Imaging) [address] [place], [address], 09/07/2022 06:09:37 02/10/2021 XR, ankle, 3 or more view completed [id number] [facility] [address] [place], [address], 09/07/2022 06:09:37 02/16/2021 MRI, brain, w/o contrast completed [id number] [facility] (Imaging) [address] [place], [address], 09/07/2022 06:09:37 03/18/2022 XR, chest, 2 view completed [id number] [address], [place], [address], 09/07/2022 06:09:37 Procedure Notes None recorded. Medical Equipment None Reported. Medications Name Sig Start Date Stop Date Status Note LastModified by Organization Details LastModified Time celecoxib 200 mg capsule Take 1 capsule every day by oral route. 2020 active Not Available Not Available Not Avai lable cyclobenzap rine 10 mg tablet Take 1 tablet 3 times a day by oral route as needed. active Not Available Not Available No t Available hydrocodone 10 mg-acetamin ophen 325 mg tablet Take 1 tablet every day by oral route as needed. 2020 active Not Available Not Available Not Avai lable cephalexin 500 mg capsule Take 1 capsule every 6 hours by oral route for 7 days. active Not Available Not Available No t Available gabapentin 300 mg capsule Take 1 capsule 4 times a day by oral route. 2020 active Not Available Not Available Not Avai lable olanzapine 15 mg tablet Take 1 tablet every day by oral route. 02/12 completed Not Available Not Available Not Available lorazepam 1 mg tablet Take 1 tab 30-60 min prior to procedure , must have emergency detail driver to/from facility active Not Available Not Available No t Available hydroxychlo roquine 200 mg tablet Take 1 tablet every day by oral route. 2020 active Not Available Not Available Not Avai lable albuterol sulfate HFA 90 mcg/actuati on aerosol inhaler Inhale 2 puffs every 4 hours by inhalatio n route as needed. active Not Available Not Available No t Available duloxetine 20 mg capsule,del ayed release Take 1 capsule twice a day by oral route. 2020 active Not Available Not Available Not Avai lable Enbrel 50 mg/mL (1 mL) subcutaneou s syringe Inject 1 mL every week by subcutane ous route. 2020 active Not Available Not Available Not Avai lable [facility] 2020 active Not Available Not Available Not Avai lable Vitals Date Recorded Body mass index (BMI) Body height Oxygen saturation Oxygen saturation in Arterial blood by Pulse oximetry Pain severity - 0-10 verbal numeric rating [Score] - Reported Heart rate Body temperature Body weight Systolic blood pressure Diastolic blood pressure Provider Name and Address Organization Details Last Updated DateTime 3 23.7 kg/m2 167.64 cm 98 % 98 % 9 108 /min 98.1 [degF] 81922.0 8 g 136 mm[Hg] 72 mm[Hg] Not Available [facility] 3 05:59:56 Social History Question Answer Notes LastModified by Organizat ion Details LastModified Time Tobacco Smoking Status Former Smoker Quit in 2014 Not [address] [facility] 09/07/2022 05:54:54 Do You Have An Advance Directive? No [id number] Information not available 09/07/2022 What Is Your Level Of Alcohol Consumption? None [id number] [id number] Information not available 09/07/2022 What Is Your Level Of Caffeine Consumption? Occasional [id number] [id number] Information not available 09/07/2022 In The 14 Days Before Symptom Onset, Have You Had Close Contact With A Laboratory-confir med COVID-19 While That Case Was Ill? No [id number] [id number] Information not available 09/07/2022 In The 14 Days Before Symptom Onset, Have You Had Close Contact With A Person Who Is Under Investigation For COVID-19 While That Person Was Ill? No [id number].56072 [id number] Information not available 09/07/2022 When Did You Quit Smoking? 6-10yearssince lastcigarette MIGRATION.67105 [id number] Information not available 09/07/2022 Are You Following A Low Salt Diet? Yes [id number].73621 14981 Information not available 09/07/2022 Do You Have A Medical Power Of Code Enforcement Officer? No MIGRATION.75357 17949 Information not available 09/07/2022 What Was The Date Of Your Most Recent Tobacco Screening? 02/10/2021 [id number] Information not available 09/07/2022 What Is Your Relationship Status? Single [id number].68969 [id number] Information not available 09/07/2022 Are You Passively Exposed To Smoke? No [id number].46786 [id number] Information not available 09/07/2022 Are There Any Smokers In Your House? No MIGRATION.19342 76513 Information not available 09/07/2022 Do You Use Any Illicit Or Recreational Drugs? No MIGRATION.39646 99471 Information not available 09/07/2022 Have You Recently Traveled Abroad? No MIGRATION.87181 05020 Information not available 09/07/2022 Do You Have Any Dietary Restrictions? Yes Gluten/da iry Free MIGRATION.91662 32975 Information not available 09/07/2022 Do You Or Have You Ever Used Any Other Forms Of Tobacco Or Nicotine? No MIGRATION.05845 90359 Information not available 09/07/2022 Sex: Female Functional Status Question Answer Note LastModified by Organizat ion Details LastModified Time What is your exercise level? Occasional [id number] Information not available 09/07/2022 Mental Status None recorded. Family History Relationship Description Onset Age of this Age Resolved Age Notes LastModified by Organization Details LastModified Time Mother Malignant tumor of breast [id number] Not available 09/07/2022 05:56:41 Medical History Condition Response HAVE YOU BEEN HOSPITALIZED OR SEEN IN [facility] IN THE PAST YEAR ? Y Gynecological HistoryNo gynecological history recorded. Obstetrics History GPAL:G 0 P 0 0 0 0 Past Encounters Encounter ID Performer Location Encounter Start Date Encounter Closed Date Diagnosis/Indication Diagnosis SNOMED-CT Code Diagnosis ICD10 Code Diagnosis Note [id number] [facility] Keli hernandez [address] [facility] , [place] [address] 02/10/2021 00:00:00 02/10/2021 14:08:28 [id number] [facility] [place] [address] [address] 03/16/2021 00:00:00 03/16/2021 11:07:19 [id number] [facility] [place] [address] [address] 04/12/2021 00:00:00 04/12/2021 14:57:28 [id number] [facility] [place] [address] [address] 05/19/2021 00:00:00 05/19/2021 10:52:35 [id number] [facility] [place] [address] [address] 08/05/2021 00:00:00 08/05/2021 18:36:46 [id number] [facility] [place] [address] [address] 09/09/2021 00:00:00 09/09/2021 14:23:35 [id number] [facility] [place] [address] [address] 10/07/2021 00:00:00 10/07/2021 14:31:42 [id number] [facility] [address] [place] [address] [address] 11/09/2021 00:00:00 11/09/2021 16:57:18 [id number] [facility] [address] [place] [address] [address] 12/20/2021 00:00:00 12/20/2021 15:34:05 [id number] [facility] [address] [place] [address] [address] 02/17/2022 00:00:00 02/17/2022 14:15:22 [id number] [facility] [address] [place] [address] [address] 04/19/2022 00:00:00 04/19/2022 14:41:04 [id number] [facility] [address] [place] [address] [address] 08/01/2022 00:00:00 08/01/2022 14:30:01 [id number] Jacki Malcolm NP [facility] [address] [place] [address] [address] 11/30/2022 16:33:31 11/30/2022 17:47:12 [id number] Jacki Malcolm NP [facility] [address] [address] 02/21/2023 10:13:53 02/21/2023 11:14:52 [id number] Jacki Malcolm NP [facility] [address] [address] 05/17/2023 10:05:57 05/17/2023 12:55:41 [id number] Jacki Malcolm NP [facility] [address] [address] 08/09/2023 14:14:44 08/09/2023 14:36:55 [id number] Jacki Malcolm NP [facility] [address] [place] [address] [address] 11/01/2023 13:56:40 11/01/2023 14:18:25 [id number] Jacki Malcolm NP [facility] [address] [place] [address] [address] 02/05/2024 13:58:08 02/05/2024 15:45:20 [id number] Jacki Malcolm NP [facility] [address] [address] 05/23/2024 13:52:41 05/23/2024 14:19:07 Health Concerns Section Related Observation LastModified by Organization Detai ls LastModified Time None Recorded Concern Status LastModified by Organization Details LastModified Time None Recorded Advance Directives Directive N: Payers None recorded. OBGyn Episode No OBEpisode recorded.
--- OUTSIDE RECORDS SUMMARY | 2024-08-16 14:58 | XMS_ITS | Clinical Summary ---
Author Organization [facility] Address [address] [address] Care Team Providers Care Batter Mixer Helper Name Role Phone Unavailable Primary Care Provider [...] device (MICROCHAMBER) Mis Inha 1 Device by [facility].(Non-Drug; Combo Route) route. 1 Device 0 11/25/19 [...] on file Legal Sex Female 3:53 AM OPERATIONS OFFICER AFLOAT Gender Identity Not on file Sexual Orientation [...] Advance Directives For more information, please contact: [phone] * Full Code (Latest Code Status on File) Date Activated Date Inactivated Comments 11/26/2009 10:54 PM 11/29/2009 6:13 PM * Full Code Date Activated Date Inactivated Comments 11/23/2009 4:52 PM 11/24/2009 6:35 PM
--- OUTSIDE RECORDS SUMMARY | 2024-08-16 14:58 | XMS_ITS | Clinical Summary ---
Author Organization [facility] Address [address] [address] Care Team Providers Care Wrapper Dipper Name Role Phone Jak Neal MD Unavailable [phone]- [phone] Gabriela Constantino NP Primary Care Provider [phone] -[phone] Allergies No known active allergies Medications ondansetron [...] 08/07/2020 Overview (08/07/2020): PMH: 08/07/2020 Last pap: [facility] Last mammogram: 2013 Last dexa: Last colonoscopy/cologuard: Last tdap:10/09/2015 Last Prevnar/pneumovax: Last Shingrix: Last eye exam: 2019 Assessment & Plan (08/07/2020 4:01 PM ORTHOTIC TECHNICIAN): PMH: 08/07/2020 [facility] Last mammogram: 2013 Last dexa: Last colonoscopy/cologuard: Last tdap:10/09/2015 Last Prevnar/pneumovax: Last Shingrix: Last eye exam: 2019 Raynaud's disease without gangrene 08/07/2020 Assessment & Plan (08/07/2020 4:02 PM ORTHOTIC TECHNICIAN): Hortencia, no meds Generalized anxiety disorder 08/07/2020 Overview (08/07/2020): Dr Botello Assessment & Plan (08/07/2020 4:01 PM ORTHOTIC TECHNICIAN): Hortencia, followed by Psychiatry Herpes simplex 08/07/2020 Assessment & Plan (08/07/2020 4:02 PM ORTHOTIC TECHNICIAN): Hortencia, takes daily preventative meds Extrinsic asthma without complication 08/07/2020 Assessment & Plan (08/07/2020 4:01 PM ORTHOTIC TECHNICIAN): Hortencia, only has to use albuterol as needed Vitamin D deficiency 08/07/2020 Assessment & Plan (08/07/2020 4:02 PM ORTHOTIC TECHNICIAN): Continue vitamin-D Seasonal allergies 08/07/2020 Assessment & Plan (08/07/2020 4:02 PM ORTHOTIC TECHNICIAN): Stable, takes allergy meds daily Seronegative rheumatoid arthritis ([facility]/HCC) 07/10 Overview (08/07/2020): Rheumatology: Dr. Carpio Assessment & Plan (08/07/2020 4:02 PM ORTHOTIC TECHNICIAN): Followed by Rheumatology Lupus erythematosus 03/29/2016 Assessment & Plan (08/07/2020 4:02 PM ORTHOTIC TECHNICIAN): Hortencia, patient taking meds. Followed by Rheumatology Chronic back pain 11/26/2009 Assessment & Plan (08/07/2020 4:01 PM ORTHOTIC TECHNICIAN): Stable, taking meds as needed Attention deficit hyperactivity disorder (ADHD) 08/24/2008 Assessment & Plan (08/07/2020 4:01 PM ORTHOTIC TECHNICIAN): Stable, not on meds. Followed by Psychiatry Current mild episode of ramu r depressive disorder without prior episode 08/24/2008 Assessment & Plan (08/07/2020 4:01 PM ORTHOTIC TECHNICIAN): Stable, followed by Psychiatry Restless legs 08/24/2008 Assessment & Plan (08/07/2020 4:02 PM ORTHOTIC TECHNICIAN): Stable, no meds Resolved Problems Problem Noted Date Diagnosed Date Resolved Date Difficulty speaking 07/20/2021 08/06/19 25 Chronic urticaria 06/14/2017 08/07/2020 Diarrhea 05/01/2017 08/07/2020 Abdominal pain, epigastric 07/04/2009 0 08/07/2020 Migraine 08/24/2008 12/13/2022 Assessment & Plan (08/07/2020 4:02 PM ORTHOTIC TECHNICIAN): Hortencia p.r.n. meds Encounters Date Type Department Care Team Description 07/31/2024 10:30 AM ORTHOTIC TECHNICIAN Telemedicine [facility] Stroke [address] [facility] [address] [place] [address] Moises Dumont MD PhD Restless legs (Primary [...] on file Legal Sex Female 10:50 PM ORTHOTIC TECHNICIAN Gender Identity Female 06/04/2018 10:25 AM ORTHOTIC TECHNICIAN Sexual Orientation Not on file Obstetrics History Last Filed Vital Signs Vital Sign Reading Time Taken Comments Blood Pressure 113/70 12/19/2023 11:43 AM CDT Pulse 98 12/19/2023 11:43 AM CDT Temperature 37 C (98.6 F) 08/07/2020 9:48 AM ORTHOTIC TECHNICIAN Respiratory Rate - - Oxygen Saturation 98% 08/07/2020 9:48 AM ORTHOTIC TECHNICIAN Inhaled Oxygen Concentration - - Weight 65.3 [...] this topic Varicella Vaccines Discontinued Insurance MEDICARE [facility] Address: [address] [address] [place] [address] [facility] [place] [address] [facility] MEDICARE Care Teams Wrapper Dipper Relationship Specialty Start Date End Date Gabriela Constantino NP [address] [facility] [address] PCP - General Nurse Practitioner 03/11/21 Jak Neal MD [address] [facility] [place] [address] Consulting Physician Family Medicine 07/28/20
--- OUTSIDE RECORDS SUMMARY | 2024-08-16 14:58 | XMS_ITS | Referral Summary ---
Author Organization [facility] Address [address] [place] [address] Care Team Providers Care Facilities Project Manager Name Role Phone Jak Neal MD Unavailable [phone]- [phone] Gabriela Constantino NP Primary Care Provider [phone] -[phone] Encounters Date Type Department Care Team Description 07/31/2024 10:30 AM HERITAGE CONSULTANT Telemedicine [facility] Stroke [address] [facility] [address] [place] [address] Moises Dumont MD PhD Restless [...] 08/07/2020 Overview (08/07/2020): PMH: 08/07/2020 Last pap: [facility] Last mammogram: 2013 Last dexa: Last colonoscopy/cologuard: Last tdap:10/09/2015 Last Prevnar/pneumovax: Last Shingrix: Last eye exam: 2019 Assessment & Plan (08/07/2020 4:01 PM HERITAGE CONSULTANT): PMH: 08/07/2020 Last pap: [facility] Last mammogram: 2013 Last dexa: Last colonoscopy/cologuard: Last tdap:10/09/2015 Last Prevnar/pneumovax: Last Shingrix: Last eye exam: 2019 Raynaud's disease without gangrene 08/07/2020 Assessment & Plan (08/07/2020 4:02 PM HERITAGE CONSULTANT): Hortencia, no meds Generalized anxiety disorder 08/07/2020 Overview (08/07/2020): Dr Botello Assessment & Plan (08/07/2020 4:01 PM HERITAGE CONSULTANT): Hortencia, followed by Psychiatry Herpes simplex 08/07/2020 Assessment & Plan (08/07/2020 4:02 PM HERITAGE CONSULTANT): Hortencia, takes daily preventative meds Extrinsic asthma without complication 08/07/2020 Assessment & Plan (08/07/2020 4:01 PM HERITAGE CONSULTANT): Stable, only has to use albuterol as needed Vitamin D deficiency 08/07/2020 Assessment & Plan (08/07/2020 4:02 PM HERITAGE CONSULTANT): Continue vitamin-D Seasonal allergies 08/07/2020 Assessment & Plan (08/07/2020 4:02 PM HERITAGE CONSULTANT): Stable, takes allergy meds daily Seronegative rheumatoid arthritis (CMS/HCC) 07/10 Overview (08/07/2020): Rheumatology: Dr. Carpio Assessment & Plan (08/07/2020 4:02 PM HERITAGE CONSULTANT): Followed by Rheumatology Lupus erythematosus 03/29/2016 Assessment & Plan (08/07/2020 4:02 PM HERITAGE CONSULTANT): Stable, patient taking meds. Followed by Rheumatology Chronic back pain 11/26/2009 Assessment & Plan (08/07/2020 4:01 PM HERITAGE CONSULTANT): Stable, taking meds as needed Attention deficit hyperactivity disorder (ADHD) 08/24/2008 Assessment & Plan (08/07/2020 4:01 PM HERITAGE CONSULTANT): Stable, not on meds. Followed by Psychiatry Current mild episode of ramu r depressive disorder without prior episode 08/24/2008 Assessment & Plan (08/07/2020 4:01 PM HERITAGE CONSULTANT): Stable, followed by Psychiatry Restless legs 08/24/2008 Assessment & Plan (08/07/2020 4:02 PM HERITAGE CONSULTANT): Stable, no meds Resolved Problems Problem Noted Date Diagnosed Date Resolved Date Difficulty speaking 07/20/2021 08/06/19 Chronic urticaria 06/14/2017 08/07/2020 Diarrhea 05/01/2017 08/07/2020 Abdominal pain, epigastric 07/04/2009 0 08/07/2020 Migraine 08/24/2008 12/13/2022 Assessment & Plan (08/07/2020 4:02 PM HERITAGE CONSULTANT): Stable p.r.n. meds Immunizations Name Administration Dates [...] on file Legal Sex Female 10:50 PM HERITAGE CONSULTANT Gender Identity Female 06/04/2018 10:25 AM HERITAGE CONSULTANT Sexual Orientation Not on file Last Filed Vital Signs Vital Sign Reading Time Taken Comments Blood Pressure 113/70 12/19/2023 11:43 AM CDT Pulse 98 12/19/2023 11:43 AM CDT Temperature 37 C (98.6 F) 08/07/2020 9:48 AM HERITAGE CONSULTANT Respiratory Rate - - Oxygen Saturation 98% 08/07/2020 9:48 AM HERITAGE CONSULTANT Inhaled Oxygen Concentration - - Weight 65.3 kg (144 lb) 12/19/2023 11:43 AM CDT Height 167.6 cm (5' 6 ) 12/19/2023 11:43 AM CDT Body Mass Index 23.24 12/19/2023 11:43 AM CDT Plan of Treatment Not on file Insurance MEDICARE [employer] [facility] H[facility]/PPO Address: [address] [address] [place] [address] [facility] MEDICAID [facility] MEDICARE Care Teams Facilities Project Manager Relationship Specialty Start Date End Date Gabriela Constantino NP [address] [place] [address] PCP - General Nurse Practitioner 03/11/21 Jak Neal MD [address] [place] [address] Consulting Physician Family Medicine 07/28/20
--- OUTSIDE RECORDS SUMMARY | 2024-08-16 14:58 | XMS_ITS | Clinical Summary ---
Author Organization [facility] Address [address] [place] [address] Phone Care Team Providers Care Dust Mixer Name Role Phone Dawna Car APN, ROLLOUT MANAGER Primary Care Pro vider Mitchell Quintana MD [...] ID:Not on file Type:Not on file Address: [address] MEDICARE Care Teams Dust Mixer Relationship Specialty Start Date End Date Dawna Car, ARMOR OFFICER, ROLLOUT MANAGER [address] [place] [address] PCP - General Advanced Practice Nurse 08/12/22 Mitchell Quintana MD [address] [address] Consulting Physician Colon and Rectal Surgery 10/05/22
[2024-08-16 15:01] LABS: Alanine Aminotransferase 62 U/L (6-35); Albumin Level 4.3 g/dL (3.5-5.1); Alkaline Phosphatase 64 U/L (38-126); Anion Gap 7 mmol/L (4-12); Aspartate Amino Transferase 46 U/L (14-36); Bilirubin,Total 0.5 mg/dL (0.2-1.3); Blood Urea Nitrogen 19 mg/dL (7-17); Carbon Dioxide 30 mmol/L (22-30); Chloride 101 mmol/L (98-107); Estimated CRCL calculation 89 ml/min; Estimated Glomerular Filt Rate > 60; Glucose 126 mg/dL (65-110); Lipase 141 U/L (23-300); Potassium 3.9 mmol/L (3.4-5.0); Sodium 138 mmol/L (137-145)
[2024-08-16] MEDS: HYDROmorphone HCL INJ (*CRX) 1 MG/ML SYR 0.5 MG IV PUSH (15:15)
[2024-08-16] MEDS: METOCLOPRAMIDE HCL INJ 10 MG/2 ML VIAL IV PUSH (15:15)
--- NOTE | 2024-08-16 15:33 | ED.GENADULT ---
HPI - General Adult General Chief complaint: Abdominal Pain Stated complaint: vomiting, abd pain Time Seen by Provider: 08/16/24 14:14 History of Present Illness HPI narrative: 38-year-old female presenting to the emergency department for evaluation for nausea vomiting diarrhea and diffuse abdominal pain. Patient reports the symptoms started approximately 2 days ago. Patient describes epigastric pain and left lower quadrant abdominal pain. Patient denies any blood in her stool. Patient denies any prior abdominal surgical history. Patient uncomfortable appearing at time of evaluation. Related Data Home Medications ?Medication ?Instructions ?Recorded ?Confirmed ?Last Taken ?Type celecoxib 200 mg capsule 200 mg PO DAILY 02/17/21 04/02/21 Unknown History duloxetine 20 mg capsule,delayed 20 mg PO DAILY 02/17/21 04/02/21 Unknown History release etanercept 50 mg/mL (1 mL) 50 mg subcut WEEKLY 02/17/21 04/02/21 Unknown History subcutaneous syringe (Enbrel) gabapentin 300 mg capsule 300 mg PO TID 02/17/21 04/02/21 Unknown History hydroxychloroquine 200 mg tablet 200 mg PO DAILY 02/17/21 04/02/21 Unknown History prednisone 50 mg tablet 60 mg PO DAILY 02/17/21 04/02/21 Unknown History Allergies Allergy/AdvReac Type Severity Reaction Status Date / Time No Known Allergies Allergy Verified 08/16/24 16:28 Review of Systems Review of Systems: All systems reviewed & are unremarkable except as noted in HPI and below PMFSH Past Medical History Medical History Anxiety Arthritis History of systemic lupus erythematosus Family History Family History Mother Skin cancer Depression Anxiety Social History Social History Smoking status: Former smoker Alcohol intake: never Substance use: never Gender identity (if verbalized by the patient): Female Exam Narrative: APPEARANCE: Well appearing, no pain, no distress, well-nourished. HEAD: normocephalic, atraumatic. EYES: PERRLA/EOMI, conjunctivae clear. NOSE: Normal no drainage EARS:TMS clear with good light reflex. THROAT: Pharynx clear, no exudate. NECK: Supple. No adenopathy, no masses. RESPIRATORY: Airway patent, respirations nonlabored. Clear to auscultation bilaterally, no rales, rhonchi, wheezing. CARDIOVASCULAR: Regular rate and rhythm without murmurs rubs or gallops. ABDOMINAL: Epigastric tenderness to palpation MUSCULOSKELETAL: Moves all extremities. Strength/ROM intact, No edema, No calf tenderness. NEURO: Alert. Cranial nerves II through XII intact. Grossly intact SKIN: Warm, dry. Normal Color Course Vital Signs Vital signs: Vital Signs Temperature 97.7 F 08/16/24 10:40 Pulse Rate 60 08/16/24 10:40 Respiratory Rate 14 08/16/24 10:40 Blood Pressure 118/90 08/16/24 10:40 Pulse Oximetry 100 08/16/24 10:40 Oxygen Delivery Room Air 08/16/24 10:40 Temperature 97.7 F 08/16/24 10:40 Pulse Rate 76 08/16/24 16:29 Respiratory Rate 16 08/16/24 16:29 Blood Pressure 130/86 08/16/24 16:29 Pulse Oximetry 99 08/16/24 16:29 Oxygen Delivery Room Air 08/16/24 10:40 Medical Decision Making [facility] Narrative Medical decision making narrative: 38-year-old female present to the emergency department for evaluation for epigastric abdominal pain with associated nausea and vomiting. Patient is currently afebrile with no leukocytosis and hemoglobin of 13.8. Patient has no significant abnormalities on her CMP. Patient was positive for ketones on her urine but no underlying evidence of infection. CT abdomen pelvis was ordered due to the abdominal pain. CT scan showed No acute intra-abdominal pathology. Innumerable nonacute findings. Patient was initially treated with narcotic pain medications including 1 mg of IV Dilaudid and patient did not have significant pain improvement with this. Patient was treated with GI cocktail, IV famotidine, IV Protonix and did report significant improvement. Patient family updated the results of the workup. Differential Diagnosis Differential Diagnosis: Colitis, diverticulitis, esophagitis, gastritis, pancreatitis, UTI, ureteral calculi, dehydration Vital Signs Vital Signs: Vital Signs Temperature 97.7 F 08/16/24 10:40 Pulse Rate 60 08/16/24 10:40 Respiratory Rate 14 08/16/24 10:40 Blood Pressure 118/90 08/16/24 10:40 Pulse Oximetry 100 08/16/24 10:40 Oxygen Delivery Room Air 08/16/24 10:40 Temperature 97.7 F 08/16/24 10:40 Pulse Rate 76 08/16/24 16:29 Respiratory Rate 16 08/16/24 16:29 Blood Pressure 130/86 08/16/24 16:29 Pulse Oximetry 99 08/16/24 16:29 Oxygen Delivery Room Air 08/16/24 10:40 Lab Data Lab results reviewed: Yes I reviewed the patient's lab results. 08/16/24 14:41 08/16/24 14:41 Labs: Lab Results 08/16/24 Range/Units 14:41 WBC 4.7 (4.5-10.0) K/mm3 RBC 4.42 (4.2-5.4) M/mm3 Hgb 13.8 (12.0-15.0) g/dL Hct 40.9 (37.0-47.0) % MCV 92.5 (80-100) fl MCH 31.2 (26-34) pg MCHC 33.7 (32-36) g/dl RDW 12.1 (11.5-14.5) % Plt Count 212 (150-375) k/mm3 MPV 10.8 H (7.4-10.4) fl Immature Gran % (Auto) 0.2 (0-0.5) % Neut % (Auto) 86.1 H (45.5-73.1) % Lymph % (Auto) 10.8 L (18.3-44.2) % Benson % (Auto) 2.7 (2.6-8.5) % Eos % (Auto) 0.0 (0-4.4) % Baso % (Auto) 0.2 (0.2-1.2) % Lymph # (Auto) 0.51 L (0.9-3.2) K/mm3 Benson # (Auto) 0.1 (0.1-0.6) K/mm3 Eos # (Auto) 0.0 (0-0.3) K/mm3 Baso # (Auto) 0.0 (0.0-0.1) K/mm3 Abs Immat Gran (auto) 0.01 (0.00-0.031) K/mm3 Absolute Neuts (auto) 4.1 (1.3-6.7) K/mm3 Absolute Nucleated RBC 0.000 (0.0-0.012) K/mm3 Nucleated RBC % 0.0 (0.0-0.2) % Sodium 138 (137-145) mmol/L Potassium 3.9 (3.4-5.0) mmol/L Chloride 101 (98-107) mmol/L Carbon Dioxide 30 (22-30) mmol/L Anion Gap 7 (4-12) mmol/L BUN 19 H (7-17) mg/dL Creatinine 0.68 L (0.7-1.0) mg/dL Estim Creat Clear Calc 89 ml/min Estimated GFR > 60 (59 - ) Glucose 126 H (65-110) mg/dL Calcium 9.0 (8.4-10.2) mg/dL Total Bilirubin 0.5 (0.2-1.3) mg/dL AST 46 H (14-36) U/L ALT 62 H (6-35) U/L Alkaline Phosphatase 64 (38-126) U/L Total Protein 7.0 (6.3-8.2) g/dL Albumin 4.3 (3.5-5.1) g/dL Lipase 141 (23-300) U/L Urine Color Yellow (Yellow) Urine Appearance Clear (Clear) Urine pH 6.5 (5.0-9.0) Ur Specific Woodruff 1.026 (1.001-1.035) Urine Protein 1+ H (Negative) mg/dL Urine Glucose (UA) Negative (Negative) mg/dL Urine Ketones 2+ H (Negative) mg/dL Ur Blood (Man) Negative (Negative) Urine Nitrate Negative (Negative) Urine Bilirubin Negative (Negative) Urine Urobilinogen 1.0 (<2.0) mg/dL Leukocyte Esterase Rfl Negative (Negative) MOUSTAPHA/UL Urine RBC 0-2 (0-2) /hpf Urine WBC 0-5 (0-3) /hpf Ur Squamous Epith Cells None seen (Few) /hpf Urine Bacteria None seen /hpf Urine Casts 0-2 Imaging Data Radiologist's impression: Impressions Abdomen/Pelvis CT 08/16/24 16:11 IMPRESSION: No acute intra-abdominal pathology. Innumerable nonacute findings, as detailed above. Discharge Plan Discharge Clinical Impression: Abdominal pain, epigastric, Nausea & vomiting Patient Disposition: Home, Self-Care Condition: Stable Instructions: Antibiotic Form, Gastritis (ED), Clear Liquid Diet (ED), Diet for Stomach Ulcers and Gastritis (ED), Abdominal Pain (ED) Additional Instructions: Clear liquid diet for the next 1-3 days. Zofran as needed for nausea control. Omeprazole as directed for the next 14 days. Maalox as needed for intermittent epigastric pain. Have close follow-up with your primary care physician. If you have any worsening symptoms please call or return to the emergency department. Patient Language: Faroese Prescriptions: New ondansetron 4 mg tablet,disintegrating 4 mg PO Q8H PRN (Reason: nausea and vomiting) Qty: 14 0RF No Action Enbrel 50 mg/mL (1 mL) syringe 50 mg subcut WEEKLY hydroxychloroquine 200 mg tablet 200 mg PO DAILY duloxetine 20 mg capsule,delayed release(DR/EC) 20 mg PO DAILY gabapentin 300 mg capsule 300 mg PO TID celecoxib 200 mg capsule 200 mg PO DAILY prednisone 50 mg tablet 60 mg PO DAILY prednisone 20 mg tablet 60 mg PO DAILY 5 Days Qty: 15 0RF albuterol sulfate [Proventil HFA] 90 mcg/actuation HFA aerosol inhaler 1 inh inhalation QID Qty: 8.5 0RF Follow-up/Referrals: PHYSICIAN,DEVELOPMENT WRITER [Primary Care Provider] -
[2024-08-16] MEDS: BELLADONNA ALK/PHENOB ELIX 10 ML, MAG HYDROX/ALUMINUM HYD/SIMETH 30 ML, LIDOCAINE 2% VI... PO (15:49)
[2024-08-16] MEDS: SODIUM CHLORIDE 0.9% IV 1,000 ML 999 ML IV CONT (15:50)
[2024-08-16] MEDS: PANTOPRAZOLE SODIUM IV 40 MG VIAL IV PUSH (15:50)
[2024-08-16] MEDS: FAMOTIDINE 20 MG/2 ML VIAL IV PUSH (15:50)
[2024-08-16 16:29] VITALS: BP 130/86; PULSE 76; RESP 16; O2SAT 99
== END 2024-08-16 17:39 | disposition home or self-care (01) ==
PROVIDERS: Student in an Organized Health Care Education/Training Program; Emergency Provider Emergency Medicine
DX: R10.13 Epigastric pain (principal); R11.2 Nausea with vomiting, unspecified; M32.9 Systemic lupus erythematosus, unspecified; Z87.891 Personal history of nicotine dependence
CPT/HCPCS: 36415; 74177; 80053; 81001; 83690; 85025; 96361; 96374; 96375; 99284; A9270; J1171; J2405; J2470; J2765; J7030; Q9967

== ENCOUNTER 2025-06-18 15:35 | Outpatient (CLI) | payer OTHER, MEDICARE, SELFPAY ==
--- NOTE | ~2025-06-18 | MM_ITS ---
EXAMINATION: MM screening joelle BI w liam HISTORY: Screening. TECHNIQUE: Craniocaudal and mediolateral oblique 3-D tomosynthesis images were obtained and synthetic 2-D images were generated. CAD analysis was submitted and interpreted. COMPARISON: None available. BREAST PARENCHYMAL COMPOSITION: Dense: The breasts are heterogeneously dense FINDINGS: There is/are retropectoral silicone implants. The presence of implants decreases the sensitivity of mammography. No suspicious masses are seen. There are no suspicious calcifications. No unexplained architectural distortion is seen. There are no skin or nipple abnormalities identified. There is no adenopathy seen on the images submitted. IMPRESSION: No mammographic evidence to suggest malignancy is seen. The patient may return to screening mammography as per ACR guidelines. BI-RADS 1 - Negative. Reviewed, dictated and finalized at location C. R SYSTEM ENGINEER
== END 2025-06-18 15:36 | disposition home or self-care (01) ==
LOC: ANHFOHIMG 15:45
PROVIDERS: PCP Student in an Organized Health Care Education/Training Program; Visit Provider Student in an Organized Health Care Education/Training Program
DX: Z12.31 Encounter for screening mammogram for malignant neoplasm of breast (principal)
CPT/HCPCS: 77063; 77067